=== PATIENT | male | born 1975 | race African-American/Black ===

== ENCOUNTER 2018-06-19 10:23 | Day surgery (SDC) | payer MEDICARE, MEDICAID ==
[~2018-06-19] VITALS: Ht 170.2 cm; Wt 67.2 kg
[~2018-06-19 10:23] MED LIST: ASPI-1159 PO; BUDE6.9H IH
[2018-06-19] MEDS ORDERED: LIDOCAINE HCL 1% 20ML VIAL (Pyxis) INJ ONE ×3 (10:44→13:45)
[2018-06-19] MEDS ORDERED: BACITRACIN 15GM TUBE TOP ONE ×2 (10:46→13:14)
[2018-06-19] MEDS ORDERED: HEPARIN SODIUM 1,000 UNIT/1ML VIAL IV ONE ×2 (10:46→13:46)
[2018-06-19] MEDS ORDERED: THROMBIN (BOVINE) 5000 UNITS/VIAL TOP ONE ×2 (10:46→13:46)
[2018-06-19] MEDS ORDERED: NORMAL SALINE 0.9% 10 ML SYR ONE (10:47)
[2018-06-19] MEDS ORDERED: BUPIVACAINE HCL/PF 0.5% (5MG/ML) 10ML ONE (10:47)
[2018-06-19] MEDS ORDERED: BACITRACIN 50,000 UNITS/VIAL ONE ×2 (10:47→13:46)
[2018-06-19 11:35] LABS: BASOPHILS % 0.9 % (0.0-2.0); EOSINOPHILS % 9.1 % (0.0-5.0); HEMATOCRIT. 42.2 % (42.0-52.0); HEMOGLOBIN. 13.2 g/dL (14.0-18.0); LYMPHOCYTES % 7.2 % (20.0-50.0); MEAN CORPUSCULAR HEMOGLOBIN 23.9 pg (28.0-32.0); MEAN CORPUSCULAR VOLUME 76.9 fL (80.0-94.0); MEAN PLATELET VOLUME 8.5 fl (7.4-10.4); MONOCYTES % 10.3 % (2.0-8.0); NEUTROPHILS % 72.5 % (40.0-76.0); PLATELET 217 x1000/uL (130-400); RED BLOOD CELL COUNT 5.49 mill/uL (4.7-6.1); RED CELL DISTRIBUTION WIDTH 18.9 % (11.6-14.6)
[2018-06-19 11:41] LABS: INR 1.1; PARTIAL THROMBOPLASTIN TIME 28.7 sec (23.4-31.0)
[2018-06-19] MEDS ORDERED: PROPOFOL 200MG/20ML VIAL IV ONE (11:49)
[2018-06-19] MEDS ORDERED: MIDAZOLAM HCL 2 MG/2 ML VIAL ONE (11:49)
[2018-06-19] MEDS ORDERED: ROCURONIUM BROMIDE 10MG/ML VIAL 5ML IV ONE (11:49)
[2018-06-19] MEDS ORDERED: EPHEDRINE SULFATE 50MG/ML VIAL ONE ×2 (11:49→11:50)
[2018-06-19] MEDS ORDERED: FENTANYL CITRATE/PF 50MCG/ML 2ML VIAL ONE (11:49)
[2018-06-19] MEDS ORDERED: PHENYLEPHRINE HCL 10 MG/ML 1ML (IV VIAL) IV ONE (11:50)
[2018-06-19] MEDS ORDERED: SODIUM CHLORIDE 0.9% 500 ML IV ONE (12:00)
[2018-06-19] MEDS ORDERED: REN800 PO (12:04)
[2018-06-19] MEDS ORDERED: FOLI1TAB63 PO (12:04)
[2018-06-19] MEDS ORDERED: ATOR10TA69 PO (12:04)
[2018-06-19] MEDS ORDERED: AMLO10TA80 PO (12:04)
[2018-06-19] MEDS ORDERED: CINA30 PO (12:04)
[2018-06-19] MEDS ORDERED: CEFAZOLIN SODIUM 1000MG/VIAL ONE (12:09)
[2018-06-19] MEDS ORDERED: SODIUM CHLORIDE 0.9% 10ML VIAL ONE (12:09)
[2018-06-19] MEDS ORDERED: HEPARIN 1000 UNITS/ML 10ML ONE (12:23)
[2018-06-19] MEDS ORDERED: BUPIVACAINE HCL/PF 0.25% (2.5MG/ML) 10ML ONE (13:45)
[2018-06-19] MEDS ORDERED: BACITRACIN/POLYMYXIN B SULFATE OINT 28.35GM TOP ONE (13:45)
[2018-06-19] MEDS ORDERED: HEPARIN 5000 UNITS/ML VIAL ONE (13:45)
[2018-06-19] MEDS ORDERED: HYDROMORPHONE HCL/PF 2MG/ML CPJ IV PRN (14:00)
[2018-06-19] MEDS ORDERED: ONDANSETRON HCL 4MG/2ML INJ IV PRN (14:15)
[2018-06-19] MEDS ORDERED: HEPARIN SODIUM 1,000 UNIT/1ML VIAL IV NR (14:30)
[2018-06-19] MEDS ORDERED: PROTAMINE SULFATE 10MG/ML VIAL 25ML IV NR (14:30)
[2018-06-19 14:54] VITALS: BP 124/92
== END 2018-06-19 16:25 | disposition home or self-care (01) ==
LOC: OR 10:23
PROVIDERS: ATTEND Surgery Vascular Surgery
DX: I12.0 Hypertensive chronic kidney disease with stage 5 chronic kidney disease or end stage renal disease (principal); N18.6 End stage renal disease; E78.00 Pure hypercholesterolemia, unspecified; J45.909 Unspecified asthma, uncomplicated; Z87.891 Personal history of nicotine dependence; Z79.899 Other long term (current) drug therapy; Z79.82 Long term (current) use of aspirin; Z86.73 Personal history of transient ischemic attack (TIA), and cerebral infarction without residual deficits; Z99.2 Dependence on renal dialysis
CPT/HCPCS: 36415; 36821; 80048; 85025; 85610; 85730; 93005; J0690; J1170; J1644; J2250; J2370; J2704; J2720; J3010; J3490

== ENCOUNTER 2018-06-20 15:27 | Emergency (ER) | payer MEDICARE, MEDICAID ==
[~2018-06-20] VITALS: Ht 182.9 cm; Wt 65.0 kg
[~2018-06-20 15:27] MED LIST changes: +AMLO10TA80 PO; +ATOR10TA69 PO; +CINA30 PO; +FOLI1TAB63 PO; +REN800 PO
[2018-06-20 18:08] VITALS: BP 123/83
== END 2018-06-20 18:11 | disposition home or self-care (01) ==
LOC: ER 15:27
DX: I77.0 Arteriovenous fistula, acquired (principal); I10 Essential (primary) hypertension; Z86.73 Personal history of transient ischemic attack (TIA), and cerebral infarction without residual deficits; Z98.890 Other specified postprocedural states; Z79.82 Long term (current) use of aspirin; Z79.899 Other long term (current) drug therapy
CPT/HCPCS: 99283

== ENCOUNTER 2018-07-31 09:12 | Day surgery (SDC) | payer MEDICARE, MEDICAID ==
[~2018-07-31] VITALS: Ht 182.9 cm; Wt 65.5 kg
[~2018-07-31 09:12] MED LIST changes: -ASPI-1159 PO; +ASPI-1393 PO
[2018-07-31 10:39] LABS: HEMATOCRIT. 41.1 % (42.0-52.0); HEMOGLOBIN. 12.8 g/dL (14.0-18.0); MEAN CORPUSCULAR HEMOGLOBIN 24.4 pg (28.0-32.0); MEAN PLATELET VOLUME 7.9 fl (7.4-10.4); PLATELET 192 x1000/uL (130-400); RED BLOOD CELL COUNT 5.26 mill/uL (4.7-6.1); RED CELL DISTRIBUTION WIDTH 20.1 % (11.6-14.6)
[2018-07-31 10:50] LABS: PROTHROMBIN TIME 10.5 sec (9.6-11.0)
[2018-07-31] MEDS ORDERED: SODIUM CHLORIDE 0.9% 500 ML IV ONE (11:00)
[2018-07-31] MEDS ORDERED: BACITRACIN 15GM TUBE TOP ONE (11:00)
[2018-07-31] MEDS ORDERED: LIDOCAINE HCL 1% 20ML VIAL (Pyxis) INJ ONE (11:01)
[2018-07-31] MEDS ORDERED: BUPIVACAINE HCL/PF 0.5% (5MG/ML) 10ML ONE (11:01)
[2018-07-31] MEDS ORDERED: THROMBIN (BOVINE) 5000 UNITS/VIAL TOP ONE ×2 (11:01→11:42)
[2018-07-31] MEDS ORDERED: HEPARIN SODIUM 1,000 UNIT/1ML VIAL IV ONE ×2 (11:01→14:45)
[2018-07-31] MEDS ORDERED: NORMAL SALINE 0.9% 10 ML SYR ONE (11:02)
[2018-07-31] MEDS ORDERED: BACITRACIN 50,000 UNITS/VIAL ONE (11:02)
[2018-07-31 11:28] LABS: PLATELET ESTIMATE NORMAL
[2018-07-31] MEDS ORDERED: PROPOFOL 200MG/20ML VIAL IV ONE (11:34)
[2018-07-31] MEDS ORDERED: LIDOCAINE HCL/PF 1% 10 MG/ML 5ML VIAL ONE (11:34)
[2018-07-31] MEDS ORDERED: MIDAZOLAM HCL 2 MG/2 ML VIAL ONE (11:35)
[2018-07-31] MEDS ORDERED: FENTANYL CITRATE/PF 50MCG/ML 2ML VIAL ONE ×2 (11:36→12:09)
[2018-07-31] MEDS ORDERED: PHENYLEPHRINE HCL 10 MG/ML 1ML (IV VIAL) IV ONE ×2 (11:59→12:28)
[2018-07-31] MEDS ORDERED: EPHEDRINE SULFATE 50MG/ML VIAL ONE (11:59)
[2018-07-31] MEDS ORDERED: SODIUM CHLORIDE 0.9% 10ML VIAL ONE (12:00)
[2018-07-31] MEDS ORDERED: CEFAZOLIN SODIUM 1000MG/VIAL ONE (12:01)
[2018-07-31] MEDS ORDERED: HEPARIN 1000 UNITS/ML 10ML ONE (12:20)
[2018-07-31] MEDS ORDERED: ONDANSETRON HCL 4MG/2ML INJ ONE (12:41)
[2018-07-31] MEDS ORDERED: HYDROMORPHONE HCL/PF 2MG/ML CPJ IV PRN (13:00)
[2018-07-31] MEDS ORDERED: MORPHINE SULFATE 2 MG/ML CPJ (NOT FOR IM USE) IV PRN (13:00)
[2018-07-31] MEDS ORDERED: ONDANSETRON HCL 4MG/2ML INJ IV PRN (13:00)
[2018-07-31] MEDS ORDERED: FENTANYL CITRATE/PF 50MCG/ML 2ML VIAL IV PRN (13:00)
[2018-07-31] MEDS ORDERED: MEPERIDINE HCL/PF 25MG/ML CPJ IV PRN (13:00)
[2018-07-31] MEDS ORDERED: HEPARIN SODIUM 1,000 UNIT/1ML VIAL IV NR ×2 (13:30→14:45)
== END 2018-07-31 14:55 | disposition home or self-care (01) ==
LOC: OR 09:12
PROVIDERS: ATTEND Surgery Vascular Surgery
DX: I12.0 Hypertensive chronic kidney disease with stage 5 chronic kidney disease or end stage renal disease (principal); N18.6 End stage renal disease; S40.022A Contusion of left upper arm, initial encounter; J45.909 Unspecified asthma, uncomplicated; T82.858D Stenosis of other vascular prosthetic devices, implants and grafts, subsequent encounter; Z86.73 Personal history of transient ischemic attack (TIA), and cerebral infarction without residual deficits; Z79.899 Other long term (current) drug therapy; Z87.891 Personal history of nicotine dependence; Z79.82 Long term (current) use of aspirin; X58.XXXA Exposure to other specified factors, initial encounter; Y93.89 Activity, other specified; Y92.89 Other specified places as the place of occurrence of the external cause; Y99.8 Other external cause status
CPT/HCPCS: 10140; 36415; 36830; 80048; 85025; 85610; 85730; C1768; J0690; J1644; J2250; J2370; J2405; J2704; J3010; J3490

== ENCOUNTER 2018-12-09 10:19 | Day surgery (SDC) | payer MEDICARE, MEDICAID ==
[~2018-12-09] VITALS: Ht 182.9 cm; Wt 65.5 kg
[2018-12-09] MEDS ORDERED: BACITRACIN 15GM TUBE TOP ONE (11:00)
[2018-12-09] MEDS ORDERED: THROMBIN (BOVINE) 5000 UNITS/VIAL TOP ONE (11:00)
[2018-12-09] MEDS ORDERED: LIDOCAINE HCL 1% 20ML VIAL (Pyxis) INJ ONE (11:00)
[2018-12-09] MEDS ORDERED: HEPARIN SODIUM 1,000 UNIT/1ML VIAL IV ONE (11:00)
[2018-12-09] MEDS ORDERED: BUPIVACAINE HCL/PF 0.5% (5MG/ML) 10ML ONE (11:01)
[2018-12-09] MEDS ORDERED: BACITRACIN 50,000 UNITS/VIAL ONE (11:02)
[2018-12-09 11:55] LABS: HEMATOCRIT. 36.6 % (42.0-52.0); HEMOGLOBIN. 11.8 g/dL (14.0-18.0); MEAN CORPUSCULAR HEMOGLOBIN 27.4 pg (28.0-32.0); MEAN CORPUSCULAR VOLUME 84.7 fL (80.0-94.0); MEAN PLATELET VOLUME 7.7 fl (7.4-10.4); PLATELET 304 x1000/uL (130-400); RED BLOOD CELL COUNT 4.32 mill/uL (4.7-6.1); RED CELL DISTRIBUTION WIDTH 17.5 % (11.6-14.6)
[2018-12-09] MEDS ORDERED: SODIUM CHLORIDE 0.9% 500 ML IV ONE (12:00)
[2018-12-09 12:12] LABS: PARTIAL THROMBOPLASTIN TIME 26.6 sec (23.4-31.0); PROTHROMBIN TIME 10.7 sec (9.6-11.0)
[2018-12-09 12:40] LABS: PLATELET ESTIMATE NORMAL
[2018-12-09] MEDS ORDERED: FENTANYL CITRATE/PF 50MCG/ML 2ML VIAL ONE ×2 (15:46→15:58)
[2018-12-09] MEDS ORDERED: MIDAZOLAM HCL 2 MG/2 ML VIAL ONE ×2 (15:46→15:58)
[2018-12-09] MEDS ORDERED: PROPOFOL 200MG/20ML VIAL IV ONE (15:56)
[2018-12-09] MEDS ORDERED: MEPERIDINE HCL/PF 25MG/ML CPJ IV PRN (16:15)
[2018-12-09] MEDS ORDERED: ONDANSETRON HCL 4MG/2ML INJ IV PRN (16:15)
[2018-12-09] MEDS ORDERED: LABETALOL 5MG/ML SYR 20 MG/4 ML SYRINGE IV PRN (16:15)
[2018-12-09] MEDS ORDERED: HYDROMORPHONE HCL/PF 2MG/ML CPJ IV PRN (16:15)
== END 2018-12-09 17:55 | disposition home or self-care (01) ==
LOC: OR 10:19
PROVIDERS: ATTEND Surgery Vascular Surgery
DX: T82.868A Thrombosis due to vascular prosthetic devices, implants and grafts, initial encounter (principal); I12.0 Hypertensive chronic kidney disease with stage 5 chronic kidney disease or end stage renal disease; N18.6 End stage renal disease; E78.00 Pure hypercholesterolemia, unspecified; J45.909 Unspecified asthma, uncomplicated; Z79.899 Other long term (current) drug therapy; Z99.2 Dependence on renal dialysis; Z79.82 Long term (current) use of aspirin; Z72.89 Other problems related to lifestyle; Y83.2 Surgical operation with anastomosis, bypass or graft as the cause of abnormal reaction of the patient, or of later complication, without mention of misadventure at the time of the procedure; Y92.89 Other specified places as the place of occurrence of the external cause
CPT/HCPCS: 36415; 36831; 80048; 85025; 85610; 85730; 88304; 93005; C1884; J1644; J2250; J2704; J3010; J3490; J7040

== ENCOUNTER 2019-03-07 15:21 | Inpatient (IN) | payer MEDICARE, MEDICAID ==
[~2019-03-07] VITALS: Ht 182.9 cm; Wt 68.5 kg
[~2019-03-07 15:21] MED LIST changes: -AMLO10TA80 PO; -ASPI-1393 PO; +ASPI-1497 PO
[2019-03-07] MEDS ORDERED: ACETAMINOPHEN 325MG TABLET PO STA (16:16)
[2019-03-07] MEDS ORDERED: SODIUM CHLORIDE 0.9% 1000ML BAG (SEPSIS BOLUS) IV ONE (16:30)
[2019-03-07] MEDS ORDERED: VANCOMYCIN 1 G PREMIX 200 ML IV ONE (16:30)
[2019-03-07] MEDS ORDERED: PIPERACILLIN/TAZ 3.375G PREMIX 50 ML IV ONE (16:30)
[2019-03-07 16:51] LABS: CHLORIDE 93 mEq/L (98-107)
[2019-03-07 16:53] LABS: HEMATOCRIT. 34.5 % (42.0-52.0); MEAN CORPUSCULAR HEMOGLOBIN 25.7 pg (28.0-32.0); MEAN CORPUSCULAR VOLUME 80.4 fL (80.0-94.0); MEAN PLATELET VOLUME 9.4 fl (7.4-10.4); PLATELET 220 x1000/uL (130-400); RED BLOOD CELL COUNT 4.29 mill/uL (4.7-6.1); RED CELL DISTRIBUTION WIDTH 15.9 % (11.6-14.6)
[2019-03-07 16:54] LABS: INR 1.1; PROTHROMBIN TIME 10.9 sec (9.6-11.0)
[2019-03-07 17:36] LABS: PLATELET ESTIMATE NORMAL
[2019-03-07] MEDS ORDERED: ENOXAPARIN 40MG/0.4ML SYR SUBCUT SCH (19:15)
[2019-03-07] MEDS ORDERED: IPRATROPIUM/ALBUTEROL 0.5-3(2.5)MG/3ML NEB NEB PRN (19:15)
[2019-03-07] MEDS ORDERED: CLONIDINE 0.1MG TABLET PO PRN (19:15)
[2019-03-07] MEDS ORDERED: NITROGLYCERIN 0.4MG TABLET SL SL PRN (19:15)
[2019-03-07] MEDS ORDERED: DOCUSATE SODIUM 100MG CAPSULE PO PRN (19:15)
[2019-03-07] MEDS ORDERED: ONDANSETRON HCL 4MG/2ML INJ IV PRN (19:15)
[2019-03-07] MEDS ORDERED: MAGNESIUM/ALUMINUM HYDROXIDE/SIMETHICONE 30ML UDC PO PRN (19:15)
[2019-03-07] MEDS ORDERED: DEXT 5%/LACTATED RINGERS 1,000 ML IV SCH ×2 (19:28)
[2019-03-07] MEDS ORDERED: SODIUM CHLORIDE 0.9% 1,000 ML IV ONE (19:30)
[2019-03-07] MEDS ORDERED: NOREPINEPHRINE 4 MG in DEXT 5% WATER 246 ML IV ONE ×2 (20:15→20:45)
[2019-03-07] MEDS ORDERED: NOREPINEPHRINE 4MG/250ML PMX 250 ML IV ONE (20:30)
[2019-03-07] MEDS ORDERED: TRAMADOL 50MG TABLET PO PRN (22:00)
[2019-03-07] MEDS ORDERED: ZOLPIDEM TARTRATE 5MG TABLET PO PRN (22:00)
[2019-03-07] MEDS ORDERED: PIPERACILLIN/TAZ 3.375G PREMIX 50 ML IV NR (23:46)
[2019-03-08 01:04] LABS: CREATINE KINASE 74 IU/L (39-308)
[2019-03-08 01:05] LABS: CREATINE KINASE MB FRACTION < 1.0 ng/mL (0.5-3.6)
[2019-03-08] MEDS ORDERED: ALBUMIN HUMAN 25GM/100ML (25%) IV NR (02:00)
[2019-03-08] MEDS: GUAIFENESIN 200MG/10ML SUGAR FREE UDC PO PRN (02:25)
[2019-03-08] MEDS: ACETAMINOPHEN 325MG TABLET PO PRN (02:25)
[2019-03-08 05:40] LABS: CHLORIDE 98 mEq/L (98-107)
[2019-03-08 05:45] LABS: HEMOGLOBIN. 9.2 g/dL (14.0-18.0); MEAN CORPUSCULAR HEMOGLOBIN 25.5 pg (28.0-32.0); MEAN CORPUSCULAR VOLUME 80.1 fL (80.0-94.0); MEAN PLATELET VOLUME 9.6 fl (7.4-10.4); PLATELET 210 x1000/uL (130-400); RED BLOOD CELL COUNT 3.63 mill/uL (4.7-6.1); RED CELL DISTRIBUTION WIDTH 16.1 % (11.6-14.6)
[2019-03-08 05:48] LABS: CREATINE KINASE 69 IU/L (39-308)
[2019-03-08 05:50] LABS: CREATINE KINASE MB FRACTION < 1.0 ng/mL (0.5-3.6)
[2019-03-08] MEDS: PIPERACILLIN/TAZ 3.375G PREMIX 50 ML IV SCH ×2 (06:00→14:00)
[2019-03-08] MEDS ORDERED: NOREPINEPHRINE 4MG/250ML PMX 250 ML IV ONE (06:41)
[2019-03-08 07:17] LABS: PLATELET ESTIMATE NORMAL
[2019-03-08] MEDS ORDERED: ASPIRIN 325MG EC TABLET PO SCH (09:00)
[2019-03-08] MEDS: SEVELAMER CARBONATE 800 MG TABLET PO SCH ×3 (09:00→13:00)
[2019-03-08] MEDS: ZINC SULFATE 220 MG ( 50 ) CAPSULE PO SCH (09:00)
[2019-03-08] MEDS ORDERED: NOREPINEPHRINE 4MG/250ML PMX 250 ML IV NR (15:07)
[2019-03-08] MEDS ORDERED: PIPERACILLIN/TAZ 3.375G PREMIX 50 ML IV NR (16:45)
[2019-03-09] VITALS (73 sets, daily range): BP systolic 52–140; BP diastolic 22–104
[2019-03-09] MEDS: ACETAMINOPHEN 325MG TABLET PO PRN ×2 (02:50→15:40)
[2019-03-09] MEDS ORDERED: DIPY75TA37 MT (04:33)
[2019-03-09] MEDS ORDERED: [UNRECOGNIZED DRUG - OTHER] (04:33)
[2019-03-09] MEDS ORDERED: SEVE800T8 MT (04:33)
[2019-03-09] MEDS: PIPERACILLIN/TAZOBACTAM 2.25 G in DEXTROSE 5% WATER 50 ML IV SCH ×3 (05:08→21:05)
[2019-03-09] MEDS: NOREPINEPHRINE 16 MG in DEXT 5% WATER 234 ML IV PRN ×2 (05:31→21:22)
[2019-03-09 06:01] LABS: HEMATOCRIT. 31.7 % (42.0-52.0); HEMOGLOBIN. 9.9 g/dL (14.0-18.0); MEAN CORPUSCULAR HEMOGLOBIN 25.1 pg (28.0-32.0); MEAN CORPUSCULAR VOLUME 80.1 fL (80.0-94.0); MEAN PLATELET VOLUME 9.1 fl (7.4-10.4); PLATELET 263 x1000/uL (130-400); RED BLOOD CELL COUNT 3.96 mill/uL (4.7-6.1); RED CELL DISTRIBUTION WIDTH 16.2 % (11.6-14.6)
[2019-03-09 07:45] LABS: PLATELET ESTIMATE NORMAL
[2019-03-09] MEDS ORDERED: CEFAZOLIN SODIUM 1000MG/VIAL IM ONE (08:15)
[2019-03-09] MEDS ORDERED: SODIUM BICARBONATE 4% (2.4MEQ) 5ML VIAL IV ONE (08:24)
[2019-03-09] MEDS ORDERED: LIDOCAINE HCL 1% 20ML VIAL (Pyxis) INJ ONE (08:24)
[2019-03-09] MEDS: SEVELAMER CARBONATE 800 MG TABLET PO SCH ×3 (08:34→17:09)
[2019-03-09] MEDS: GUAIFENESIN/DM 600MG/30MG ER TAB 12HR PO SCH ×2 (08:34→23:33)
[2019-03-09] MEDS: FAMOTIDINE 20MG TABLET PO SCH (08:34)
[2019-03-09] MEDS: ZINC SULFATE 220 MG ( 50 ) CAPSULE PO SCH (08:34)
[2019-03-09] MEDS: ASCORBIC ACID 500 MG TABLET PO SCH ×2 (08:34→21:10)
[2019-03-09] MEDS ORDERED: DOPAMINE 400MG/250ML PREMIX 250 ML IV PRN (09:15)
[2019-03-09] MEDS ORDERED: VASOPRESSIN 10 UNIT in SODIUM CHLORIDE 0.9% 99.5 ML IV PRN (09:30)
[2019-03-09 09:50] LABS: INR 1.2
[2019-03-09] MEDS ORDERED: PHENYLEPHRINE HCL 10 MG/ML 1ML (IV VIAL) IV ONE (09:51)
[2019-03-09] MEDS: PHENYLEPHRINE 40 MG in DEXT 5% WATER 246 ML IV PRN ×4 (10:08→22:40)
[2019-03-09] MEDS ORDERED: CEFAZOLIN 1000MG PREMIX 50 ML IV SCH (12:00)
[2019-03-09] MEDS ORDERED: VANCOMYCIN 750 MG PREMIX 150 ML IV SCH (12:00)
[2019-03-09] MEDS: IPRATROPIUM/ALBUTEROL 0.5-3(2.5)MG/3ML NEB HHN SCH ×2 (16:30→20:48)
[2019-03-09] MEDS: ACETYLCYSTEINE 100MG/ML 10% VIAL 4ML INH SCH (16:31)
[2019-03-09] MEDS: ATORVASTATIN CALCIUM 10MG TABLET PO SCH (21:10)
[2019-03-10] VITALS (100 sets, daily range): BP systolic 55–167; BP diastolic 23–111
[2019-03-10] MEDS: IPRATROPIUM/ALBUTEROL 0.5-3(2.5)MG/3ML NEB HHN SCH ×7 (00:21→21:08)
[2019-03-10] MEDS: ACETYLCYSTEINE 100MG/ML 10% VIAL 4ML INH SCH ×3 (00:21→17:58)
[2019-03-10] MEDS: PHENYLEPHRINE 40 MG in DEXT 5% WATER 246 ML IV PRN (03:56)
[2019-03-10] MEDS: PIPERACILLIN/TAZOBACTAM 2.25 G in DEXTROSE 5% WATER 50 ML IV SCH ×2 (03:56→11:26)
[2019-03-10 06:20] LABS: HEMATOCRIT. 34.1 % (42.0-52.0); HEMOGLOBIN. 10.8 g/dL (14.0-18.0); MEAN CORPUSCULAR HEMOGLOBIN 25.4 pg (28.0-32.0); MEAN CORPUSCULAR VOLUME 80.4 fL (80.0-94.0); MEAN PLATELET VOLUME 9.3 fl (7.4-10.4); PLATELET 316 x1000/uL (130-400); RED BLOOD CELL COUNT 4.24 mill/uL (4.7-6.1); RED CELL DISTRIBUTION WIDTH 16.3 % (11.6-14.6)
[2019-03-10] MEDS: GUAIFENESIN/DM 600MG/30MG ER TAB 12HR PO SCH ×4 (07:08→20:51)
[2019-03-10] MEDS: ENOXAPARIN 30MG/0.3ML SYR SUBCUT SCH (08:29)
[2019-03-10] MEDS: FAMOTIDINE 20MG TABLET PO SCH (08:29)
[2019-03-10] MEDS: ASCORBIC ACID 500 MG TABLET PO SCH ×2 (08:29→20:51)
[2019-03-10] MEDS: ZINC SULFATE 220 MG ( 50 ) CAPSULE PO SCH (08:29)
[2019-03-10] MEDS: SEVELAMER CARBONATE 800 MG TABLET PO SCH ×3 (08:30→17:34)
[2019-03-10] MEDS: NOREPINEPHRINE 16 MG in DEXT 5% WATER 234 ML IV PRN (11:19)
[2019-03-10] MEDS: METOCLOPRAMIDE HCL 10MG/2ML VIAL IV SCH ×3 (12:49→23:25)
[2019-03-10] MEDS: CHLORPROMAZINE HCL 10 MG TABLET PO SCH ×3 (13:38→21:27)
[2019-03-10 17:06] LABS: PLATELET ESTIMATE NORMAL
[2019-03-10] MEDS: CEFAZOLIN 2,000 MG in DEXT 5% WATER 100 ML IV SCH (17:34)
[2019-03-10] MEDS: CEFTAZIDIME PENTAHYDRATE 1 G in DEXTROSE 5% WATER 50 ML IV SCH (17:34)
[2019-03-10] MEDS: ATORVASTATIN CALCIUM 10MG TABLET PO SCH (20:51)
[2019-03-10] MEDS: AMIODARONE HCL 200 MG TABLET PO PRN (23:25)
[2019-03-11] VITALS (98 sets, daily range): BP systolic 66–137; BP diastolic 36–99
[2019-03-11] MEDS: PHENYLEPHRINE 40 MG in DEXT 5% WATER 246 ML IV PRN ×3 (03:38→12:13)
[2019-03-11] MEDS: CHLORPROMAZINE HCL 10 MG TABLET PO SCH ×3 (05:34→21:51)
[2019-03-11] MEDS: METOCLOPRAMIDE HCL 10MG/2ML VIAL IV SCH ×3 (05:34→17:25)
[2019-03-11 06:19] LABS: HEMATOCRIT. 26.6 % (42.0-52.0); HEMOGLOBIN. 8.5 g/dL (14.0-18.0); MEAN CORPUSCULAR HEMOGLOBIN 25.5 pg (28.0-32.0); MEAN CORPUSCULAR VOLUME 79.4 fL (80.0-94.0); MEAN PLATELET VOLUME 9.4 fl (7.4-10.4); PLATELET 329 x1000/uL (130-400); RED BLOOD CELL COUNT 3.35 mill/uL (4.7-6.1); RED CELL DISTRIBUTION WIDTH 16.5 % (11.6-14.6)
[2019-03-11] MEDS ORDERED: CEFAZOLIN SODIUM 1000MG/VIAL IM ONE (06:45)
[2019-03-11] MEDS: GUAIFENESIN/DM 600MG/30MG ER TAB 12HR PO SCH ×2 (09:20→21:51)
[2019-03-11] MEDS: SEVELAMER CARBONATE 800 MG TABLET PO SCH ×3 (09:20→18:41)
[2019-03-11] MEDS: FAMOTIDINE 20MG TABLET PO SCH (09:20)
[2019-03-11] MEDS: ASCORBIC ACID 500 MG TABLET PO SCH ×2 (09:20→21:51)
[2019-03-11] MEDS: AMIODARONE HCL 200 MG TABLET PO PRN ×2 (09:20→17:35)
[2019-03-11] MEDS: ZINC SULFATE 220 MG ( 50 ) CAPSULE PO SCH (09:21)
[2019-03-11] MEDS: ENOXAPARIN 30MG/0.3ML SYR SUBCUT SCH (09:21)
[2019-03-11 09:41] LABS: PLATELET ESTIMATE NORMAL
[2019-03-11 10:11] LABS: HEPATITIS B SURFACE ANTIGEN NEGATIVE
[2019-03-11] MEDS: MIDODRINE HCL 2.5MG TABLET PO SCH ×2 (12:13→17:25)
[2019-03-11] MEDS ORDERED: PHENYLEPHRINE 80 MG in DEXT 5% WATER 500 ML IV PRN (12:15)
[2019-03-11] MEDS: CEFTAZIDIME PENTAHYDRATE 1 G in DEXTROSE 5% WATER 50 ML IV SCH (13:15)
[2019-03-11] MEDS: CEFAZOLIN 2,000 MG in DEXT 5% WATER 100 ML IV SCH (17:25)
[2019-03-11] MEDS: IPRATROPIUM/ALBUTEROL 0.5-3(2.5)MG/3ML NEB HHN SCH (20:00)
[2019-03-11] MEDS ORDERED: EPOETIN ALFA 10000UNITS/ML VIAL SUBCUT SCH (21:00)
[2019-03-11] MEDS ORDERED: EPOETIN ALFA 4000UNITS/ML VIAL SUBCUT SCH (21:00)
[2019-03-11] MEDS: ATORVASTATIN CALCIUM 10MG TABLET PO SCH (21:51)
[2019-03-12] VITALS (46 sets, daily range): BP systolic 96–131; BP diastolic 49–82
[2019-03-12] MEDS: METOCLOPRAMIDE HCL 10MG/2ML VIAL IV SCH ×4 (00:05→18:29)
[2019-03-12] MEDS: CHLORPROMAZINE HCL 10 MG TABLET PO SCH ×3 (05:00→21:17)
[2019-03-12 05:11] LABS: HIV SCREEN 4G Non Reactive (Non Reactive)
[2019-03-12 05:58] LABS: HEMATOCRIT. 25.5 % (42.0-52.0); HEMOGLOBIN. 8.2 g/dL (14.0-18.0); MEAN CORPUSCULAR HEMOGLOBIN 25.6 pg (28.0-32.0); MEAN CORPUSCULAR VOLUME 79.4 fL (80.0-94.0); MEAN PLATELET VOLUME 8.9 fl (7.4-10.4); PLATELET 378 x1000/uL (130-400); RED BLOOD CELL COUNT 3.22 mill/uL (4.7-6.1); RED CELL DISTRIBUTION WIDTH 16.6 % (11.6-14.6)
[2019-03-12] MEDS ORDERED: CEFAZOLIN SODIUM 1000MG/VIAL IM ONE (08:00)
[2019-03-12] MEDS: IPRATROPIUM/ALBUTEROL 0.5-3(2.5)MG/3ML NEB HHN SCH ×4 (08:05→21:45)
[2019-03-12] MEDS: ACETYLCYSTEINE 100MG/ML 10% VIAL 4ML INH SCH ×3 (08:05→21:17)
[2019-03-12 08:25] LABS: PLATELET ESTIMATE NORMAL
[2019-03-12] MEDS: ZINC SULFATE 220 MG ( 50 ) CAPSULE PO SCH (08:39)
[2019-03-12] MEDS: FAMOTIDINE 20MG TABLET PO SCH (08:39)
[2019-03-12] MEDS: ASCORBIC ACID 500 MG TABLET PO SCH ×2 (08:39→21:16)
[2019-03-12] MEDS: GUAIFENESIN/DM 600MG/30MG ER TAB 12HR PO SCH ×2 (08:39→21:00)
[2019-03-12] MEDS: ENOXAPARIN 30MG/0.3ML SYR SUBCUT SCH (08:39)
[2019-03-12] MEDS: MIDODRINE HCL 2.5MG TABLET PO SCH ×3 (08:39→18:33)
[2019-03-12] MEDS: SEVELAMER CARBONATE 800 MG TABLET PO SCH ×3 (08:51→18:29)
[2019-03-12] MEDS: CEFTAZIDIME PENTAHYDRATE 1 G in DEXTROSE 5% WATER 50 ML IV SCH (15:36)
[2019-03-12] MEDS: CEFAZOLIN 2,000 MG in DEXT 5% WATER 100 ML IV SCH (18:32)
[2019-03-12] MEDS: AMIODARONE HCL 200 MG TABLET PO SCH (21:16)
[2019-03-12] MEDS: ATORVASTATIN CALCIUM 10MG TABLET PO SCH (21:16)
[2019-03-13] VITALS: BP 118/58
[2019-03-13] MEDS: METOCLOPRAMIDE HCL 10MG/2ML VIAL IV SCH ×3 (01:23→13:21)
[2019-03-13 04:00] VITALS: BP 99/47
[2019-03-13] MEDS: AMIODARONE HCL 200 MG TABLET PO SCH ×2 (05:50→13:22)
[2019-03-13] MEDS: CHLORPROMAZINE HCL 10 MG TABLET PO SCH ×2 (05:50→13:22)
[2019-03-13] MEDS: ACETYLCYSTEINE 100MG/ML 10% VIAL 4ML INH SCH ×2 (06:00→14:00)
[2019-03-13 08:00] VITALS: BP 106/52
[2019-03-13] MEDS: IPRATROPIUM/ALBUTEROL 0.5-3(2.5)MG/3ML NEB HHN SCH ×3 (08:00→16:00)
[2019-03-13] MEDS: FAMOTIDINE 20MG TABLET PO SCH ×2 (09:00→10:21)
[2019-03-13] MEDS: GUAIFENESIN/DM 600MG/30MG ER TAB 12HR PO SCH ×2 (09:00→10:28)
[2019-03-13] MEDS: MIDODRINE HCL 2.5MG TABLET PO SCH ×3 (09:00→17:43)
[2019-03-13] MEDS: SEVELAMER CARBONATE 800 MG TABLET PO SCH ×2 (10:20→13:21)
[2019-03-13] MEDS: GUAIFENESIN 200MG/10ML SUGAR FREE UDC PO PRN (10:21)
[2019-03-13] MEDS: ASCORBIC ACID 500 MG TABLET PO SCH (10:21)
[2019-03-13] MEDS: ZINC SULFATE 220 MG ( 50 ) CAPSULE PO SCH (10:21)
[2019-03-13] MEDS: ENOXAPARIN 30MG/0.3ML SYR SUBCUT SCH (10:22)
[2019-03-13 12:00] VITALS: BP 124/61
[2019-03-13] MEDS ORDERED: INSULIN LISPRO 100 UNITS/ML SUBCUT NR (13:15)
[2019-03-13] MEDS: CEFTAZIDIME PENTAHYDRATE 1 G in DEXTROSE 5% WATER 50 ML IV SCH (14:44)
[2019-03-13] MEDS: ACETAMINOPHEN 325MG TABLET PO PRN (15:33)
[2019-03-13 16:00] VITALS: BP 103/47
[2019-03-13 16:50] VITALS: BP 103/47
[2019-03-13] MEDS ORDERED: EPOETIN ALFA 10000UNITS/ML VIAL SUBCUT SCH (21:00)
== END 2019-03-13 17:50 | DRG 314 ==
LOC: ER 15:21 → EDBEDREQ 19:12 → SUPCPDRO 19:13 → EDBEDREQTM 19:48 → CVICU 20:16 → EDBEDREQSVC 20:18 → EDBEDREQTM 20:21 → ENRESERV 03-09 01:22 → 6WST 03-12 10:50
PROVIDERS: ADMIT Internal Medicine; ATTEND Internal Medicine
PROC: 05HY33Z Insertion of Infusion Device into Upper Vein, Percutaneous Approach (ICD-10-PCS; 2019-03-07)
PROC: B54NZZZ Ultrasonography of Left Upper Extremity Veins (ICD-10-PCS; 2019-03-07)
PROC: 5A1D70Z Performance of Urinary Filtration, Intermittent, Less than 6 Hours Per Day (ICD-10-PCS; principal; 2019-03-08)
PROC: 0JPV3XZ Removal of Tunneled Vascular Access Device from Upper Extremity Subcutaneous Tissue and Fascia, Percutaneous Approach (ICD-10-PCS; 2019-03-09)
PROC: 05PYX3Z Removal of Infusion Device from Upper Vein, External Approach (ICD-10-PCS; 2019-03-09)
DX: T80.211A Bloodstream infection due to central venous catheter, initial encounter (principal); A41.01 Sepsis due to Methicillin susceptible Staphylococcus aureus; R65.21 Severe sepsis with septic shock; J69.0 Pneumonitis due to inhalation of food and vomit; J96.00 Acute respiratory failure, unspecified whether with hypoxia or hypercapnia; N18.6 End stage renal disease; G92 Toxic encephalopathy; E87.1 Hypo-osmolality and hyponatremia; E44.0 Moderate protein-calorie malnutrition; D62 Acute posthemorrhagic anemia; E87.2 Acidosis; I13.11 Hypertensive heart and chronic kidney disease without heart failure, with stage 5 chronic kidney disease, or end stage renal disease; I69.351 Hemiplegia and hemiparesis following cerebral infarction affecting right dominant side; D63.8 Anemia in other chronic diseases classified elsewhere; E78.00 Pure hypercholesterolemia, unspecified; E78.5 Hyperlipidemia, unspecified; F17.210 Nicotine dependence, cigarettes, uncomplicated; I95.1 Orthostatic hypotension; J44.9 Chronic obstructive pulmonary disease, unspecified; R13.10 Dysphagia, unspecified; Y83.2 Surgical operation with anastomosis, bypass or graft as the cause of abnormal reaction of the patient, or of later complication, without mention of misadventure at the time of the procedure; R74.0 Nonspecific elevation of levels of transaminase and lactic acid dehydrogenase [LDH]; I44.0 Atrioventricular block, first degree; M25.512 Pain in left shoulder; Z79.51 Long term (current) use of inhaled steroids; Z82.49 Family history of ischemic heart disease and other diseases of the circulatory system; Z83.2 Family history of diseases of the blood and blood-forming organs and certain disorders involving the immune mechanism; Z99.2 Dependence on renal dialysis; Z68.20 Body mass index [BMI] 20.0-20.9, adult; I69.320 Aphasia following cerebral infarction; Z79.82 Long term (current) use of aspirin; Y92.89 Other specified places as the place of occurrence of the external cause
CPT/HCPCS: 36415; 36589; 71045; 71250; 73030; 80048; 80053; 80061; 80202; 82270; 83036; 83605; 83735; 84443; 84484; 85025; 85651; 86803; 87077; 87340; 87389; 92610; 93005; 93306; 93970; 94640; 97162; 99285; A6261; J0690; J0713; J0885; J1650; J2370; J2543; J2765; J3370; J3490; J7030; J7040; J7060; J7608; J7620; P9047; Q0161

== ENCOUNTER 2019-03-13 18:59 | Inpatient (IN) | payer MEDICARE, MEDICAID ==
[~2019-03-13] VITALS: Ht 182.9 cm; Wt 68.5 kg
[2019-03-13] MEDS: ACETYLCYSTEINE 100MG/ML 10% VIAL 4ML INH SCH (00:21)
[~2019-03-13 18:59] MED LIST changes: +DIPY75TA37 MT; +SEVE800T8 MT; +[UNRECOGNIZED DRUG - OTHER]
[2019-03-13] MEDS ORDERED: AMIODARONE HCL 200 MG TABLET PO SCH (19:30)
[2019-03-13] MEDS ORDERED: DOCUSATE SODIUM 100MG CAPSULE PO PRN (19:30)
[2019-03-13] MEDS ORDERED: CLONIDINE 0.1MG TABLET PO PRN (19:30)
[2019-03-13] MEDS ORDERED: ONDANSETRON HCL 4MG/2ML INJ IV PRN (19:30)
[2019-03-13] MEDS ORDERED: IPRATROPIUM/ALBUTEROL 0.5-3(2.5)MG/3ML NEB HHN PRN (19:30)
[2019-03-13] MEDS ORDERED: MAGNESIUM/ALUMINUM HYDROXIDE/SIMETHICONE 30ML UDC PO PRN (19:30)
[2019-03-13] MEDS ORDERED: GUAIFENESIN 200MG/10ML SUGAR FREE UDC PO PRN (19:30)
[2019-03-13] MEDS ORDERED: NITROGLYCERIN 0.4MG TABLET SL SL PRN (19:30)
[2019-03-13 20:00] VITALS: BP 119/65
[2019-03-13] MEDS: IPRATROPIUM/ALBUTEROL 0.5-3(2.5)MG/3ML NEB HHN SCH (21:00)
[2019-03-13] MEDS: ASCORBIC ACID 500 MG TABLET PO SCH (22:13)
[2019-03-13] MEDS: GUAIFENESIN/DM 600MG/30MG ER TAB 12HR PO SCH (22:13)
[2019-03-13] MEDS: ATORVASTATIN CALCIUM 10MG TABLET PO SCH (22:14)
[2019-03-13] MEDS: CHLORPROMAZINE HCL 10 MG TABLET PO SCH (22:59)
[2019-03-13] MEDS: EPOETIN ALFA 10000UNITS/ML VIAL SUBCUT SCH (22:59)
[2019-03-13] MEDS: AMIODARONE HCL 200 MG TABLET PO SCH (22:59)
[2019-03-13] MEDS: CEFAZOLIN 2,000 MG in DEXT 5% WATER 100 ML IV SCH (22:59)
[2019-03-13] MEDS: METOCLOPRAMIDE HCL 10MG/2ML VIAL IV SCH (23:56)
[2019-03-14] MEDS: IPRATROPIUM/ALBUTEROL 0.5-3(2.5)MG/3ML NEB HHN SCH ×5 (02:16→20:40)
[2019-03-14] MEDS: METOCLOPRAMIDE HCL 10MG/2ML VIAL IV SCH ×4 (05:43→23:35)
[2019-03-14] MEDS: CHLORPROMAZINE HCL 10 MG TABLET PO SCH ×4 (05:44→21:09)
[2019-03-14] MEDS: AMIODARONE HCL 200 MG TABLET PO SCH ×3 (05:45→21:08)
[2019-03-14 07:29] LABS: HEMATOCRIT. 27.6 % (42.0-52.0); HEMOGLOBIN. 8.6 g/dL (14.0-18.0); MEAN CORPUSCULAR HEMOGLOBIN 24.9 pg (28.0-32.0); MEAN CORPUSCULAR VOLUME 79.4 fL (80.0-94.0); MEAN PLATELET VOLUME 8.7 fl (7.4-10.4); PLATELET 577 x1000/uL (130-400); RED BLOOD CELL COUNT 3.48 mill/uL (4.7-6.1); RED CELL DISTRIBUTION WIDTH 16.5 % (11.6-14.6)
[2019-03-14 07:51] VITALS: BP 118/60
[2019-03-14 08:11] LABS: CHLORIDE 101 mEq/L (98-107)
[2019-03-14] MEDS: FAMOTIDINE 20MG TABLET PO SCH ×2 (09:00→09:04)
[2019-03-14] MEDS: ACETYLCYSTEINE 100MG/ML 10% VIAL 4ML INH SCH ×3 (09:00→22:00)
[2019-03-14] MEDS: ACETAMINOPHEN 325MG TABLET PO PRN (09:02)
[2019-03-14] MEDS: MIDODRINE HCL 2.5MG TABLET PO SCH ×3 (09:04→17:03)
[2019-03-14] MEDS: ASCORBIC ACID 500 MG TABLET PO SCH ×2 (09:04→21:08)
[2019-03-14] MEDS: ASPIRIN 325MG EC TABLET PO SCH (09:04)
[2019-03-14] MEDS: GUAIFENESIN/DM 600MG/30MG ER TAB 12HR PO SCH ×2 (09:04→21:00)
[2019-03-14] MEDS: ENOXAPARIN 30MG/0.3ML SYR SUBCUT SCH (09:04)
[2019-03-14] MEDS: ZINC SULFATE 220 MG ( 50 ) CAPSULE PO SCH (09:05)
[2019-03-14] MEDS: SEVELAMER CARBONATE 800 MG TABLET PO SCH ×3 (09:05→17:02)
[2019-03-14 12:32] VITALS: BP 123/62
[2019-03-14] MEDS ORDERED: CEFTAZIDIME PENTAHYDRATE 1 G in DEXTROSE 5% WATER 50 ML IV SCH (14:00)
[2019-03-14 16:58] VITALS: BP 119/58
[2019-03-14 20:00] VITALS: BP 99/54
[2019-03-14] MEDS: CEFAZOLIN 2,000 MG in DEXT 5% WATER 100 ML IV SCH (20:39)
[2019-03-14 20:40] LABS: PLATELET ESTIMATE INCREASED
[2019-03-14] MEDS: ATORVASTATIN CALCIUM 10MG TABLET PO SCH (21:08)
[2019-03-15] MEDS: IPRATROPIUM/ALBUTEROL 0.5-3(2.5)MG/3ML NEB HHN SCH ×6 (00:20→20:00)
[2019-03-15] MEDS: AMIODARONE HCL 200 MG TABLET PO SCH ×3 (05:54→21:11)
[2019-03-15] MEDS: METOCLOPRAMIDE HCL 10MG/2ML VIAL IV SCH ×4 (05:54→23:13)
[2019-03-15] MEDS: CHLORPROMAZINE HCL 10 MG TABLET PO SCH ×3 (05:54→21:13)
[2019-03-15] MEDS: ACETYLCYSTEINE 100MG/ML 10% VIAL 4ML INH SCH ×2 (05:59→14:00)
[2019-03-15 08:01] VITALS: BP 122/60
[2019-03-15] MEDS: ENOXAPARIN 30MG/0.3ML SYR SUBCUT SCH (08:51)
[2019-03-15] MEDS: ASCORBIC ACID 500 MG TABLET PO SCH ×2 (08:51→21:11)
[2019-03-15] MEDS: MIDODRINE HCL 2.5MG TABLET PO SCH ×3 (08:52→16:46)
[2019-03-15] MEDS: ASPIRIN 325MG EC TABLET PO SCH (08:52)
[2019-03-15] MEDS: ACETAMINOPHEN 325MG TABLET PO PRN (08:52)
[2019-03-15] MEDS: GUAIFENESIN/DM 600MG/30MG ER TAB 12HR PO SCH ×2 (08:53→21:00)
[2019-03-15] MEDS: SEVELAMER CARBONATE 800 MG TABLET PO SCH ×3 (08:53→16:46)
[2019-03-15] MEDS: FAMOTIDINE 20MG TABLET PO SCH (08:53)
[2019-03-15] MEDS: LIDOCAINE 5% PATCH TOP SCH (08:54)
[2019-03-15] MEDS: ZINC SULFATE 220 MG ( 50 ) CAPSULE PO SCH (09:46)
[2019-03-15 13:21] VITALS: BP 112/53
[2019-03-15 16:45] VITALS: BP 123/58
[2019-03-15 20:00] VITALS: BP 125/62
[2019-03-15] MEDS: CEFAZOLIN 2,000 MG in DEXT 5% WATER 100 ML IV SCH (21:08)
[2019-03-15] MEDS: ATORVASTATIN CALCIUM 10MG TABLET PO SCH (21:11)
[2019-03-16] MEDS: ACETYLCYSTEINE 100MG/ML 10% VIAL 4ML INH SCH ×3 (01:16→15:15)
[2019-03-16] MEDS: CHLORPROMAZINE HCL 10 MG TABLET PO SCH ×3 (05:33→21:02)
[2019-03-16] MEDS: METOCLOPRAMIDE HCL 10MG/2ML VIAL IV SCH ×4 (05:33→23:12)
[2019-03-16] MEDS: AMIODARONE HCL 200 MG TABLET PO SCH ×3 (06:12→21:02)
[2019-03-16 07:57] LABS: CHLORIDE 98 mEq/L (98-107)
[2019-03-16 08:01] VITALS: BP 140/66
[2019-03-16 08:05] LABS: LDL CHOLESTEROL 42 mg/dL (5-100)
[2019-03-16 08:06] LABS: HDL CHOLESTEROL 28 mg/dL (40-59)
[2019-03-16 08:07] LABS: PHOSPHORUS 4.5 mg/dL (2.5-4.9); TOTAL IRON BINDING CAPACITY 463 ug/dL (250-450)
[2019-03-16] MEDS: ENOXAPARIN 30MG/0.3ML SYR SUBCUT SCH (08:09)
[2019-03-16] MEDS: LIDOCAINE 5% PATCH TOP SCH (08:09)
[2019-03-16] MEDS: ACETAMINOPHEN 325MG TABLET PO PRN (08:09)
[2019-03-16] MEDS: SEVELAMER CARBONATE 800 MG TABLET PO SCH ×3 (08:09→18:39)
[2019-03-16] MEDS: ASCORBIC ACID 500 MG TABLET PO SCH (08:10)
[2019-03-16] MEDS: MIDODRINE HCL 2.5MG TABLET PO SCH ×3 (08:10→18:38)
[2019-03-16] MEDS: ASPIRIN 325MG EC TABLET PO SCH (08:10)
[2019-03-16] MEDS: FAMOTIDINE 20MG TABLET PO SCH (08:10)
[2019-03-16] MEDS: GUAIFENESIN/DM 600MG/30MG ER TAB 12HR PO SCH ×2 (08:10→20:52)
[2019-03-16 08:16] LABS: HEMATOCRIT. 31.9 % (42.0-52.0); MEAN CORPUSCULAR HEMOGLOBIN 25.2 pg (28.0-32.0); MEAN CORPUSCULAR VOLUME 80.8 fL (80.0-94.0); MEAN PLATELET VOLUME 8.6 fl (7.4-10.4); PLATELET 660 x1000/uL (130-400); RED BLOOD CELL COUNT 3.95 mill/uL (4.7-6.1); RED CELL DISTRIBUTION WIDTH 16.5 % (11.6-14.6)
[2019-03-16 08:25] LABS: VITAMIN B12 SERUM >2000 pg/mL pg/mL (211-911)
[2019-03-16] MEDS: ZINC SULFATE 220 MG ( 50 ) CAPSULE PO SCH (09:11)
[2019-03-16] MEDS: IPRATROPIUM/ALBUTEROL 0.5-3(2.5)MG/3ML NEB HHN SCH ×4 (09:20→21:33)
[2019-03-16 13:07] LABS: FERRITIN 937 ng/mL (22-322)
[2019-03-16 13:08] LABS: PROSTRATE SPECIFIC AG TOTAL 1.32 ng/mL (0.0-4.0)
[2019-03-16 13:23] LABS: PLATELET ESTIMATE MARKEDLY INCREASED
[2019-03-16 20:00] VITALS: BP 125/52
[2019-03-16] MEDS: ATORVASTATIN CALCIUM 10MG TABLET PO SCH (20:52)
[2019-03-16] MEDS: EPOETIN ALFA 10000UNITS/ML VIAL SUBCUT SCH (20:52)
[2019-03-16] MEDS ORDERED: CEFAZOLIN 500MG in DEXTROSE 5% WATER 50ML IV SCH (21:00)
[2019-03-17] MEDS: IPRATROPIUM/ALBUTEROL 0.5-3(2.5)MG/3ML NEB HHN SCH ×6 (01:16→20:00)
[2019-03-17] MEDS: AMIODARONE HCL 200 MG TABLET PO SCH ×3 (05:33→21:49)
[2019-03-17] MEDS: METOCLOPRAMIDE HCL 10MG/2ML VIAL IV SCH ×3 (05:33→17:28)
[2019-03-17] MEDS: CHLORPROMAZINE HCL 10 MG TABLET PO SCH ×3 (05:34→21:49)
[2019-03-17 07:14] LABS: HEMATOCRIT. 28.4 % (42.0-52.0); HEMOGLOBIN. 8.7 g/dL (14.0-18.0); MEAN CORPUSCULAR HEMOGLOBIN 24.6 pg (28.0-32.0); MEAN CORPUSCULAR VOLUME 80.1 fL (80.0-94.0); PLATELET 751 x1000/uL (130-400); RED BLOOD CELL COUNT 3.55 mill/uL (4.7-6.1); RED CELL DISTRIBUTION WIDTH 16.3 % (11.6-14.6)
[2019-03-17 08:00] VITALS: BP 112/60
[2019-03-17] MEDS: ACETYLCYSTEINE 100MG/ML 10% VIAL 4ML INH SCH ×3 (08:04→17:17)
[2019-03-17 08:18] LABS: CREATINE KINASE 23 IU/L (39-308)
[2019-03-17] MEDS: FAMOTIDINE 20MG TABLET PO SCH (08:54)
[2019-03-17] MEDS: GUAIFENESIN/DM 600MG/30MG ER TAB 12HR PO SCH ×2 (08:54→21:49)
[2019-03-17] MEDS ORDERED: ASPIRIN/DIPYRIDAMOLE 25MG/200MG CAPSULE SA PO SCH (09:00)
[2019-03-17] MEDS: LIDOCAINE 5% PATCH TOP SCH (09:00)
[2019-03-17] MEDS: ENOXAPARIN 30MG/0.3ML SYR SUBCUT SCH (09:41)
[2019-03-17] MEDS: SEVELAMER CARBONATE 800 MG TABLET PO SCH ×3 (09:41→17:31)
[2019-03-17] MEDS: MIDODRINE HCL 2.5MG TABLET PO SCH ×3 (09:42→16:29)
[2019-03-17] MEDS: ASPIRIN/DIPYRIDAMOLE 25MG/200MG CAPSULE SA PO SCH ×2 (09:42→21:49)
[2019-03-17 20:00] VITALS: BP 107/56
[2019-03-17 20:12] LABS: PLATELET ESTIMATE INCREASED
[2019-03-17] MEDS ORDERED: CEFAZOLIN 500 MG in DEXTROSE 5% WATER 50 ML IV SCH (21:00)
[2019-03-17] MEDS: ATORVASTATIN CALCIUM 10MG TABLET PO SCH (21:49)
[2019-03-17] MEDS: CEFAZOLIN 2000MG in DEXTROSE 5% WATER 100ML IV SCH (21:55)
[2019-03-18] MEDS: METOCLOPRAMIDE HCL 10MG/2ML VIAL IV SCH ×4 (01:08→17:24)
[2019-03-18] MEDS: IPRATROPIUM/ALBUTEROL 0.5-3(2.5)MG/3ML NEB HHN SCH ×2 (04:00)
[2019-03-18] MEDS: CHLORPROMAZINE HCL 10 MG TABLET PO SCH ×3 (06:00→21:54)
[2019-03-18] MEDS: AMIODARONE HCL 200 MG TABLET PO SCH ×3 (06:34→21:44)
[2019-03-18 07:54] VITALS: BP 103/52
[2019-03-18] MEDS: ENOXAPARIN 30MG/0.3ML SYR SUBCUT SCH (08:20)
[2019-03-18] MEDS: SEVELAMER CARBONATE 800 MG TABLET PO SCH ×3 (08:21→16:31)
[2019-03-18] MEDS: ASPIRIN/DIPYRIDAMOLE 25MG/200MG CAPSULE SA PO SCH ×2 (08:21→21:43)
[2019-03-18] MEDS: MIDODRINE HCL 2.5MG TABLET PO SCH ×3 (08:22→16:31)
[2019-03-18] MEDS: FAMOTIDINE 20MG TABLET PO SCH (08:26)
[2019-03-18] MEDS: GUAIFENESIN/DM 600MG/30MG ER TAB 12HR PO SCH ×2 (08:26→21:00)
[2019-03-18] MEDS: LIDOCAINE 5% PATCH TOP SCH (08:26)
[2019-03-18 12:08] VITALS: BP 127/62
[2019-03-18 14:19] VITALS: BP 130/78
[2019-03-18 16:11] VITALS: BP 117/52
[2019-03-18 20:00] VITALS: BP 121/47
[2019-03-18] MEDS: EPOETIN ALFA 10000UNITS/ML VIAL SUBCUT SCH (21:43)
[2019-03-18] MEDS: ATORVASTATIN CALCIUM 10MG TABLET PO SCH (21:43)
[2019-03-18] MEDS: CEFAZOLIN 2000MG in DEXTROSE 5% WATER 100ML IV SCH (21:46)
[2019-03-19] MEDS: ACETYLCYSTEINE 100MG/ML 10% VIAL 4ML INH SCH (00:44)
[2019-03-19] MEDS: IPRATROPIUM/ALBUTEROL 0.5-3(2.5)MG/3ML NEB HHN SCH ×4 (03:56→21:08)
[2019-03-19] MEDS: AMIODARONE HCL 200 MG TABLET PO SCH ×3 (05:53→21:10)
[2019-03-19] MEDS: METOCLOPRAMIDE HCL 10MG/2ML VIAL IV SCH ×5 (05:53→23:44)
[2019-03-19] MEDS: CHLORPROMAZINE HCL 10 MG TABLET PO SCH ×3 (05:53→21:10)
[2019-03-19 08:08] VITALS: BP 137/64
[2019-03-19] MEDS: LIDOCAINE 5% PATCH TOP SCH ×2 (09:00→09:16)
[2019-03-19] MEDS: GUAIFENESIN/DM 600MG/30MG ER TAB 12HR PO SCH ×3 (09:00→21:10)
[2019-03-19] MEDS: FAMOTIDINE 20MG TABLET PO SCH ×2 (09:00→09:13)
[2019-03-19] MEDS: SEVELAMER CARBONATE 800 MG TABLET PO SCH ×3 (09:12→16:49)
[2019-03-19] MEDS: ENOXAPARIN 30MG/0.3ML SYR SUBCUT SCH (09:12)
[2019-03-19] MEDS: ASPIRIN/DIPYRIDAMOLE 25MG/200MG CAPSULE SA PO SCH ×2 (09:13→21:10)
[2019-03-19] MEDS: MIDODRINE HCL 2.5MG TABLET PO SCH ×3 (09:13→16:50)
[2019-03-19] MEDS: FOLIC ACID/VITAMIN B COMP W-C TABLET PO SCH (09:15)
[2019-03-19] MEDS: FOLIC ACID 1MG TABLET PO SCH (09:15)
[2019-03-19 12:23] VITALS: BP 152/81
[2019-03-19 16:48] VITALS: BP 141/62
[2019-03-19 20:00] VITALS: BP 134/60
[2019-03-19] MEDS: CEFAZOLIN 2000MG in DEXTROSE 5% WATER 100ML IV SCH (21:10)
[2019-03-19] MEDS: ATORVASTATIN CALCIUM 10MG TABLET PO SCH (21:11)
[2019-03-19] MEDS: CINACALCET HCL 30MG TABLET PO SCH (23:43)
[2019-03-20] MEDS: IPRATROPIUM/ALBUTEROL 0.5-3(2.5)MG/3ML NEB HHN SCH ×5 (01:25→16:00)
[2019-03-20 04:07] LABS: 25-HYDROXY VITAMIN D3 10 ng/mL (.)
[2019-03-20] MEDS: METOCLOPRAMIDE HCL 10MG/2ML VIAL IV SCH ×4 (06:20→23:54)
[2019-03-20] MEDS: AMIODARONE HCL 200 MG TABLET PO SCH ×3 (06:20→22:11)
[2019-03-20] MEDS: CHLORPROMAZINE HCL 10 MG TABLET PO SCH ×3 (06:20→22:10)
[2019-03-20 08:00] VITALS: BP 137/64
[2019-03-20] MEDS: FAMOTIDINE 20MG TABLET PO SCH (09:00)
[2019-03-20] MEDS: GUAIFENESIN/DM 600MG/30MG ER TAB 12HR PO SCH ×3 (09:00→22:10)
[2019-03-20] MEDS: LIDOCAINE 5% PATCH TOP SCH (09:00)
[2019-03-20] MEDS: ENOXAPARIN 30MG/0.3ML SYR SUBCUT SCH (10:14)
[2019-03-20] MEDS: ASPIRIN/DIPYRIDAMOLE 25MG/200MG CAPSULE SA PO SCH ×2 (10:14→22:10)
[2019-03-20] MEDS: FOLIC ACID/VITAMIN B COMP W-C TABLET PO SCH (10:14)
[2019-03-20] MEDS: FOLIC ACID 1MG TABLET PO SCH (10:14)
[2019-03-20] MEDS: MIDODRINE HCL 2.5MG TABLET PO SCH ×3 (10:15→18:39)
[2019-03-20] MEDS: SEVELAMER CARBONATE 800 MG TABLET PO SCH ×3 (10:15→18:40)
[2019-03-20] MEDS ORDERED: ERGOCALCIFEROL 50000UNITS CAPSULE PO SCH (15:00)
[2019-03-20] MEDS: CINACALCET HCL 30MG TABLET PO SCH (18:43)
[2019-03-20] MEDS ORDERED: NON FORMULARY PATIENT HOME MED XX SCH (19:15)
[2019-03-20 20:00] VITALS: BP 109/49
[2019-03-20] MEDS ORDERED: PARICALCITOL 2 MCG/ML VIAL IV NR (20:30)
[2019-03-20] MEDS ORDERED: PARICALCITOL 5 MCG/ML 1ML IV NR (20:30)
[2019-03-20] MEDS ORDERED: EPOETIN ALFA 4000UNITS/ML VIAL SUBCUT NR (21:00)
[2019-03-20] MEDS: ATORVASTATIN CALCIUM 10MG TABLET PO SCH ×2 (21:00→22:10)
[2019-03-20] MEDS: CEFAZOLIN 2000MG in DEXTROSE 5% WATER 100ML IV SCH (22:10)
[2019-03-21] MEDS: IPRATROPIUM/ALBUTEROL 0.5-3(2.5)MG/3ML NEB HHN SCH ×6 (00:35→19:46)
[2019-03-21] MEDS: CHLORPROMAZINE HCL 10 MG TABLET PO SCH ×4 (06:00→21:39)
[2019-03-21] MEDS: METOCLOPRAMIDE HCL 10MG/2ML VIAL IV SCH ×4 (06:43→23:15)
[2019-03-21] MEDS: AMIODARONE HCL 200 MG TABLET PO SCH ×3 (06:43→21:29)
[2019-03-21 08:00] VITALS: BP 111/54
[2019-03-21] MEDS: SEVELAMER CARBONATE 800 MG TABLET PO SCH ×3 (08:46→17:38)
[2019-03-21] MEDS: FOLIC ACID 1MG TABLET PO SCH (08:48)
[2019-03-21] MEDS: GUAIFENESIN/DM 600MG/30MG ER TAB 12HR PO SCH ×3 (08:48→21:00)
[2019-03-21] MEDS: ASPIRIN/DIPYRIDAMOLE 25MG/200MG CAPSULE SA PO SCH ×2 (08:48→21:29)
[2019-03-21] MEDS: MIDODRINE HCL 2.5MG TABLET PO SCH ×3 (08:49→17:38)
[2019-03-21] MEDS: FOLIC ACID/VITAMIN B COMP W-C TABLET PO SCH (08:49)
[2019-03-21] MEDS: ENOXAPARIN 30MG/0.3ML SYR SUBCUT SCH (08:50)
[2019-03-21] MEDS: FAMOTIDINE 20MG TABLET PO SCH (08:52)
[2019-03-21] MEDS: LIDOCAINE 5% PATCH TOP SCH (08:53)
[2019-03-21] MEDS: CINACALCET HCL 30MG TABLET PO SCH (19:00)
[2019-03-21 20:00] VITALS: BP 114/61
[2019-03-21] MEDS: ATORVASTATIN CALCIUM 10MG TABLET PO SCH (21:00)
[2019-03-21] MEDS: CEFAZOLIN 2000MG in DEXTROSE 5% WATER 100ML IV SCH (21:29)
[2019-03-22] MEDS: IPRATROPIUM/ALBUTEROL 0.5-3(2.5)MG/3ML NEB HHN SCH ×6 (04:00→20:00)
[2019-03-22] MEDS: METOCLOPRAMIDE HCL 10MG/2ML VIAL IV SCH ×4 (05:55→23:21)
[2019-03-22] MEDS: CHLORPROMAZINE HCL 10 MG TABLET PO SCH ×3 (05:56→21:07)
[2019-03-22] MEDS: AMIODARONE HCL 200 MG TABLET PO SCH ×3 (05:56→21:07)
[2019-03-22 06:27] LABS: MEAN CORPUSCULAR HEMOGLOBIN 24.5 pg (28.0-32.0); MEAN CORPUSCULAR VOLUME 80.3 fL (80.0-94.0); MEAN PLATELET VOLUME 7.8 fl (7.4-10.4); PLATELET 655 x1000/uL (130-400); RED BLOOD CELL COUNT 2.75 mill/uL (4.7-6.1); RED CELL DISTRIBUTION WIDTH 16.6 % (11.6-14.6)
[2019-03-22 07:59] LABS: HEMATOCRIT. 22.1 % (42.0-52.0); HEMOGLOBIN. 6.7 g/dL (14.0-18.0)
[2019-03-22 08:13] VITALS: BP 114/63
[2019-03-22] MEDS: ASPIRIN/DIPYRIDAMOLE 25MG/200MG CAPSULE SA PO SCH ×2 (08:56→20:31)
[2019-03-22] MEDS: FOLIC ACID/VITAMIN B COMP W-C TABLET PO SCH (08:56)
[2019-03-22] MEDS: MIDODRINE HCL 2.5MG TABLET PO SCH ×3 (08:56→16:21)
[2019-03-22] MEDS: FOLIC ACID 1MG TABLET PO SCH (08:57)
[2019-03-22] MEDS: ENOXAPARIN 30MG/0.3ML SYR SUBCUT SCH (08:57)
[2019-03-22] MEDS: GUAIFENESIN/DM 600MG/30MG ER TAB 12HR PO SCH ×2 (08:58→20:31)
[2019-03-22] MEDS: FAMOTIDINE 20MG TABLET PO SCH (08:58)
[2019-03-22] MEDS: LIDOCAINE 5% PATCH TOP SCH (09:00)
[2019-03-22] MEDS: SEVELAMER CARBONATE 800 MG TABLET PO SCH ×3 (10:04→16:20)
[2019-03-22 12:32] VITALS: BP 129/61
[2019-03-22 15:17] LABS: PLATELET ESTIMATE INCREASED
[2019-03-22] MEDS: CINACALCET HCL 30MG TABLET PO SCH (18:54)
[2019-03-22 20:00] VITALS: BP 104/50
[2019-03-22] MEDS: ATORVASTATIN CALCIUM 10MG TABLET PO SCH (20:31)
[2019-03-22] MEDS: CEFAZOLIN 2000MG in DEXTROSE 5% WATER 100ML IV SCH (20:31)
[2019-03-23] MEDS: AMIODARONE HCL 200 MG TABLET PO SCH ×3 (05:48→21:37)
[2019-03-23] MEDS: METOCLOPRAMIDE HCL 10MG/2ML VIAL IV SCH ×3 (05:48→16:42)
[2019-03-23] MEDS: CHLORPROMAZINE HCL 10 MG TABLET PO SCH ×3 (05:49→21:37)
[2019-03-23 07:11] LABS: HEMATOCRIT. 22.9 % (42.0-52.0); HEMOGLOBIN. 7.2 g/dL (14.0-18.0); MEAN CORPUSCULAR HEMOGLOBIN 24.9 pg (28.0-32.0); MEAN CORPUSCULAR VOLUME 79.6 fL (80.0-94.0); MEAN PLATELET VOLUME 7.7 fl (7.4-10.4); PLATELET 656 x1000/uL (130-400); RED BLOOD CELL COUNT 2.88 mill/uL (4.7-6.1)
[2019-03-23] MEDS: IPRATROPIUM/ALBUTEROL 0.5-3(2.5)MG/3ML NEB HHN SCH ×5 (07:41→21:21)
[2019-03-23 07:52] VITALS: BP 127/67
[2019-03-23] MEDS: FAMOTIDINE 20MG TABLET PO SCH (07:53)
[2019-03-23] MEDS: GUAIFENESIN/DM 600MG/30MG ER TAB 12HR PO SCH ×2 (07:53→21:00)
[2019-03-23] MEDS: LIDOCAINE 5% PATCH TOP SCH (07:53)
[2019-03-23] MEDS: ASPIRIN/DIPYRIDAMOLE 25MG/200MG CAPSULE SA PO SCH ×2 (08:30→21:37)
[2019-03-23] MEDS: FOLIC ACID/VITAMIN B COMP W-C TABLET PO SCH (08:30)
[2019-03-23] MEDS: MIDODRINE HCL 2.5MG TABLET PO SCH ×3 (08:30→16:45)
[2019-03-23] MEDS: FOLIC ACID 1MG TABLET PO SCH (08:30)
[2019-03-23] MEDS: SEVELAMER CARBONATE 800 MG TABLET PO SCH ×3 (11:07→21:36)
[2019-03-23] MEDS: TRAMADOL 50MG TABLET PO PRN (14:40)
[2019-03-23 16:35] VITALS: BP 115/56
[2019-03-23 16:39] VITALS: BP 125/40
[2019-03-23 16:50] VITALS: BP 112/55
[2019-03-23 17:05] VITALS: BP 86/66
[2019-03-23 17:53] LABS: PLATELET ESTIMATE INCREASED
[2019-03-23 20:00] VITALS: BP 126/55
[2019-03-23] MEDS ORDERED: EPOETIN ALFA 4000UNITS/ML VIAL SUBCUT SCH (21:00)
[2019-03-23] MEDS: SUCRALFATE 1 G/10 ML UDC PO SCH (21:00)
[2019-03-23] MEDS: CINACALCET HCL 30MG TABLET PO SCH (21:36)
[2019-03-23] MEDS: ATORVASTATIN CALCIUM 10MG TABLET PO SCH (21:37)
[2019-03-23] MEDS: CEFAZOLIN 2000MG in DEXTROSE 5% WATER 100ML IV SCH (21:59)
[2019-03-23] MEDS: EPOETIN ALFA 10000UNITS/ML VIAL SUBCUT SCH (22:00)
[2019-03-24] MEDS: IPRATROPIUM/ALBUTEROL 0.5-3(2.5)MG/3ML NEB HHN SCH ×5 (01:36→20:00)
[2019-03-24] MEDS: METOCLOPRAMIDE HCL 10MG/2ML VIAL IV SCH ×4 (06:00→17:03)
[2019-03-24] MEDS: AMIODARONE HCL 200 MG TABLET PO SCH ×3 (06:10→21:58)
[2019-03-24] MEDS: CHLORPROMAZINE HCL 10 MG TABLET PO SCH ×3 (06:10→22:00)
[2019-03-24] MEDS: SUCRALFATE 1 G/10 ML UDC PO SCH ×4 (06:10→21:15)
[2019-03-24 06:43] LABS: HEMATOCRIT 24.4 % (42.0-52.0); HEMOGLOBIN 7.7 g/dL (14.0-18.0)
[2019-03-24 08:00] VITALS: BP 92/56
[2019-03-24] MEDS: TRAMADOL 50MG TABLET PO PRN (08:21)
[2019-03-24] MEDS: SEVELAMER CARBONATE 800 MG TABLET PO SCH ×3 (08:46→17:49)
[2019-03-24] MEDS: FOLIC ACID 1MG TABLET PO SCH (08:47)
[2019-03-24] MEDS: FOLIC ACID/VITAMIN B COMP W-C TABLET PO SCH (08:47)
[2019-03-24] MEDS: MIDODRINE HCL 2.5MG TABLET PO SCH ×3 (08:47→17:50)
[2019-03-24] MEDS: LIDOCAINE 5% PATCH TOP SCH (08:48)
[2019-03-24] MEDS: GUAIFENESIN/DM 600MG/30MG ER TAB 12HR PO SCH ×2 (09:00→21:15)
[2019-03-24] MEDS: ASPIRIN/DIPYRIDAMOLE 25MG/200MG CAPSULE SA PO SCH ×2 (09:00→21:15)
[2019-03-24] MEDS: FAMOTIDINE 20MG TABLET PO SCH (09:00)
[2019-03-24] MEDS ORDERED: LIDOCAINE HCL 1% 20ML VIAL (Pyxis) INJ INFIL STA (09:44)
[2019-03-24] MEDS ORDERED: LIDOCAINE HCL 1% 20ML VIAL (Pyxis) INJ INFIL NR (10:15)
[2019-03-24 20:00] VITALS: BP 112/46
[2019-03-24 21:02] VITALS: BP 112/46
[2019-03-24] MEDS: CEFAZOLIN 2000MG in DEXTROSE 5% WATER 100ML IV SCH (21:12)
[2019-03-24] MEDS: CINACALCET HCL 30MG TABLET PO SCH (21:15)
[2019-03-24] MEDS: ATORVASTATIN CALCIUM 10MG TABLET PO SCH (21:26)
[2019-03-25] MEDS: METOCLOPRAMIDE HCL 10MG/2ML VIAL IV SCH ×5 (00:32→23:09)
[2019-03-25] MEDS: IPRATROPIUM/ALBUTEROL 0.5-3(2.5)MG/3ML NEB HHN SCH ×3 (00:40→20:00)
[2019-03-25] MEDS: SUCRALFATE 1 G/10 ML UDC PO SCH (05:49)
[2019-03-25] MEDS: CHLORPROMAZINE HCL 10 MG TABLET PO SCH ×3 (05:50→21:50)
[2019-03-25] MEDS: AMIODARONE HCL 200 MG TABLET PO SCH ×3 (05:50→21:51)
[2019-03-25 07:38] VITALS: BP 112/64
[2019-03-25] MEDS: MIDODRINE HCL 2.5MG TABLET PO SCH ×3 (08:36→16:15)
[2019-03-25] MEDS: ASPIRIN/DIPYRIDAMOLE 25MG/200MG CAPSULE SA PO SCH ×2 (08:36→21:57)
[2019-03-25] MEDS: SEVELAMER CARBONATE 800 MG TABLET PO SCH ×3 (08:36→16:14)
[2019-03-25] MEDS: FOLIC ACID/VITAMIN B COMP W-C TABLET PO SCH (08:37)
[2019-03-25] MEDS: FOLIC ACID 1MG TABLET PO SCH (08:38)
[2019-03-25] MEDS: GUAIFENESIN/DM 600MG/30MG ER TAB 12HR PO SCH ×3 (08:47→21:50)
[2019-03-25] MEDS: FAMOTIDINE 20MG TABLET PO SCH (08:47)
[2019-03-25] MEDS: LIDOCAINE 5% PATCH TOP SCH (08:47)
[2019-03-25 11:43] VITALS: BP 136/63
[2019-03-25 16:02] VITALS: BP 130/52
[2019-03-25] MEDS: TRAMADOL 50MG TABLET PO PRN (16:15)
[2019-03-25 17:54] LABS: HEMATOCRIT 23.3 % (42.0-52.0); HEMOGLOBIN 7.2 g/dL (14.0-18.0); MEAN CORPUSCULAR HEMOGLOBIN 24.6 pg (28.0-32.0); MEAN CORPUSCULAR VOLUME 79.9 fL (80.0-94.0); PLATELET 524 x1000/uL (130-400); RED BLOOD CELL COUNT 2.92 mill/uL (4.7-6.1)
[2019-03-25] MEDS: CINACALCET HCL 30MG TABLET PO SCH (18:32)
[2019-03-25 20:00] VITALS: BP 117/60
[2019-03-25] MEDS: OMEPRAZOLE 20MG CAPSULE EXTENDED RELEASE PO SCH ×2 (21:00→21:51)
[2019-03-25] MEDS ORDERED: PARICALCITOL 5 MCG/ML 1ML IV SCH (21:00)
[2019-03-25] MEDS: CEFAZOLIN 2000MG in DEXTROSE 5% WATER 100ML IV SCH (21:28)
[2019-03-25] MEDS: EPOETIN ALFA 10000UNITS/ML VIAL SUBCUT SCH (21:50)
[2019-03-25] MEDS: ATORVASTATIN CALCIUM 10MG TABLET PO SCH (21:51)
[2019-03-26] MEDS: CHLORPROMAZINE HCL 10 MG TABLET PO SCH ×2 (05:24→13:15)
[2019-03-26] MEDS: AMIODARONE HCL 200 MG TABLET PO SCH ×2 (05:24→13:13)
[2019-03-26] MEDS: METOCLOPRAMIDE HCL 10MG/2ML VIAL IV SCH ×2 (05:24→12:00)
[2019-03-26] MEDS: IPRATROPIUM/ALBUTEROL 0.5-3(2.5)MG/3ML NEB HHN SCH ×2 (07:42→12:13)
[2019-03-26 07:56] VITALS: BP 114/59
[2019-03-26] MEDS: OMEPRAZOLE 20MG CAPSULE EXTENDED RELEASE PO SCH (08:00)
[2019-03-26] MEDS: SEVELAMER CARBONATE 800 MG TABLET PO SCH ×2 (08:58→13:13)
[2019-03-26] MEDS: FOLIC ACID 1MG TABLET PO SCH (08:58)
[2019-03-26] MEDS: FOLIC ACID/VITAMIN B COMP W-C TABLET PO SCH (08:59)
[2019-03-26] MEDS: MIDODRINE HCL 2.5MG TABLET PO SCH ×2 (08:59→12:41)
[2019-03-26] MEDS: ASPIRIN/DIPYRIDAMOLE 25MG/200MG CAPSULE SA PO SCH (08:59)
[2019-03-26] MEDS: GUAIFENESIN/DM 600MG/30MG ER TAB 12HR PO SCH (09:00)
[2019-03-26] MEDS: LIDOCAINE 5% PATCH TOP SCH (09:00)
[2019-03-26 09:56] VITALS: BP 114/59
[2019-03-26 15:28] LABS: HEMATOCRIT. 27.9 % (42.0-52.0); HEMOGLOBIN. 8.4 g/dL (14.0-18.0); MEAN CORPUSCULAR VOLUME 82.6 fL (80.0-94.0); MEAN PLATELET VOLUME 7.7 fl (7.4-10.4); PLATELET 514 x1000/uL (130-400); RED BLOOD CELL COUNT 3.38 mill/uL (4.7-6.1)
[2019-03-26 16:39] LABS: PLATELET ESTIMATE INCREASED
== END 2019-03-26 16:00 | disposition home health service (06) | DRG 91 ==
PROVIDERS: ADMIT Physical Medicine & Rehabilitation Spinal Cord Injury Medicine; ATTEND Internal Medicine
DX: G92 Toxic encephalopathy (principal); J18.9 Pneumonia, unspecified organism; A41.01 Sepsis due to Methicillin susceptible Staphylococcus aureus; R65.21 Severe sepsis with septic shock; N18.6 End stage renal disease; R47.01 Aphasia; E44.0 Moderate protein-calorie malnutrition; E87.1 Hypo-osmolality and hyponatremia; I12.0 Hypertensive chronic kidney disease with stage 5 chronic kidney disease or end stage renal disease; J44.0 Chronic obstructive pulmonary disease with (acute) lower respiratory infection; I69.351 Hemiplegia and hemiparesis following cerebral infarction affecting right dominant side; R13.10 Dysphagia, unspecified; R53.81 Other malaise; M75.42 Impingement syndrome of left shoulder; D63.8 Anemia in other chronic diseases classified elsewhere; I95.1 Orthostatic hypotension; E78.00 Pure hypercholesterolemia, unspecified; M19.90 Unspecified osteoarthritis, unspecified site; I51.7 Cardiomegaly; Z99.2 Dependence on renal dialysis; Z83.2 Family history of diseases of the blood and blood-forming organs and certain disorders involving the immune mechanism
CPT/HCPCS: 36415; 72050; 73030; 76700; 80048; 80053; 80061; 82247; 82248; 82270; 82306; 82550; 82607; 82728; 82746; 82962; 83540; 83550; 83735; 84100; 84134; 84153; 84443; 85014; 85018; 85025; 85027; 86850; 86900; 86920; 92523; 93970; 93971; 97110; 97112; 97116; 97162; 97166; 97530; 97535; J0690; J0885; J1650; J2501; J2765; J3490; J7040; J7060; J7608; J7620; P9016; Q0161; G0103

== ENCOUNTER 2019-04-01 11:24 | Inpatient (IN) | payer MEDICARE, MEDICAID ==
[~2019-04-01] VITALS: Ht 182.9 cm; Wt 67.1 kg
[2019-04-01] MEDS ORDERED: BUPIVACAINE HCL 0.5% (5MG/ML) 50ML ONE (12:12)
[2019-04-01] MEDS ORDERED: LIDOCAINE HCL 1% 20ML VIAL (Pyxis) INJ ONE (12:12)
[2019-04-01] MEDS ORDERED: BACITRACIN 15GM TUBE TOP ONE (12:12)
[2019-04-01] MEDS ORDERED: THROMBIN (BOVINE) 5000 UNITS/VIAL TOP ONE ×2 (12:13→14:00)
[2019-04-01] MEDS ORDERED: BACITRACIN 50,000 UNITS/VIAL ONE (12:13)
[2019-04-01] MEDS ORDERED: BUPIVACAINE HCL/PF 0.5% (5MG/ML) 10ML ONE (12:13)
[2019-04-01] MEDS ORDERED: NORMAL SALINE 0.9% 10 ML SYR ONE (12:14)
[2019-04-01] MEDS ORDERED: HEPARIN SODIUM 1,000 UNIT/1ML VIAL IV ONE (12:14)
[2019-04-01 12:49] LABS: HEMATOCRIT. 24.3 % (42.0-52.0); HEMOGLOBIN. 7.5 g/dL (14.0-18.0); MEAN CORPUSCULAR HEMOGLOBIN 24.9 pg (28.0-32.0); MEAN PLATELET VOLUME 7.5 fl (7.4-10.4); PLATELET 424 x1000/uL (130-400); RED CELL DISTRIBUTION WIDTH 17.3 % (11.6-14.6)
[2019-04-01 12:51] LABS: CHLORIDE 97 mEq/L (98-107)
[2019-04-01 12:52] LABS: INR 1.2; PROTHROMBIN TIME 12.7 sec (9.6-11.0)
[2019-04-01] MEDS ORDERED: ROPIVACAINE HCL 10MG/ML 20 ML VIAL EPI ONE (13:25)
[2019-04-01] MEDS ORDERED: FENTANYL CITRATE/PF 50MCG/ML 2ML VIAL ONE (13:25)
[2019-04-01] MEDS ORDERED: MIDAZOLAM HCL 2 MG/2 ML VIAL ONE ×2 (13:26→13:49)
[2019-04-01] MEDS ORDERED: ROCURONIUM BROMIDE 10MG/ML VIAL 5ML IV ONE (13:26)
[2019-04-01] MEDS ORDERED: PROPOFOL 200MG/20ML VIAL IV ONE (13:26)
[2019-04-01] MEDS ORDERED: NEOSTIGMINE METHYLSULFATE 1MG/ML 10 ML VIAL ONE (13:26)
[2019-04-01] MEDS ORDERED: GLYCOPYRROLATE 0.2 MG/ML 2ML VIAL ONE (13:26)
[2019-04-01] MEDS ORDERED: CEFAZOLIN SODIUM 1000MG/VIAL ONE (13:28)
[2019-04-01] MEDS ORDERED: SODIUM CHLORIDE 0.9% 10ML VIAL ONE (13:28)
[2019-04-01] MEDS ORDERED: PHENYLEPHRINE HCL 10 MG/ML 1ML (IV VIAL) IV ONE (13:28)
[2019-04-01] MEDS ORDERED: EPHEDRINE SULFATE 50MG/ML VIAL ONE (13:28)
[2019-04-01] MEDS ORDERED: SUCCINYLCHOLINE CHLORIDE 200MG/10ML IV ONE (13:28)
[2019-04-01] MEDS ORDERED: ONDANSETRON HCL 4MG/2ML INJ ONE (13:28)
[2019-04-01] MEDS ORDERED: LIDOCAINE HCL/PF 1% 10 MG/ML 5ML VIAL ONE (13:28)
[2019-04-01] MEDS ORDERED: METOCLOPRAMIDE HCL 10MG/2ML VIAL ONE (13:28)
[2019-04-01] MEDS ORDERED: MORPHINE SULFATE 2 MG/ML CPJ (NOT FOR IM USE) IV PRN (13:30)
[2019-04-01 14:36] LABS: PLATELET ESTIMATE INCREASED
[2019-04-01 17:00] VITALS: BP_SYST 108; BP_SYST 99; BP_DIAS 40; BP_DIAS 53
[2019-04-01] MEDS ORDERED: ONDANSETRON HCL 4MG/2ML INJ IV PRN (17:15)
[2019-04-01] MEDS ORDERED: CLONIDINE 0.1MG TABLET PO PRN (17:15)
[2019-04-01] MEDS ORDERED: HYDROCODONE/ACETAMINOPHEN 5/325MG TABLET PO PRN (17:15)
[2019-04-01] MEDS ORDERED: AMIO150P5 IV (17:42)
[2019-04-01] MEDS ORDERED: MIDO10TA PO (17:42)
[2019-04-01] MEDS ORDERED: ATOR10TA MT (17:42)
[2019-04-01] MEDS: SEVELAMER CARBONATE 800 MG TABLET PO SCH (18:23)
[2019-04-01] MEDS ORDERED: CINACALCET HCL 30MG TABLET PO SCH ×2 (19:00→20:00)
[2019-04-01 20:00] VITALS: BP 93/50
[2019-04-01] MEDS ORDERED: ATORVASTATIN CALCIUM 10MG TABLET PO SCH (21:00)
[2019-04-01] MEDS: MIDODRINE HCL 5MG TABLET PO SCH (21:36)
[2019-04-01] MEDS: ASPIRIN 81MG EC TABLET PO SCH (21:36)
[2019-04-02] VITALS: BP 90/55
[2019-04-02 04:00] VITALS: BP 92/46
[2019-04-02 07:28] LABS: CHLORIDE 97 mEq/L (98-107)
[2019-04-02 07:31] LABS: HEMATOCRIT. 23.5 % (42.0-52.0); HEMOGLOBIN. 7.4 g/dL (14.0-18.0); MEAN CORPUSCULAR HEMOGLOBIN 25.3 pg (28.0-32.0); MEAN CORPUSCULAR VOLUME 80.7 fL (80.0-94.0); MEAN PLATELET VOLUME 7.9 fl (7.4-10.4); PLATELET 380 x1000/uL (130-400); RED BLOOD CELL COUNT 2.91 mill/uL (4.7-6.1); RED CELL DISTRIBUTION WIDTH 16.9 % (11.6-14.6)
[2019-04-02 08:00] VITALS: BP 114/46
[2019-04-02] MEDS ORDERED: SEVELAMER CARBONATE 800 MG TABLET PO SCH (09:00)
[2019-04-02] MEDS: ASPIRIN 81MG EC TABLET PO SCH (09:58)
[2019-04-02] MEDS: MIDODRINE HCL 5MG TABLET PO SCH ×2 (09:59→14:13)
[2019-04-02] MEDS: SEVELAMER CARBONATE 800 MG TABLET PO SCH ×2 (10:00→14:13)
[2019-04-02 12:00] VITALS: BP 99/50
[2019-04-02 15:28] VITALS: BP 99/50
[2019-04-02 16:00] VITALS: BP 104/39
[2019-04-02 17:46] LABS: PLATELET ESTIMATE NORMAL
[2019-04-02] MEDS ORDERED: CEFAZOLIN 2,000 MG in DEXT 5% WATER 100 ML IV SCH (21:00)
== END 2019-04-02 15:58 | disposition home or self-care (01) | DRG 252 ==
LOC: ER 11:24 → EDBEDREQTM 12:22 → OR 13:26 → 6EST 13:27
PROVIDERS: ADMIT Hospitalist; ATTEND Hospitalist
PROC: 03PY0DZ Removal of Intraluminal Device from Upper Artery, Open Approach (ICD-10-PCS; 2019-04-01)
PROC: 5A1D70Z Performance of Urinary Filtration, Intermittent, Less than 6 Hours Per Day (ICD-10-PCS; principal; 2019-04-02)
DX: T82.318A Breakdown (mechanical) of other vascular grafts, initial encounter (principal); I50.33 Acute on chronic diastolic (congestive) heart failure; N18.6 End stage renal disease; I69.351 Hemiplegia and hemiparesis following cerebral infarction affecting right dominant side; I13.2 Hypertensive heart and chronic kidney disease with heart failure and with stage 5 chronic kidney disease, or end stage renal disease; D62 Acute posthemorrhagic anemia; N25.81 Secondary hyperparathyroidism of renal origin; E44.0 Moderate protein-calorie malnutrition; D63.1 Anemia in chronic kidney disease; Y84.1 Kidney dialysis as the cause of abnormal reaction of the patient, or of later complication, without mention of misadventure at the time of the procedure; I69.320 Aphasia following cerebral infarction; Y92.89 Other specified places as the place of occurrence of the external cause; Z82.49 Family history of ischemic heart disease and other diseases of the circulatory system; Z86.19 Personal history of other infectious and parasitic diseases; Z99.2 Dependence on renal dialysis; Z99.3 Dependence on wheelchair; Z87.01 Personal history of pneumonia (recurrent); Z68.20 Body mass index [BMI] 20.0-20.9, adult
CPT/HCPCS: 36415; 71045; 80053; 85025; 86850; 86900; 86920; 88300; 88304; 93005; 99285; C1768; C1884; J0330; J0690; J1644; J2250; J2370; J2405; J2704; J2710; J2765; J2795; J3010; J3490

== ENCOUNTER 2019-04-06 09:54 | Emergency (ER) | payer MEDICARE, MEDICAID ==
[~2019-04-06] VITALS: Ht 177.8 cm; Wt 90.0 kg
[~2019-04-06 09:54] MED LIST changes: +AMIO150P5 IV; +ATOR10TA MT; +MIDO10TA PO
[2019-04-06 11:53] LABS: HEMATOCRIT. 26.5 % (42.0-52.0); MEAN CORPUSCULAR HEMOGLOBIN 24.9 pg (28.0-32.0); MEAN CORPUSCULAR VOLUME 82.2 fL (80.0-94.0); MEAN PLATELET VOLUME 8.2 fl (7.4-10.4); PLATELET 427 x1000/uL (130-400); RED BLOOD CELL COUNT 3.23 mill/uL (4.7-6.1); RED CELL DISTRIBUTION WIDTH 16.5 % (11.6-14.6)
[2019-04-06 11:56] LABS: INR 1.1; PROTHROMBIN TIME 12.4 sec (9.6-11.0)
[2019-04-06 11:57] LABS: CHLORIDE 99 mEq/L (98-107)
[2019-04-06 12:07] VITALS: BP 125/36
[2019-04-06] MEDS ORDERED: LIDOCAINE HCL 1% 20ML VIAL (Pyxis) INJ ONE (12:40)
[2019-04-06] MEDS ORDERED: PAPAVERINE HCL 30 MG/ML 2ML IV ONE (12:40)
[2019-04-06] MEDS ORDERED: BACITRACIN 15GM TUBE TOP ONE (12:40)
[2019-04-06] MEDS ORDERED: BUPIVACAINE HCL/PF 0.5% (5MG/ML) 10ML ONE (12:41)
[2019-04-06] MEDS ORDERED: HEPARIN SODIUM 1,000 UNIT/1ML VIAL IV ONE (12:41)
[2019-04-06] MEDS ORDERED: THROMBIN (BOVINE) 5000 UNITS/VIAL TOP ONE (12:41)
[2019-04-06] MEDS ORDERED: BACITRACIN 50,000 UNITS/VIAL ONE (12:41)
[2019-04-06 12:49] LABS: PLATELET ESTIMATE INCREASED
[2019-04-06] MEDS ORDERED: HYDROCODONE/ACETAMINOPHEN 5/325MG TABLET PO PRN (13:00)
[2019-04-06] MEDS ORDERED: ROCURONIUM BROMIDE 10MG/ML VIAL 5ML IV ONE ×2 (13:22→13:26)
[2019-04-06] MEDS ORDERED: MIDAZOLAM HCL 2 MG/2 ML VIAL ONE (13:22)
[2019-04-06] MEDS ORDERED: FENTANYL CITRATE/PF 50MCG/ML 2ML VIAL ONE (13:22)
[2019-04-06] MEDS ORDERED: PHENYLEPHRINE HCL 10 MG/ML 1ML (IV VIAL) IV ONE (13:29)
[2019-04-06] MEDS ORDERED: CEFAZOLIN SODIUM 1000MG/VIAL ONE ×2 (13:46→14:00)
[2019-04-06] MEDS ORDERED: SODIUM CHLORIDE 0.9% 10ML VIAL ONE ×4 (13:46→14:01)
[2019-04-06] MEDS ORDERED: EPHEDRINE SULFATE 50MG/ML VIAL ONE (13:52)
[2019-04-06] MEDS ORDERED: PROTAMINE SULFATE 10MG/ML VIAL 5ML IV ONE (14:45)
[2019-04-06] MEDS ORDERED: ONDANSETRON HCL 4MG/2ML INJ ONE (15:01)
[2019-04-06] MEDS ORDERED: DEXAMETHASONE 4MG/ML 1ML VIAL ONE (15:03)
[2019-04-06] MEDS ORDERED: HYDROMORPHONE HCL/PF 2MG/ML CPJ IV PRN (15:30)
== END 2019-04-06 17:32 | disposition home or self-care (01) ==
LOC: ER 09:54 → CANRESERV 14:57 → ENRESERV 14:57 → ER 17:32 → CANBEDREQ 04-07 06:45
DX: T82.838A Hemorrhage due to vascular prosthetic devices, implants and grafts, initial encounter (principal); I12.0 Hypertensive chronic kidney disease with stage 5 chronic kidney disease or end stage renal disease; N18.6 End stage renal disease; Z99.2 Dependence on renal dialysis; Z86.73 Personal history of transient ischemic attack (TIA), and cerebral infarction without residual deficits; Z79.899 Other long term (current) drug therapy; Z98.890 Other specified postprocedural states; Z79.82 Long term (current) use of aspirin; Y92.89 Other specified places as the place of occurrence of the external cause
CPT/HCPCS: 36415; 36832; 80053; 85025; 85610; 88304; 93005; 99284; C1768; C1884; J0690; J1100; J1644; J2250; J2370; J2405; J2720; J3010; J3490; J2440

== ENCOUNTER 2019-04-20 12:36 | Inpatient (IN) | payer MEDICAID, MEDICARE ==
[~2019-04-20] VITALS: Ht 172.7 cm; Wt 75.8 kg
[2019-04-20] VITALS (29 sets, daily range): BP systolic 37–130; BP diastolic 15–91
[2019-04-20] MEDS ORDERED: DEXTROSE 50% WATER 50ML SYRINGE IV ONE ×3 (13:03→18:18)
[2019-04-20] MEDS ORDERED: ALBUTEROL (0.083%) 2.5MG/3ML NEB HHN STA (13:16)
[2019-04-20] MEDS ORDERED: VANCOMYCIN 1 G PREMIX 200 ML IV ONE (13:30)
[2019-04-20] MEDS ORDERED: SODIUM CHLORIDE 0.9% 1000ML BAG (SEPSIS BOLUS) IV ONE (13:30)
[2019-04-20] MEDS ORDERED: PIPERACILLIN/TAZ 3.375G PREMIX 50 ML IV ONE (13:30)
[2019-04-20] MEDS ORDERED: ALBUTEROL (0.083%) 2.5MG/3ML NEB ONE ×3 (13:32→14:52)
[2019-04-20 14:09] LABS: HEMATOCRIT. 28.4 % (42.0-52.0); HEMOGLOBIN. 8.1 g/dL (14.0-18.0); MEAN CORPUSCULAR HEMOGLOBIN 25.2 pg (28.0-32.0); MEAN CORPUSCULAR VOLUME 88.3 fL (80.0-94.0); MEAN PLATELET VOLUME 7.8 fl (7.4-10.4); PLATELET 331 x1000/uL (130-400); RED BLOOD CELL COUNT 3.22 mill/uL (4.7-6.1); RED CELL DISTRIBUTION WIDTH 18.1 % (11.6-14.6)
[2019-04-20 14:17] LABS: CHLORIDE 92 mEq/L (98-107)
[2019-04-20] MEDS ORDERED: ALBUTEROL (0.083%) 2.5MG/3ML NEB HHN ONE (14:45)
[2019-04-20] MEDS ORDERED: SODIUM POLYSTYRENE SULFONATE 15 G/60 ML BOT PO ONE (14:45)
[2019-04-20] MEDS ORDERED: CALCIUM GLUCONATE 1,000 MG in DEXTROSE 5% WATER 50 ML IV ONE (14:45)
[2019-04-20] MEDS ORDERED: SODIUM BICARBONATE 8.4% 1 MEQ/ML 50ML SYR IV ONE ×2 (14:45→18:00)
[2019-04-20 14:48] LABS: PLATELET ESTIMATE NORMAL
[2019-04-20] MEDS ORDERED: NOREPINEPHRINE 4 MG in DEXT 5% WATER 246 ML IV ONE (15:45)
[2019-04-20] MEDS ORDERED: NOREPINEPHRINE 4MG/250ML PMX 250 ML IV NR (15:55)
[2019-04-20] MEDS ORDERED: NOREPINEPHRINE 4MG/250ML PMX 250 ML IV ONE ×2 (16:00→17:00)
[2019-04-20 16:01] LABS: BG BASE EXCESS -19.4 mmol/L (-2.0-2.0); BG BILEVEL POS AIRWAY PRESSURE 18/5; BG CARBOXYHEMOGLOBIN 0.8 % (0.5-1.5); BG FRACTION INSPIRED OXYGEN 40; BG HCO3 ACT 8.2 mmol/L (22.0-26.0); BG METHEMOGLOBIN 0.5 % (0.0-1.5); BG OXYHEMOGLOBIN 97.7 % (94.0-97.0); BG PCO2 25.5 mmHg (35.0-45.0); BG PH 7.125 (7.350-7.450); BG PO2 178.7 mmHg (75.0-100.0); BG SAMPLE SITE RIGHT RADIAL; BG TOTAL HEMOGLOBIN 7.9 g/dL (12.0-18.0); BG VENT MODE MASK - BIPAP; BG VENT RATE 30 set
[2019-04-20] MEDS ORDERED: MIDAZOLAM HCL 50 MG in DEXTROSE 5% WATER 40 ML IV ONE (16:45)
[2019-04-20] MEDS ORDERED: MIDAZOLAM HCL 50 MG in DEXTROSE 5% WATER 40 ML IV NR (16:56)
[2019-04-20] MEDS ORDERED: NITROGLYCERIN 0.4MG TABLET SL SL PRN (17:00)
[2019-04-20] MEDS ORDERED: ONDANSETRON HCL 4MG/2ML INJ IV PRN (17:15)
[2019-04-20] MEDS ORDERED: CLONIDINE 0.1MG TABLET PO PRN (17:15)
[2019-04-20] MEDS ORDERED: GUAIFENESIN 200MG/10ML SUGAR FREE UDC PO PRN (17:15)
[2019-04-20] MEDS ORDERED: IPRATROPIUM/ALBUTEROL 0.5-3(2.5)MG/3ML NEB NEB PRN (17:15)
[2019-04-20] MEDS ORDERED: LORAZEPAM 2MG/ML CPJ IV PRN (17:15)
[2019-04-20] MEDS ORDERED: MAGNESIUM/ALUMINUM HYDROXIDE/SIMETHICONE 30ML UDC PO PRN (17:15)
[2019-04-20] MEDS: DEXT 5%/LACTATED RINGERS 1,000 ML IV SCH ×2 (17:41→20:03)
[2019-04-20 17:54] LABS: BG BASE EXCESS -20.3 mmol/L (-2.0-2.0); BG CARBOXYHEMOGLOBIN 0.4 % (0.5-1.5); BG DEOXYHEMOGLOBIN 0.3 % (0.0-5.0); BG FRACTION INSPIRED OXYGEN 100; BG HCO3 ACT 9.8 mmol/L (22.0-26.0); BG METHEMOGLOBIN 0.6 % (0.0-1.5); BG OXYGEN SATURATION 99.7 % (92.0-98.5); BG OXYHEMOGLOBIN 98.7 % (94.0-97.0); BG PCO2 39.8 mmHg (35.0-45.0); BG PH 7.007 (7.350-7.450); BG PO2 464.7 mmHg (75.0-100.0); BG SAMPLE SITE RIGHT BRACHIAL; BG TIDAL VOLUME(mL) 500 mL; BG TOTAL HEMOGLOBIN 9.3 g/dL (12.0-18.0); BG VENT MODE VENT - A/C; BG VENT RATE 14 set
[2019-04-20] MEDS: SODIUM CHLORIDE 0.9% 1,000 ML IV ONE (18:00)
[2019-04-20] MEDS ORDERED: MEROPENEM 1,000 MG in SODIUM CHLORIDE 0.9% 100 ML IV NR (18:00)
[2019-04-20] MEDS ORDERED: ENOXAPARIN 30MG/0.3ML SYR SUBCUT SCH (18:00)
[2019-04-20] MEDS ORDERED: FENTANYL CITRATE/PF 500 MCG in SODIUM CHLORIDE 0.9% 40 ML IV PRN (18:15)
[2019-04-20 18:58] LABS: BG BASE EXCESS -19.8 mmol/L (-2.0-2.0); BG CARBOXYHEMOGLOBIN 0.5 % (0.5-1.5); BG DEOXYHEMOGLOBIN 0.3 % (0.0-5.0); BG FRACTION INSPIRED OXYGEN 100; BG HCO3 ACT 8.9 mmol/L (22.0-26.0); BG METHEMOGLOBIN 0.4 % (0.0-1.5); BG OXYGEN SATURATION 99.7 % (92.0-98.5); BG OXYHEMOGLOBIN 98.8 % (94.0-97.0); BG PCO2 31.4 mmHg (35.0-45.0); BG PH 7.071 (7.350-7.450); BG PO2 423.2 mmHg (75.0-100.0); BG SAMPLE SITE RIGHT BRACHIAL; BG TIDAL VOLUME(mL) 500 mL; BG TOTAL HEMOGLOBIN 8.5 g/dL (12.0-18.0); BG VENT MODE VENT - A/C; BG VENT RATE 20 set
[2019-04-20] MEDS ORDERED: SODIUM BICARBONATE 8.4% 1 MEQ/ML 50ML SYR IV NR ×3 (19:30)
[2019-04-20] MEDS: SEVELAMER CARBONATE 800 MG TABLET PO SCH (20:00)
[2019-04-20] MEDS: IPRATROPIUM/ALBUTEROL 0.5-3(2.5)MG/3ML NEB HHN SCH (20:25)
[2019-04-20] MEDS ORDERED: VANCOMYCIN 750 MG PREMIX 150 ML IV NR (22:00)
[2019-04-20] MEDS: NOREPINEPHRINE 32 MG in DEXT 5% WATER 468 ML IV PRN (22:03)
[2019-04-20 22:37] LABS: HEMATOCRIT. 26.1 % (42.0-52.0); HEMOGLOBIN. 7.8 g/dL (14.0-18.0); MEAN CORPUSCULAR HEMOGLOBIN 25.4 pg (28.0-32.0); MEAN CORPUSCULAR VOLUME 85.3 fL (80.0-94.0); MEAN PLATELET VOLUME 8.1 fl (7.4-10.4); PLATELET 300 x1000/uL (130-400); RED BLOOD CELL COUNT 3.06 mill/uL (4.7-6.1); RED CELL DISTRIBUTION WIDTH 17.7 % (11.6-14.6)
[2019-04-20 22:51] LABS: CREATINE KINASE MB FRACTION 1.6 ng/mL (0.5-3.6)
[2019-04-20 22:57] LABS: PLATELET ESTIMATE NORMAL
[2019-04-20] MEDS ORDERED: PHENYLEPHRINE 40 MG in DEXT 5% WATER 246 ML IV PRN (23:00)
[2019-04-20] MEDS ORDERED: PHENYLEPHRINE 40 MG in DEXT 5% WATER 496 ML IV PRN (23:00)
[2019-04-20] MEDS ORDERED: HEPARIN SODIUM 1,000 UNIT/1ML VIAL IV ONE (23:15)
[2019-04-20] MEDS: FENTANYL CITRATE/PF 500 MCG in SODIUM CHLORIDE 0.9% 40 ML IV PRN (23:38)
[2019-04-20] MEDS: VASOPRESSIN 10 UNIT in SODIUM CHLORIDE 0.9% 99.5 ML IV PRN (23:40)
[2019-04-21] VITALS (93 sets, daily range): BP systolic 68–139; BP diastolic 25–96
[2019-04-21] MEDS ORDERED: PARICALCITOL 2 MCG/ML VIAL IV SCH
[2019-04-21] MEDS: MIDAZOLAM HCL 50 MG in DEXTROSE 5% WATER 40 ML IV PRN ×2 (00:55→07:55)
[2019-04-21] MEDS: SODIUM CHLORIDE 0.9% 1,000 ML IV ONE (02:21)
[2019-04-21] MEDS: VASOPRESSIN 10 UNIT in SODIUM CHLORIDE 0.9% 99.5 ML IV PRN (02:21)
[2019-04-21] MEDS: SODIUM CHLORIDE 0.9% 1,000 ML IV SCH ×2 (02:42→03:16)
[2019-04-21] MEDS: IPRATROPIUM/ALBUTEROL 0.5-3(2.5)MG/3ML NEB HHN SCH ×3 (04:02→20:44)
[2019-04-21 05:19] LABS: BG BASE EXCESS -4.1 mmol/L (-2.0-2.0); BG CARBOXYHEMOGLOBIN 0.1 % (0.5-1.5); BG DEOXYHEMOGLOBIN 0.7 % (0.0-5.0); BG FRACTION INSPIRED OXYGEN 60; BG HCO3 ACT 19.9 mmol/L (22.0-26.0); BG METHEMOGLOBIN 0.2 % (0.0-1.5); BG OXYGEN SATURATION 99.3 % (92.0-98.5); BG PH 7.412 (7.350-7.450); BG PIP 35 cmH2O; BG PO2 183.5 mmHg (75.0-100.0); BG SAMPLE SITE RIGHT RADIAL; BG TIDAL VOLUME(mL) 500 mL; BG TOTAL HEMOGLOBIN 8.9 g/dL (12.0-18.0); BG VENT MODE VENT - A/C; BG VENT RATE 20 set
[2019-04-21 06:05] LABS: HEMOGLOBIN. 7.6 g/dL (14.0-18.0); MEAN CORPUSCULAR VOLUME 82.6 fL (80.0-94.0); PLATELET 312 x1000/uL (130-400); RED BLOOD CELL COUNT 3.02 mill/uL (4.7-6.1); RED CELL DISTRIBUTION WIDTH 18.1 % (11.6-14.6)
[2019-04-21] MEDS ORDERED: PHENYLEPHRINE 80 MG in DEXT 5% WATER 492 ML IV PRN (07:00)
[2019-04-21 07:22] LABS: CREATINE KINASE MB FRACTION 1.9 ng/mL (0.5-3.6)
[2019-04-21] MEDS ORDERED: ALBUMIN HUMAN 25GM/100ML (25%) IV ONE (08:15)
[2019-04-21] MEDS: SEVELAMER CARBONATE 800 MG TABLET PO SCH ×3 (08:49→16:55)
[2019-04-21] MEDS: PANTOPRAZOLE SODIUM 40 MG/VIAL IV SCH (08:49)
[2019-04-21] MEDS ORDERED: ASPIRIN 81MG EC TABLET PO SCH (09:00)
[2019-04-21] MEDS ORDERED: ENOXAPARIN 30MG/0.3ML SYR SUBCUT SCH (09:00)
[2019-04-21] MEDS ORDERED: MEROPENEM 1,000 MG in SODIUM CHLORIDE 0.9% 100 ML IV SCH (09:00)
[2019-04-21 09:01] LABS: PLATELET ESTIMATE NORMAL
[2019-04-21] MEDS: LEVOTHYROXINE SODIUM 100 MCG/ VIAL IV SCH (09:31)
[2019-04-21] MEDS ORDERED: EPOETIN ALFA 10000UNITS/ML VIAL SUBCUT ONE (10:00)
[2019-04-21] MEDS: HEPARIN 5000 UNITS/ML VIAL SUBCUT SCH ×2 (14:46→21:05)
[2019-04-21] MEDS: PHENYLEPHRINE 80 MG in DEXT 5% WATER 492 ML IV PRN (16:23)
[2019-04-21] MEDS: NOREPINEPHRINE 32 MG in DEXT 5% WATER 468 ML IV PRN (16:24)
[2019-04-21] MEDS: FENTANYL CITRATE/PF 500 MCG in SODIUM CHLORIDE 0.9% 40 ML IV PRN (17:43)
[2019-04-21] MEDS: METOCLOPRAMIDE HCL 10MG/2ML VIAL IV SCH (18:31)
[2019-04-21] MEDS: ACETAMINOPHEN 325MG TABLET PO PRN (19:56)
[2019-04-21] MEDS: MEROPENEM 1,000 MG in SODIUM CHLORIDE 0.9% 100 ML IV SCH (21:05)
[2019-04-22] VITALS (98 sets, daily range): BP systolic 49–111; BP diastolic 26–66
[2019-04-22] MEDS: METOCLOPRAMIDE HCL 10MG/2ML VIAL IV SCH ×5 (00:13→23:56)
[2019-04-22] MEDS: IPRATROPIUM/ALBUTEROL 0.5-3(2.5)MG/3ML NEB HHN SCH ×6 (00:53→20:37)
[2019-04-22] MEDS: PHENYLEPHRINE 80 MG in DEXT 5% WATER 492 ML IV PRN ×3 (01:11→21:56)
[2019-04-22] MEDS: MIDAZOLAM HCL 50 MG in DEXTROSE 5% WATER 40 ML IV PRN ×2 (03:06→21:38)
[2019-04-22] MEDS: HEPARIN 5000 UNITS/ML VIAL SUBCUT SCH ×2 (05:47→18:47)
[2019-04-22] MEDS: FENTANYL CITRATE/PF 500 MCG in SODIUM CHLORIDE 0.9% 40 ML IV PRN (06:06)
[2019-04-22] MEDS: SEVELAMER CARBONATE 800 MG TABLET PO SCH ×3 (08:23→17:23)
[2019-04-22] MEDS: PANTOPRAZOLE SODIUM 40 MG/VIAL IV SCH (08:23)
[2019-04-22] MEDS: LEVOTHYROXINE SODIUM 100 MCG/ VIAL IV SCH (08:25)
[2019-04-22 08:36] LABS: BG BASE EXCESS 0.9 mmol/L (-2.0-2.0); BG CARBOXYHEMOGLOBIN 1.3 % (0.5-1.5); BG DEOXYHEMOGLOBIN 9.8 % (0.0-5.0); BG FRACTION INSPIRED OXYGEN 45; BG HCO3 ACT 25.9 mmol/L (22.0-26.0); BG METHEMOGLOBIN 0.3 % (0.0-1.5); BG OXYHEMOGLOBIN 88.6 % (94.0-97.0); BG PCO2 43.3 mmHg (35.0-45.0); BG PH 7.395 (7.350-7.450); BG PO2 63.1 mmHg (75.0-100.0); BG SAMPLE SITE RIGHT RADIAL; BG TIDAL VOLUME(mL) 500 mL; BG TOTAL HEMOGLOBIN 6.9 g/dL (12.0-18.0); BG VENT MODE VENT - A/C; BG VENT RATE 16 set
[2019-04-22] MEDS: NOREPINEPHRINE 32 MG in DEXT 5% WATER 468 ML IV PRN (15:40)
[2019-04-22] MEDS ORDERED: VANCOMYCIN 1 G PREMIX 200 ML IV NR (16:00)
[2019-04-22] MEDS: MEROPENEM 1,000 MG in SODIUM CHLORIDE 0.9% 100 ML IV SCH (20:45)
[2019-04-22] MEDS: ACETAMINOPHEN 325MG TABLET PO PRN (22:59)
[2019-04-23] VITALS (97 sets, daily range): BP systolic 91–117; BP diastolic 43–62
[2019-04-23] MEDS: IPRATROPIUM/ALBUTEROL 0.5-3(2.5)MG/3ML NEB HHN SCH ×7 (00:28→19:49)
[2019-04-23] MEDS: FENTANYL CITRATE/PF 500 MCG in SODIUM CHLORIDE 0.9% 40 ML IV PRN ×2 (01:14→13:53)
[2019-04-23] MEDS: HEPARIN 5000 UNITS/ML VIAL SUBCUT SCH ×3 (03:10→18:12)
[2019-04-23] MEDS: METOCLOPRAMIDE HCL 10MG/2ML VIAL IV SCH ×7 (06:22→23:32)
[2019-04-23] MEDS: PHENYLEPHRINE 80 MG in DEXT 5% WATER 492 ML IV PRN ×2 (07:25→13:52)
[2019-04-23 07:46] LABS: BG BASE EXCESS -2.3 mmol/L (-2.0-2.0); BG CARBOXYHEMOGLOBIN 0.7 % (0.5-1.5); BG DEOXYHEMOGLOBIN 0.2 % (0.0-5.0); BG HCO3 ACT 22.2 mmol/L (22.0-26.0); BG METHEMOGLOBIN 0.4 % (0.0-1.5); BG OXYGEN SATURATION 99.8 % (92.0-98.5); BG OXYHEMOGLOBIN 98.7 % (94.0-97.0); BG PCO2 36.7 mmHg (35.0-45.0); BG PH 7.399 (7.350-7.450); BG PO2 200.5 mmHg (75.0-100.0); BG SAMPLE SITE RIGHT BRACHIAL; BG TIDAL VOLUME(mL) 500 mL; BG TOTAL HEMOGLOBIN 8.5 g/dL (12.0-18.0); BG VENT MODE VENT - A/C; BG VENT RATE 16 set
[2019-04-23] MEDS: SEVELAMER CARBONATE 800 MG TABLET PO SCH ×3 (08:23→18:06)
[2019-04-23] MEDS: LEVOTHYROXINE SODIUM 100 MCG/ VIAL IV SCH (08:23)
[2019-04-23] MEDS: PANTOPRAZOLE SODIUM 40 MG/VIAL IV SCH (08:23)
[2019-04-23] MEDS: DOCUSATE SODIUM SUGAR FREE 100MG/10ML UDC NG SCH (08:23)
[2019-04-23 10:33] LABS: HEMATOCRIT. 23.5 % (42.0-52.0); HEMOGLOBIN. 7.5 g/dL (14.0-18.0); MEAN CORPUSCULAR HEMOGLOBIN 25.5 pg (28.0-32.0); MEAN CORPUSCULAR VOLUME 80.3 fL (80.0-94.0); MEAN PLATELET VOLUME 7.9 fl (7.4-10.4); PLATELET 342 x1000/uL (130-400); RED BLOOD CELL COUNT 2.93 mill/uL (4.7-6.1); RED CELL DISTRIBUTION WIDTH 17.2 % (11.6-14.6)
[2019-04-23 10:40] LABS: INR 1.3; PARTIAL THROMBOPLASTIN TIME 34.7 sec (23.4-31.0); PROTHROMBIN TIME 13.9 sec (9.6-11.0)
[2019-04-23 10:56] LABS: PLATELET ESTIMATE NORMAL
[2019-04-23] MEDS: NOREPINEPHRINE 32 MG in DEXT 5% WATER 468 ML IV PRN (11:56)
[2019-04-23] MEDS: MIDAZOLAM HCL 50 MG in DEXTROSE 5% WATER 40 ML IV PRN (13:53)
[2019-04-23] MEDS: ACETAMINOPHEN 325MG TABLET PO PRN (14:17)
[2019-04-23] MEDS: MEROPENEM 1,000 MG in SODIUM CHLORIDE 0.9% 100 ML IV SCH (21:24)
[2019-04-24] VITALS (98 sets, daily range): BP systolic 68–124; BP diastolic 25–78
[2019-04-24] MEDS: IPRATROPIUM/ALBUTEROL 0.5-3(2.5)MG/3ML NEB HHN SCH ×5 (00:03→20:59)
[2019-04-24] MEDS: PHENYLEPHRINE 80 MG in DEXT 5% WATER 492 ML IV PRN ×2 (00:31→14:38)
[2019-04-24] MEDS: HEPARIN 5000 UNITS/ML VIAL SUBCUT SCH ×3 (02:18→18:21)
[2019-04-24] MEDS: FENTANYL CITRATE/PF 500 MCG in SODIUM CHLORIDE 0.9% 40 ML IV PRN ×2 (03:35→18:21)
[2019-04-24 05:43] LABS: BASOPHILS % 1.2 % (0.0-2.0); EOSINOPHILS % 17.3 % (0.0-5.0); HEMATOCRIT. 26.8 % (42.0-52.0); HEMOGLOBIN. 8.4 g/dL (14.0-18.0); LYMPHOCYTES % 5.3 % (20.0-50.0); MEAN CORPUSCULAR HEMOGLOBIN 25.8 pg (28.0-32.0); MEAN CORPUSCULAR VOLUME 81.9 fL (80.0-94.0); MEAN PLATELET VOLUME 7.8 fl (7.4-10.4); NEUTROPHILS % 66.2 % (40.0-76.0); PLATELET 321 x1000/uL (130-400); RED BLOOD CELL COUNT 3.27 mill/uL (4.7-6.1); RED CELL DISTRIBUTION WIDTH 17.7 % (11.6-14.6)
[2019-04-24] MEDS: METOCLOPRAMIDE HCL 10MG/2ML VIAL IV SCH ×6 (06:00→17:30)
[2019-04-24] MEDS: MIDAZOLAM HCL 50 MG in DEXTROSE 5% WATER 40 ML IV PRN ×2 (07:39→22:45)
[2019-04-24] MEDS: SEVELAMER CARBONATE 800 MG TABLET PO SCH ×3 (08:20→17:30)
[2019-04-24] MEDS: DOCUSATE SODIUM SUGAR FREE 100MG/10ML UDC NG SCH (09:28)
[2019-04-24] MEDS: LEVOTHYROXINE SODIUM 100 MCG/ VIAL IV SCH (09:28)
[2019-04-24] MEDS: PANTOPRAZOLE SODIUM 40 MG/VIAL IV SCH (09:28)
[2019-04-24 11:46] LABS: BG BASE EXCESS 2.4 mmol/L (-2.0-2.0); BG CARBOXYHEMOGLOBIN 0.6 % (0.5-1.5); BG DEOXYHEMOGLOBIN 0.7 % (0.0-5.0); BG FRACTION INSPIRED OXYGEN 45; BG METHEMOGLOBIN 0.2 % (0.0-1.5); BG OXYGEN SATURATION 99.3 % (92.0-98.5); BG OXYHEMOGLOBIN 98.5 % (94.0-97.0); BG PCO2 36.3 mmHg (35.0-45.0); BG PH 7.473 (7.350-7.450); BG PO2 184.4 mmHg (75.0-100.0); BG SAMPLE SITE RIGHT BRACHIAL; BG TIDAL VOLUME(mL) 500 mL; BG TOTAL HEMOGLOBIN 9.1 g/dL (12.0-18.0); BG VENT MODE VENT - A/C; BG VENT RATE 18 set
[2019-04-24] MEDS: MIDODRINE HCL 5MG TABLET PO SCH ×2 (14:15→21:20)
[2019-04-24] MEDS: NOREPINEPHRINE 32 MG in DEXT 5% WATER 468 ML IV PRN (15:42)
[2019-04-24] MEDS: MEROPENEM 1,000 MG in SODIUM CHLORIDE 0.9% 100 ML IV SCH (20:38)
[2019-04-25] VITALS (86 sets, daily range): BP systolic 87–115; BP diastolic 29–63
[2019-04-25] MEDS: IPRATROPIUM/ALBUTEROL 0.5-3(2.5)MG/3ML NEB HHN SCH ×6 (00:46→21:06)
[2019-04-25] MEDS: METOCLOPRAMIDE HCL 10MG/2ML VIAL IV SCH ×5 (01:29→23:59)
[2019-04-25] MEDS: HEPARIN 5000 UNITS/ML VIAL SUBCUT SCH ×3 (04:11→19:03)
[2019-04-25] MEDS: MIDODRINE HCL 5MG TABLET PO SCH ×3 (05:47→22:19)
[2019-04-25 06:04] LABS: HEMOGLOBIN. 7.9 g/dL (14.0-18.0); MEAN CORPUSCULAR HEMOGLOBIN 25.7 pg (28.0-32.0); MEAN CORPUSCULAR VOLUME 81.1 fL (80.0-94.0); MEAN PLATELET VOLUME 7.6 fl (7.4-10.4); PLATELET 249 x1000/uL (130-400); RED BLOOD CELL COUNT 3.08 mill/uL (4.7-6.1); RED CELL DISTRIBUTION WIDTH 17.9 % (11.6-14.6)
[2019-04-25] MEDS: DOCUSATE SODIUM SUGAR FREE 100MG/10ML UDC NG SCH (09:00)
[2019-04-25] MEDS: SEVELAMER CARBONATE 800 MG TABLET PO SCH ×3 (09:01→19:02)
[2019-04-25] MEDS: CLOPIDOGREL 75MG TABLET PO SCH (09:02)
[2019-04-25] MEDS: PANTOPRAZOLE SODIUM 40 MG/VIAL IV SCH (09:02)
[2019-04-25 09:04] LABS: PLATELET ESTIMATE NORMAL
[2019-04-25 10:07] LABS: BG BASE EXCESS 1.2 mmol/L (-2.0-2.0); BG CARBOXYHEMOGLOBIN 0.6 % (0.5-1.5); BG DEOXYHEMOGLOBIN 0.5 % (0.0-5.0); BG HCO3 ACT 24.7 mmol/L (22.0-26.0); BG METHEMOGLOBIN 0.4 % (0.0-1.5); BG OXYGEN SATURATION 99.5 % (92.0-98.5); BG OXYHEMOGLOBIN 98.5 % (94.0-97.0); BG PCO2 34.6 mmHg (35.0-45.0); BG PH 7.472 (7.350-7.450); BG SAMPLE SITE RIGHT RADIAL; BG TIDAL VOLUME(mL) 500 mL; BG TOTAL HEMOGLOBIN 9.2 g/dL (12.0-18.0); BG VENT MODE VENT - A/C; BG VENT RATE 18 set
[2019-04-25] MEDS: LEVOTHYROXINE SODIUM 100 MCG/ VIAL IV SCH (13:17)
[2019-04-25] MEDS: MEROPENEM 1,000 MG in SODIUM CHLORIDE 0.9% 100 ML IV SCH (20:04)
[2019-04-26] VITALS (79 sets, daily range): BP systolic 84–128; BP diastolic 43–77
[2019-04-26] MEDS: IPRATROPIUM/ALBUTEROL 0.5-3(2.5)MG/3ML NEB HHN SCH ×6 (00:42→20:14)
[2019-04-26] MEDS: HEPARIN 5000 UNITS/ML VIAL SUBCUT SCH ×3 (03:46→17:41)
[2019-04-26] MEDS: METOCLOPRAMIDE HCL 10MG/2ML VIAL IV SCH ×4 (05:05→23:50)
[2019-04-26] MEDS: MIDODRINE HCL 5MG TABLET PO SCH (05:05)
[2019-04-26] MEDS: NOREPINEPHRINE 32 MG in DEXT 5% WATER 468 ML IV PRN (05:47)
[2019-04-26 06:28] LABS: HEMATOCRIT. 24.6 % (42.0-52.0); HEMOGLOBIN. 7.7 g/dL (14.0-18.0); MEAN CORPUSCULAR HEMOGLOBIN 25.6 pg (28.0-32.0); MEAN CORPUSCULAR VOLUME 81.3 fL (80.0-94.0); MEAN PLATELET VOLUME 7.8 fl (7.4-10.4); PLATELET 250 x1000/uL (130-400); RED BLOOD CELL COUNT 3.03 mill/uL (4.7-6.1); RED CELL DISTRIBUTION WIDTH 18.1 % (11.6-14.6)
[2019-04-26] MEDS: SEVELAMER CARBONATE 800 MG TABLET PO SCH ×3 (07:52→17:41)
[2019-04-26] MEDS: CLOPIDOGREL 75MG TABLET PO SCH (07:53)
[2019-04-26] MEDS: PANTOPRAZOLE SODIUM 40 MG/VIAL IV SCH (07:53)
[2019-04-26] MEDS: LEVOTHYROXINE SODIUM 100 MCG/ VIAL IV SCH (07:54)
[2019-04-26] MEDS: DOCUSATE SODIUM SUGAR FREE 100MG/10ML UDC NG SCH (07:54)
[2019-04-26 08:28] LABS: BG BASE EXCESS 0.1 mmol/L (-2.0-2.0); BG CARBOXYHEMOGLOBIN 0.9 % (0.5-1.5); BG DEOXYHEMOGLOBIN 0.6 % (0.0-5.0); BG HCO3 ACT 24.3 mmol/L (22.0-26.0); BG METHEMOGLOBIN 0.4 % (0.0-1.5); BG OXYGEN SATURATION 99.4 % (92.0-98.5); BG OXYHEMOGLOBIN 98.1 % (94.0-97.0); BG PCO2 37.7 mmHg (35.0-45.0); BG PH 7.428 (7.350-7.450); BG SAMPLE SITE RIGHT BRACHIAL; BG TIDAL VOLUME(mL) 500 mL; BG TOTAL HEMOGLOBIN 8.7 g/dL (12.0-18.0); BG VENT MODE VENT - A/C; BG VENT RATE 18 set
[2019-04-26 10:04] LABS: PLATELET ESTIMATE NORMAL
[2019-04-26] MEDS: MIDODRINE HCL 2.5MG TABLET PO SCH ×2 (12:52→21:52)
[2019-04-26] MEDS: FENTANYL CITRATE/PF 500 MCG in SODIUM CHLORIDE 0.9% 40 ML IV PRN (19:00)
[2019-04-26] MEDS: MIDAZOLAM HCL 50 MG in DEXTROSE 5% WATER 40 ML IV PRN (19:00)
[2019-04-26] MEDS: MEROPENEM 1,000 MG in SODIUM CHLORIDE 0.9% 100 ML IV SCH (20:25)
[2019-04-27] VITALS (75 sets, daily range): BP systolic 89–135; BP diastolic 46–97
[2019-04-27] MEDS: IPRATROPIUM/ALBUTEROL 0.5-3(2.5)MG/3ML NEB HHN SCH ×6 (00:36→20:55)
[2019-04-27] MEDS: HEPARIN 5000 UNITS/ML VIAL SUBCUT SCH ×3 (02:49→19:42)
[2019-04-27] MEDS: METOCLOPRAMIDE HCL 10MG/2ML VIAL IV SCH ×3 (05:29→17:31)
[2019-04-27] MEDS: MIDODRINE HCL 2.5MG TABLET PO SCH ×3 (05:30→21:19)
[2019-04-27] MEDS: DOCUSATE SODIUM SUGAR FREE 100MG/10ML UDC NG SCH (08:17)
[2019-04-27] MEDS: SEVELAMER CARBONATE 800 MG TABLET PO SCH ×3 (08:17→17:32)
[2019-04-27] MEDS: PANTOPRAZOLE SODIUM 40 MG/VIAL IV SCH (08:17)
[2019-04-27] MEDS: CLOPIDOGREL 75MG TABLET PO SCH (08:17)
[2019-04-27] MEDS: LEVOTHYROXINE SODIUM 100 MCG/ VIAL IV SCH (08:19)
[2019-04-27 09:47] LABS: BG BASE EXCESS -3.6 mmol/L (-2.0-2.0); BG CARBOXYHEMOGLOBIN 0.3 % (0.5-1.5); BG DEOXYHEMOGLOBIN 0.8 % (0.0-5.0); BG FRACTION INSPIRED OXYGEN 45; BG HCO3 ACT 21.1 mmol/L (22.0-26.0); BG METHEMOGLOBIN 0.4 % (0.0-1.5); BG OXYGEN SATURATION 99.2 % (92.0-98.5); BG OXYHEMOGLOBIN 98.5 % (94.0-97.0); BG PCO2 36.9 mmHg (35.0-45.0); BG PH 7.376 (7.350-7.450); BG PO2 175.2 mmHg (75.0-100.0); BG PRESSURE SUPPORT 12; BG SAMPLE SITE RIGHT RADIAL; BG TIDAL VOLUME(mL) 500 mL; BG TOTAL HEMOGLOBIN 10.7 g/dL (12.0-18.0); BG VENT MODE VENT - SIMV; BG VENT RATE 10 set
[2019-04-27] MEDS: MIDAZOLAM HCL 50 MG in DEXTROSE 5% WATER 40 ML IV PRN (15:09)
[2019-04-27] MEDS: FENTANYL CITRATE/PF 500 MCG in SODIUM CHLORIDE 0.9% 40 ML IV PRN ×2 (15:09→21:37)
[2019-04-27] MEDS: MEROPENEM 1,000 MG in SODIUM CHLORIDE 0.9% 100 ML IV SCH (21:19)
[2019-04-27] MEDS: EPOETIN ALFA 10000UNITS/ML VIAL SUBCUT SCH (21:19)
[2019-04-28] VITALS (62 sets, daily range): BP systolic 66–126; BP diastolic 43–68
[2019-04-28 00:17] LABS: ETHANOL BLOOD < 10 mg/dL
[2019-04-28] MEDS: METOCLOPRAMIDE HCL 10MG/2ML VIAL IV SCH ×4 (00:19→17:17)
[2019-04-28 00:20] LABS: LDL CHOLESTEROL 48 mg/dL (5-100)
[2019-04-28 00:22] LABS: HDL CHOLESTEROL 27 mg/dL (40-59); T4 FREE 1.29 ng/dL (0.76-1.46)
[2019-04-28] MEDS: IPRATROPIUM/ALBUTEROL 0.5-3(2.5)MG/3ML NEB HHN SCH ×6 (01:00→20:35)
[2019-04-28 01:47] LABS: VITAMIN B12 SERUM > 2000.0 pg/mL (211-911)
[2019-04-28] MEDS: HEPARIN 5000 UNITS/ML VIAL SUBCUT SCH ×3 (03:18→18:08)
[2019-04-28] MEDS: MIDODRINE HCL 2.5MG TABLET PO SCH ×3 (05:53→21:37)
[2019-04-28] MEDS: CLOPIDOGREL 75MG TABLET PO SCH (08:22)
[2019-04-28] MEDS: DOCUSATE SODIUM SUGAR FREE 100MG/10ML UDC NG SCH (08:22)
[2019-04-28] MEDS: SEVELAMER CARBONATE 800 MG TABLET PO SCH ×3 (08:22→17:17)
[2019-04-28] MEDS: PANTOPRAZOLE SODIUM 40 MG/VIAL IV SCH (08:22)
[2019-04-28] MEDS: LEVOTHYROXINE SODIUM 100 MCG/ VIAL IV SCH (08:34)
[2019-04-28 09:11] LABS: HEMATOCRIT. 25.9 % (42.0-52.0); HEMOGLOBIN. 8.3 g/dL (14.0-18.0); MEAN CORPUSCULAR HEMOGLOBIN 25.8 pg (28.0-32.0); MEAN CORPUSCULAR VOLUME 80.8 fL (80.0-94.0); PLATELET 276 x1000/uL (130-400); RED CELL DISTRIBUTION WIDTH 19.4 % (11.6-14.6)
[2019-04-28 09:45] LABS: PLATELET ESTIMATE NORMAL
[2019-04-28] MEDS ORDERED: LEVOTHYROXINE SODIUM 100 MCG/ VIAL IV NR (10:00)
[2019-04-28 12:06] LABS: BG BASE EXCESS -6.6 mmol/L (-2.0-2.0); BG CARBOXYHEMOGLOBIN 0.2 % (0.5-1.5); BG DEOXYHEMOGLOBIN 2.3 % (0.0-5.0); BG FRACTION INSPIRED OXYGEN 30; BG HCO3 ACT 17.3 mmol/L (22.0-26.0); BG METHEMOGLOBIN 0.3 % (0.0-1.5); BG OXYGEN SATURATION 97.7 % (92.0-98.5); BG OXYHEMOGLOBIN 97.2 % (94.0-97.0); BG PCO2 28.7 mmHg (35.0-45.0); BG PH 7.398 (7.350-7.450); BG PO2 108.7 mmHg (75.0-100.0); BG PRESSURE SUPPORT 8; BG SAMPLE SITE RIGHT BRACHIAL; BG VENT MODE VENT - CPAP
[2019-04-28 23:42] LABS: BG BASE EXCESS -3.2 mmol/L (-2.0-2.0); BG DEOXYHEMOGLOBIN 11.8 % (0.0-5.0); BG FRACTION INSPIRED OXYGEN 40; BG HCO3 ACT 22.3 mmol/L (22.0-26.0); BG METHEMOGLOBIN 0.7 % (0.0-1.5); BG OXYGEN SATURATION 88.1 % (92.0-98.5); BG OXYHEMOGLOBIN 87.5 % (94.0-97.0); BG PH 7.343 (7.350-7.450); BG PO2 61.2 mmHg (75.0-100.0); BG SAMPLE SITE RIGHT RADIAL; BG TOTAL HEMOGLOBIN 10.7 g/dL (12.0-18.0); BG VENT MODE MASK - AEROSOL
[2019-04-29] VITALS (38 sets, daily range): BP systolic 93–125; BP diastolic 45–77
[2019-04-29] MEDS: IPRATROPIUM/ALBUTEROL 0.5-3(2.5)MG/3ML NEB HHN SCH ×6 (00:03→20:37)
[2019-04-29] MEDS ORDERED: LORAZEPAM 0.5MG TABLET PO NR (00:15)
[2019-04-29] MEDS ORDERED: LORAZEPAM 2MG/ML CPJ IV NR (00:15)
[2019-04-29] MEDS: METOCLOPRAMIDE HCL 10MG/2ML VIAL IV SCH ×5 (00:26→23:45)
[2019-04-29] MEDS: HEPARIN 5000 UNITS/ML VIAL SUBCUT SCH ×3 (02:32→19:20)
[2019-04-29] MEDS: MIDODRINE HCL 2.5MG TABLET PO SCH ×3 (05:11→21:16)
[2019-04-29 06:19] LABS: HEMATOCRIT. 28.7 % (42.0-52.0); MEAN CORPUSCULAR HEMOGLOBIN 25.4 pg (28.0-32.0); MEAN CORPUSCULAR VOLUME 81.4 fL (80.0-94.0); MEAN PLATELET VOLUME 8.6 fl (7.4-10.4); PLATELET 319 x1000/uL (130-400); RED BLOOD CELL COUNT 3.52 mill/uL (4.7-6.1); RED CELL DISTRIBUTION WIDTH 19.2 % (11.6-14.6)
[2019-04-29 08:46] LABS: PLATELET ESTIMATE NORMAL
[2019-04-29] MEDS: DOCUSATE SODIUM SUGAR FREE 100MG/10ML UDC NG SCH (09:00)
[2019-04-29] MEDS: PANTOPRAZOLE SODIUM 40 MG/VIAL IV SCH (10:56)
[2019-04-29] MEDS: SEVELAMER CARBONATE 800 MG TABLET PO SCH ×3 (10:56→17:07)
[2019-04-29] MEDS: CLOPIDOGREL 75MG TABLET PO SCH (10:56)
[2019-04-29] MEDS: LEVOTHYROXINE SODIUM 100 MCG/ VIAL IV SCH (10:57)
[2019-04-29] MEDS: EPOETIN ALFA 10000UNITS/ML VIAL SUBCUT SCH (21:17)
[2019-04-30] VITALS (45 sets, daily range): BP systolic 96–120; BP diastolic 50–67
[2019-04-30] MEDS: IPRATROPIUM/ALBUTEROL 0.5-3(2.5)MG/3ML NEB HHN SCH ×6 (00:26→21:06)
[2019-04-30] MEDS: HEPARIN 5000 UNITS/ML VIAL SUBCUT SCH ×3 (02:05→18:02)
[2019-04-30] MEDS: METOCLOPRAMIDE HCL 10MG/2ML VIAL IV SCH ×3 (05:12→17:10)
[2019-04-30] MEDS: MIDODRINE HCL 2.5MG TABLET PO SCH ×3 (05:12→22:30)
[2019-04-30 05:41] LABS: CHLORIDE 109 mEq/L (98-107)
[2019-04-30 05:48] LABS: HEMOGLOBIN. 8.7 g/dL (14.0-18.0); MEAN CORPUSCULAR HEMOGLOBIN 25.1 pg (28.0-32.0); MEAN CORPUSCULAR VOLUME 80.8 fL (80.0-94.0); MEAN PLATELET VOLUME 8.2 fl (7.4-10.4); PLATELET 398 x1000/uL (130-400); RED BLOOD CELL COUNT 3.46 mill/uL (4.7-6.1); RED CELL DISTRIBUTION WIDTH 19.2 % (11.6-14.6)
[2019-04-30 07:48] LABS: PLATELET ESTIMATE NORMAL
[2019-04-30] MEDS: SEVELAMER CARBONATE 800 MG TABLET PO SCH ×3 (08:59→17:22)
[2019-04-30] MEDS: PANTOPRAZOLE SODIUM 40 MG/VIAL IV SCH (08:59)
[2019-04-30] MEDS: LEVOTHYROXINE SODIUM 100 MCG/ VIAL IV SCH (08:59)
[2019-04-30] MEDS: CLOPIDOGREL 75MG TABLET PO SCH (08:59)
[2019-04-30] MEDS: DOCUSATE SODIUM SUGAR FREE 100MG/10ML UDC NG SCH (08:59)
[2019-04-30 13:06] LABS: ANTI-THROMBIN ACTIVITY 68 % (75-135); DRVVT LA 28.3 sec (0.0-47.0); LUPUS ANTICOAG INTERPRETATION Comment: (.); PROTEIN C FUNCTIONAL 57 % (73-180); PTT-LA 39.9 sec (0.0-51.9)
[2019-05-01] VITALS (33 sets, daily range): BP systolic 88–124; BP diastolic 48–70
[2019-05-01] MEDS: IPRATROPIUM/ALBUTEROL 0.5-3(2.5)MG/3ML NEB HHN SCH ×6 (00:22→20:26)
[2019-05-01] MEDS: METOCLOPRAMIDE HCL 10MG/2ML VIAL IV SCH ×2 (01:40→06:00)
[2019-05-01] MEDS: HEPARIN 5000 UNITS/ML VIAL SUBCUT SCH ×3 (03:19→17:53)
[2019-05-01 04:25] LABS: HEMATOCRIT. 25.3 % (42.0-52.0); HEMOGLOBIN. 7.9 g/dL (14.0-18.0); MEAN CORPUSCULAR HEMOGLOBIN 24.9 pg (28.0-32.0); MEAN CORPUSCULAR VOLUME 80.1 fL (80.0-94.0); MEAN PLATELET VOLUME 8.2 fl (7.4-10.4); PLATELET 433 x1000/uL (130-400); RED BLOOD CELL COUNT 3.16 mill/uL (4.7-6.1); RED CELL DISTRIBUTION WIDTH 19.2 % (11.6-14.6)
[2019-05-01 06:44] LABS: PLATELET ESTIMATE NORMAL
[2019-05-01] MEDS: MIDODRINE HCL 2.5MG TABLET PO SCH ×3 (07:12→21:46)
[2019-05-01] MEDS: DOCUSATE SODIUM SUGAR FREE 100MG/10ML UDC NG SCH (08:14)
[2019-05-01] MEDS: PANTOPRAZOLE SODIUM 40 MG/VIAL IV SCH (08:14)
[2019-05-01] MEDS: LEVOTHYROXINE SODIUM 100 MCG/ VIAL IV SCH (08:14)
[2019-05-01] MEDS: SEVELAMER CARBONATE 800 MG TABLET PO SCH ×3 (08:14→17:53)
[2019-05-01 09:11] LABS: ANTI-CARDIOLIPIN AB IGA < 9 APL U/mL (0-11); ANTI-CARDIOLIPIN AB IGG < 9 GPL U/mL (0-14); ANTI-CARDIOLIPIN AB IGM < 9 MPL U/mL (0-12)
[2019-05-01] MEDS ORDERED: PIPERACILLIN/TAZOBACTAM 3.375 G in DEXT 5% WATER 100 ML IV SCH (10:45)
[2019-05-01] MEDS ORDERED: DOCUSATE SODIUM SUGAR FREE 100MG/10ML UDC NG PRN (11:15)
[2019-05-01] MEDS ORDERED: VANCOMYCIN 1500MG in DEXTROSE 5% WATER 250ML IV NR (15:00)
[2019-05-01] MEDS: CEFTRIAXONE 2 G in DEXTROSE 5% WATER 50 ML IV SCH (15:35)
[2019-05-01] MEDS ORDERED: EPOETIN ALFA 10000UNITS/ML VIAL SUBCUT SCH (21:00)
[2019-05-02] VITALS (38 sets, daily range): BP systolic 86–120; BP diastolic 47–68
[2019-05-02] MEDS: IPRATROPIUM/ALBUTEROL 0.5-3(2.5)MG/3ML NEB HHN SCH ×6 (00:09→20:38)
[2019-05-02] MEDS: HEPARIN 5000 UNITS/ML VIAL SUBCUT SCH ×3 (02:49→21:06)
[2019-05-02] MEDS: MIDODRINE HCL 2.5MG TABLET PO SCH ×3 (06:37→21:11)
[2019-05-02] MEDS: SEVELAMER CARBONATE 800 MG TABLET PO SCH ×3 (08:56→18:01)
[2019-05-02] MEDS: LEVOTHYROXINE SODIUM 100 MCG/ VIAL IV SCH (08:58)
[2019-05-02] MEDS: PANTOPRAZOLE SODIUM 40 MG/VIAL IV SCH (08:58)
[2019-05-02 10:47] LABS: HEMATOCRIT. 25.3 % (42.0-52.0); HEMOGLOBIN. 7.8 g/dL (14.0-18.0); MEAN CORPUSCULAR HEMOGLOBIN 24.8 pg (28.0-32.0); MEAN CORPUSCULAR VOLUME 80.3 fL (80.0-94.0); MEAN PLATELET VOLUME 8.3 fl (7.4-10.4); PLATELET 464 x1000/uL (130-400); RED BLOOD CELL COUNT 3.14 mill/uL (4.7-6.1); RED CELL DISTRIBUTION WIDTH 18.8 % (11.6-14.6)
[2019-05-02 11:06] LABS: PLATELET ESTIMATE INCREASED
[2019-05-02] MEDS: CEFTRIAXONE 2 G in DEXTROSE 5% WATER 50 ML IV SCH (14:04)
[2019-05-03] VITALS (11 sets, daily range): BP systolic 92–117; BP diastolic 50–66
[2019-05-03] MEDS: HEPARIN 5000 UNITS/ML VIAL SUBCUT SCH ×3 (03:33→18:49)
[2019-05-03] MEDS: IPRATROPIUM/ALBUTEROL 0.5-3(2.5)MG/3ML NEB HHN SCH ×6 (04:00→20:00)
[2019-05-03] MEDS: MIDODRINE HCL 2.5MG TABLET PO SCH ×3 (05:49→21:29)
[2019-05-03] MEDS: PANTOPRAZOLE SODIUM 40 MG/VIAL IV SCH (08:39)
[2019-05-03] MEDS: SEVELAMER CARBONATE 800 MG TABLET PO SCH ×3 (08:39→18:48)
[2019-05-03] MEDS: LEVOTHYROXINE SODIUM 100 MCG/ VIAL IV SCH (10:38)
[2019-05-03] MEDS: CEFTRIAXONE 2 G in DEXTROSE 5% WATER 50 ML IV SCH (14:35)
[2019-05-04] VITALS (12 sets, daily range): BP systolic 88–133; BP diastolic 47–72
[2019-05-04] MEDS: IPRATROPIUM/ALBUTEROL 0.5-3(2.5)MG/3ML NEB HHN SCH ×6 (04:00→20:58)
[2019-05-04] MEDS: HEPARIN 5000 UNITS/ML VIAL SUBCUT SCH ×3 (05:07→19:23)
[2019-05-04] MEDS: MIDODRINE HCL 2.5MG TABLET PO SCH (05:07)
[2019-05-04 06:06] LABS: HEMATOCRIT. 27.4 % (42.0-52.0); HEMOGLOBIN. 8.6 g/dL (14.0-18.0); MEAN CORPUSCULAR HEMOGLOBIN 25.2 pg (28.0-32.0); MEAN CORPUSCULAR VOLUME 80.1 fL (80.0-94.0); MEAN PLATELET VOLUME 8.2 fl (7.4-10.4); PLATELET 589 x1000/uL (130-400); RED BLOOD CELL COUNT 3.42 mill/uL (4.7-6.1); RED CELL DISTRIBUTION WIDTH 18.9 % (11.6-14.6)
[2019-05-04] MEDS: SEVELAMER CARBONATE 800 MG TABLET PO SCH ×3 (08:00→18:16)
[2019-05-04 08:56] LABS: PLATELET ESTIMATE INCREASED
[2019-05-04] MEDS: PANTOPRAZOLE SODIUM 40 MG/VIAL IV SCH (09:24)
[2019-05-04] MEDS ORDERED: VANCOMYCIN 750 MG in DEXT 5% WATER 250 ML IV SCH (14:00)
[2019-05-04] MEDS: MIDODRINE HCL 5MG TABLET PO SCH ×2 (14:23→21:24)
[2019-05-04] MEDS: CEFTRIAXONE 2 G in DEXTROSE 5% WATER 50 ML IV SCH ×2 (14:30→18:27)
[2019-05-04] MEDS: VANCOMYCIN HCL 1000 MG/20 ML ORAL PO SCH ×2 (18:00→23:47)
[2019-05-04] MEDS ORDERED: EPOETIN ALFA 10000UNITS/ML VIAL SUBCUT SCH (21:00)
[2019-05-05] VITALS (9 sets, daily range): BP systolic 98–122; BP diastolic 52–61
[2019-05-05] MEDS: HEPARIN 5000 UNITS/ML VIAL SUBCUT SCH ×2 (03:04→10:44)
[2019-05-05] MEDS: VANCOMYCIN HCL 1000 MG/20 ML ORAL PO SCH ×2 (05:56→14:17)
[2019-05-05] MEDS: MIDODRINE HCL 5MG TABLET PO SCH ×2 (05:56→14:23)
[2019-05-05] MEDS ORDERED: LEVOTHYROXINE SODIUM 100MCG TABLET PO SCH (08:00)
[2019-05-05] MEDS: IPRATROPIUM/ALBUTEROL 0.5-3(2.5)MG/3ML NEB HHN SCH ×3 (08:51→12:16)
[2019-05-05] MEDS: SEVELAMER CARBONATE 800 MG TABLET PO SCH ×2 (09:10→12:43)
[2019-05-05] MEDS: PANTOPRAZOLE SODIUM 40 MG/VIAL IV SCH (09:10)
[2019-05-06 13:06] LABS: 7-AMINOCLONAZEPAM CONFIRM Negative (.); ALPRAZOLAM CONFIRM Negative (.); BARBITURATE SCREEN Negative ug/mL (Cutoff:0.1); BENZODIAZEPINE SCREEN ++POSITIVE++ ng/mL (Cutoff:20); CHLORDIAZEPOXIDE CONFIRM Negative (.); CLONAZEPAM CONFIRM Negative (.); DESMETHYLCHLORDIAZEPOXIDE Negative (.); DIAZEPAM CONFIRM Negative (.); FLURAZEPAM CONFIRM Negative (.); LORAZEPAM CONFIRM Negative (.); MIDAZOLAM CONFIRM 40 ng/mL (.); OPIATES SCREEN Negative ng/mL (Cutoff:5); OXAZEPAM CONFIRM Negative (.); PHENCYCLIDINE SCREEN Negative ng/mL (Cutoff:8); TEMAZEPAM CONFIRM Negative (.); TRIAZOLAM CONFIRM Negative (.)
== END 2019-05-05 15:35 | DRG 870 ==
LOC: ER 12:39 → CVICU 17:01 → EDBEDREQTM 17:04 → EDBEDREQ 17:04 → ENRESERV 18:01 → CVICU 04-29 04:45 → 5EST 05-02 18:30
PROVIDERS: ADMIT Internal Medicine; ATTEND Internal Medicine
PROC: 5A1955Z Respiratory Ventilation, Greater than 96 Consecutive Hours (ICD-10-PCS; principal; 2019-04-20)
PROC: 0BH18EZ Insertion of Endotracheal Airway into Trachea, Via Natural or Artificial Opening Endoscopic (ICD-10-PCS; 2019-04-20)
PROC: 06HY33Z Insertion of Infusion Device into Lower Vein, Percutaneous Approach (ICD-10-PCS; 2019-04-20)
PROC: 5A1D70Z Performance of Urinary Filtration, Intermittent, Less than 6 Hours Per Day (ICD-10-PCS; 2019-04-20)
PROC: 5A1D70Z Performance of Urinary Filtration, Intermittent, Less than 6 Hours Per Day (ICD-10-PCS; 2019-04-22)
PROC: 30233N1 Transfusion of Nonautologous Red Blood Cells into Peripheral Vein, Percutaneous Approach (ICD-10-PCS; 2019-04-23)
PROC: 5A1D70Z Performance of Urinary Filtration, Intermittent, Less than 6 Hours Per Day (ICD-10-PCS; 2019-04-24)
PROC: 5A1D70Z Performance of Urinary Filtration, Intermittent, Less than 6 Hours Per Day (ICD-10-PCS; 2019-04-27)
PROC: 4A10X4Z Monitoring of Central Nervous Electrical Activity, External Approach (ICD-10-PCS; 2019-04-28)
PROC: 5A1935Z Respiratory Ventilation, Less than 24 Consecutive Hours (ICD-10-PCS; 2019-04-28)
PROC: 5A1935Z Respiratory Ventilation, Less than 24 Consecutive Hours (ICD-10-PCS; 2019-04-28)
PROC: 5A09357 Assistance with Respiratory Ventilation, Less than 24 Consecutive Hours, Continuous Positive Airway Pressure (ICD-10-PCS; 2019-04-29)
PROC: 5A1D70Z Performance of Urinary Filtration, Intermittent, Less than 6 Hours Per Day (ICD-10-PCS; 2019-04-29)
PROC: 5A09357 Assistance with Respiratory Ventilation, Less than 24 Consecutive Hours, Continuous Positive Airway Pressure (ICD-10-PCS; 2019-04-30)
PROC: 5A09357 Assistance with Respiratory Ventilation, Less than 24 Consecutive Hours, Continuous Positive Airway Pressure (ICD-10-PCS; 2019-05-01)
PROC: 5A1D70Z Performance of Urinary Filtration, Intermittent, Less than 6 Hours Per Day (ICD-10-PCS; 2019-05-01)
PROC: 5A1D70Z Performance of Urinary Filtration, Intermittent, Less than 6 Hours Per Day (ICD-10-PCS; 2019-05-04)
DX: A41.9 Sepsis, unspecified organism (principal); I63.9 Cerebral infarction, unspecified; R65.21 Severe sepsis with septic shock; N18.6 End stage renal disease; J96.00 Acute respiratory failure, unspecified whether with hypoxia or hypercapnia; J69.0 Pneumonitis due to inhalation of food and vomit; G92 Toxic encephalopathy; I69.351 Hemiplegia and hemiparesis following cerebral infarction affecting right dominant side; E44.1 Mild protein-calorie malnutrition; E87.1 Hypo-osmolality and hyponatremia; E87.2 Acidosis; K92.2 Gastrointestinal hemorrhage, unspecified; I13.2 Hypertensive heart and chronic kidney disease with heart failure and with stage 5 chronic kidney disease, or end stage renal disease; K86.1 Other chronic pancreatitis; Z99.11 Dependence on respirator [ventilator] status; D62 Acute posthemorrhagic anemia; E87.5 Hyperkalemia; E03.9 Hypothyroidism, unspecified; D63.8 Anemia in other chronic diseases classified elsewhere; E16.2 Hypoglycemia, unspecified; E78.00 Pure hypercholesterolemia, unspecified; E78.5 Hyperlipidemia, unspecified; I50.9 Heart failure, unspecified; L98.419 Non-pressure chronic ulcer of buttock with unspecified severity; R13.10 Dysphagia, unspecified; R47.02 Dysphasia; K21.9 Gastro-esophageal reflux disease without esophagitis; R26.89 Other abnormalities of gait and mobility; L89.526 Pressure-induced deep tissue damage of left ankle; L89.516 Pressure-induced deep tissue damage of right ankle; I69.320 Aphasia following cerebral infarction; Z99.2 Dependence on renal dialysis; Z87.11 Personal history of peptic ulcer disease; Z72.0 Tobacco use; Z72.89 Other problems related to lifestyle; Z78.1 Physical restraint status; Z68.25 Body mass index [BMI] 25.0-25.9, adult
CPT/HCPCS: 31500; 36415; 36600; 70551; 71045; 80048; 80051; 80053; 80061; 80076; 80202; 80307; 80320; 81400; 81403; 81407; 81479; 82375; 82550; 82553; 82607; 82746; 82805; 82962; 83036; 83605; 83735; 83880; 84145; 84439; 84443; 84481; 84484; 85025; 85300; 85303; 85306; 85613; 85651; 85732; 86140; 86147; 86850; 86900; 86920; 87070; 92610; 93005; 93306; 93880; 93970; 94002; 94003; 94640; 94660; 94667; 97162; 97166; 97530; 99291; C9113; J0610; J0696; J0885; J1644; J1650; J2060; J2185; J2250; J2370; J2543; J2765; J3010; J3370; J3490; J7030; J7050; J7060; P9016; P9047; G0480

== ENCOUNTER 2019-05-05 15:37 | Inpatient (IN) | payer MEDICARE ==
[~2019-05-05] VITALS: Ht 172.7 cm; Wt 75.7 kg
[2019-05-05] MEDS: IPRATROPIUM/ALBUTEROL 0.5-3(2.5)MG/3ML NEB HHN SCH (02:50)
[2019-05-05 16:00] VITALS: BP 110/59
[2019-05-05 16:53] VITALS: BP 110/59
[2019-05-05] MEDS ORDERED: GUAIFENESIN 200MG/10ML SUGAR FREE UDC PO PRN (17:00)
[2019-05-05] MEDS ORDERED: ACETAMINOPHEN 325MG TABLET PO PRN (17:00)
[2019-05-05] MEDS ORDERED: NITROGLYCERIN 0.4MG TABLET SL SL PRN (17:00)
[2019-05-05] MEDS ORDERED: MAGNESIUM/ALUMINUM HYDROXIDE/SIMETHICONE 30ML UDC PO PRN (17:00)
[2019-05-05] MEDS ORDERED: IPRATROPIUM/ALBUTEROL 0.5-3(2.5)MG/3ML NEB HHN PRN (17:00)
[2019-05-05] MEDS: MIDODRINE HCL 5MG TABLET PO SCH (17:00)
[2019-05-05] MEDS ORDERED: CLONIDINE 0.1MG TABLET PO PRN (17:00)
[2019-05-05] MEDS ORDERED: ONDANSETRON HCL 4MG/2ML INJ IV PRN (17:00)
[2019-05-05] MEDS: SEVELAMER CARBONATE 800 MG TABLET PO SCH (18:13)
[2019-05-05] MEDS: VANCOMYCIN HCL 1000 MG/20 ML ORAL PO SCH (18:13)
[2019-05-05 20:00] VITALS: BP 129/54
[2019-05-05] MEDS ORDERED: CEFTRIAXONE 2 G in DEXTROSE 5% WATER 50 ML IV SCH (21:00)
[2019-05-05] MEDS: HEPARIN 5000 UNITS/ML VIAL SUBCUT SCH (22:44)
[2019-05-06] MEDS: VANCOMYCIN HCL 1000 MG/20 ML ORAL PO SCH ×2 (02:07→07:30)
[2019-05-06 07:03] LABS: HEMATOCRIT. 28.4 % (42.0-52.0); HEMOGLOBIN. 8.7 g/dL (14.0-18.0); MEAN CORPUSCULAR HEMOGLOBIN 24.4 pg (28.0-32.0); MEAN CORPUSCULAR VOLUME 79.7 fL (80.0-94.0); MEAN PLATELET VOLUME 7.6 fl (7.4-10.4); PLATELET 671 x1000/uL (130-400); RED BLOOD CELL COUNT 3.57 mill/uL (4.7-6.1); RED CELL DISTRIBUTION WIDTH 19.3 % (11.6-14.6)
[2019-05-06 07:10] LABS: CHLORIDE 107 mEq/L (98-107)
[2019-05-06] MEDS: HEPARIN 5000 UNITS/ML VIAL SUBCUT SCH ×3 (07:19→23:10)
[2019-05-06] MEDS: LEVOTHYROXINE SODIUM 100MCG TABLET PO SCH (07:19)
[2019-05-06 08:00] VITALS: BP 95/52
[2019-05-06] MEDS: DOCUSATE SODIUM 100MG CAPSULE PO SCH (08:45)
[2019-05-06] MEDS: SEVELAMER CARBONATE 800 MG TABLET PO SCH ×3 (08:45→17:33)
[2019-05-06] MEDS: MIDODRINE HCL 5MG TABLET PO SCH ×3 (08:46→17:33)
[2019-05-06] MEDS ORDERED: PANTOPRAZOLE SODIUM 40 MG/VIAL IV SCH (09:00)
[2019-05-06] MEDS ORDERED: OXYCODONE HCL 5MG TABLET PO PRN (11:00)
[2019-05-06 11:42] LABS: PLATELET ESTIMATE INCREASED
[2019-05-06] MEDS ORDERED: LEVOFLOXACIN 500MG TABLET PO NR (15:00)
[2019-05-06] MEDS ORDERED: VANCOMYCIN 1 G PREMIX 200 ML IV NR (17:00)
[2019-05-06 20:00] VITALS: BP 119/59
[2019-05-06] MEDS ORDERED: VANCOMYCIN 1 G PREMIX 200 ML IV SCH (21:30)
[2019-05-06] MEDS: EPOETIN ALFA 10000UNITS/ML VIAL SUBCUT SCH (23:09)
[2019-05-07] VITALS (13 sets, daily range): BP systolic 95–109; BP diastolic 43–57
[2019-05-07] MEDS: CEFTRIAXONE 2 G in DEXTROSE 5% WATER 50 ML IV SCH ×2 (00:12→21:14)
[2019-05-07] MEDS: HEPARIN 5000 UNITS/ML VIAL SUBCUT SCH ×3 (06:00→21:14)
[2019-05-07] MEDS: LEVOTHYROXINE SODIUM 100MCG TABLET PO SCH (06:27)
[2019-05-07 06:47] LABS: HEMATOCRIT. 27.7 % (42.0-52.0); HEMOGLOBIN. 8.5 g/dL (14.0-18.0); MEAN CORPUSCULAR HEMOGLOBIN 24.6 pg (28.0-32.0); MEAN CORPUSCULAR VOLUME 80.1 fL (80.0-94.0); MEAN PLATELET VOLUME 7.9 fl (7.4-10.4); PLATELET 613 x1000/uL (130-400); RED BLOOD CELL COUNT 3.46 mill/uL (4.7-6.1); RED CELL DISTRIBUTION WIDTH 19.3 % (11.6-14.6)
[2019-05-07 07:13] LABS: CHLORIDE 109 mEq/L (98-107)
[2019-05-07 07:24] LABS: PHOSPHORUS 4.1 mg/dL (2.5-4.9)
[2019-05-07] MEDS: DOCUSATE SODIUM 100MG CAPSULE PO SCH (08:37)
[2019-05-07] MEDS: MIDODRINE HCL 5MG TABLET PO SCH ×3 (08:38→17:17)
[2019-05-07] MEDS: SEVELAMER CARBONATE 800 MG TABLET PO SCH ×3 (08:40→17:16)
[2019-05-07 09:06] LABS: PLATELET ESTIMATE INCREASED
[2019-05-07] MEDS ORDERED: SODIUM BICARBONATE 4% (2.4MEQ) 5ML VIAL IV ONE (09:08)
[2019-05-07] MEDS ORDERED: IOHEXOL-300 100 ML BOTTLE ONE (09:08)
[2019-05-07] MEDS ORDERED: LIDOCAINE HCL 1% 20ML VIAL (Pyxis) INJ ONE (09:09)
[2019-05-07] MEDS ORDERED: IOHEXOL-300 50 ML BOTTLE IV ONE (09:31)
[2019-05-08] MEDS: HEPARIN 5000 UNITS/ML VIAL SUBCUT SCH ×2 (05:59→13:09)
[2019-05-08] MEDS: LEVOTHYROXINE SODIUM 100MCG TABLET PO SCH (06:00)
[2019-05-08 07:00] VITALS: BP 107/57
[2019-05-08] MEDS: DOCUSATE SODIUM 100MG CAPSULE PO SCH (08:20)
[2019-05-08] MEDS: SEVELAMER CARBONATE 800 MG TABLET PO SCH ×3 (08:21→17:25)
[2019-05-08] MEDS: MIDODRINE HCL 5MG TABLET PO SCH ×3 (08:21→21:15)
[2019-05-08] MEDS ORDERED: LEVOFLOXACIN 250MG TABLET PO SCH (11:00)
[2019-05-08 13:00] VITALS: BP 106/73
[2019-05-08 16:20] VITALS: BP 86/40
[2019-05-08 20:00] VITALS: BP 97/52
[2019-05-09] MEDS: CEFTRIAXONE 2 G in DEXTROSE 5% WATER 50 ML IV SCH ×2 (04:17→21:29)
[2019-05-09] MEDS: HEPARIN 5000 UNITS/ML VIAL SUBCUT SCH ×4 (04:18→21:29)
[2019-05-09] MEDS: EPOETIN ALFA 10000UNITS/ML VIAL SUBCUT SCH (04:18)
[2019-05-09 04:30] VITALS: BP 90/35
[2019-05-09] MEDS: MIDODRINE HCL 5MG TABLET PO SCH ×3 (05:57→21:29)
[2019-05-09] MEDS: LEVOTHYROXINE SODIUM 100MCG TABLET PO SCH (06:00)
[2019-05-09 08:23] VITALS: BP 86/43
[2019-05-09] MEDS: DOCUSATE SODIUM 100MG CAPSULE PO SCH (09:00)
[2019-05-09] MEDS: SEVELAMER CARBONATE 800 MG TABLET PO SCH ×3 (09:15→17:30)
[2019-05-09 20:00] VITALS: BP 102/49
[2019-05-09] MEDS ORDERED: SEVELAMER CARBONATE 800 MG TABLET PO PRN (21:45)
[2019-05-09] MEDS ORDERED: SEVE800T8 PO ×2 (21:55)
[2019-05-10] MEDS: MIDODRINE HCL 5MG TABLET PO SCH ×3 (05:39→21:03)
[2019-05-10] MEDS: HEPARIN 5000 UNITS/ML VIAL SUBCUT SCH ×3 (05:39→21:03)
[2019-05-10] MEDS: LEVOTHYROXINE SODIUM 100MCG TABLET PO SCH (06:02)
[2019-05-10 06:54] LABS: HEMATOCRIT. 28.1 % (42.0-52.0); HEMOGLOBIN. 8.6 g/dL (14.0-18.0); MEAN CORPUSCULAR HEMOGLOBIN 24.5 pg (28.0-32.0); MEAN CORPUSCULAR VOLUME 79.8 fL (80.0-94.0); MEAN PLATELET VOLUME 7.8 fl (7.4-10.4); PLATELET 579 x1000/uL (130-400); RED BLOOD CELL COUNT 3.52 mill/uL (4.7-6.1); RED CELL DISTRIBUTION WIDTH 19.2 % (11.6-14.6)
[2019-05-10 07:00] VITALS: BP 107/55
[2019-05-10] MEDS: SEVELAMER CARBONATE 800 MG TABLET PO SCH ×3 (08:11→17:00)
[2019-05-10 08:53] LABS: NUCLEATED RED BLOOD CELLS 2 /100 WBC; PLATELET ESTIMATE INCREASED
[2019-05-10] MEDS: DOCUSATE SODIUM 100MG CAPSULE PO SCH (09:00)
[2019-05-10 13:15] VITALS: BP 113/56
[2019-05-10] MEDS: IPRATROPIUM/ALBUTEROL 0.5-3(2.5)MG/3ML NEB HHN SCH (17:04)
[2019-05-10 20:00] VITALS: BP 120/76
[2019-05-10] MEDS: CEFTRIAXONE 2 G in DEXTROSE 5% WATER 50 ML IV SCH (21:02)
[2019-05-11] MEDS: HEPARIN 5000 UNITS/ML VIAL SUBCUT SCH ×3 (06:03→21:17)
[2019-05-11] MEDS: LEVOTHYROXINE SODIUM 100MCG TABLET PO SCH (06:04)
[2019-05-11] MEDS: MIDODRINE HCL 5MG TABLET PO SCH ×3 (06:04→21:18)
[2019-05-11 07:06] LABS: 25-HYDROXY VITAMIN D3 12 ng/mL (.)
[2019-05-11 08:00] VITALS: BP 144/66
[2019-05-11] MEDS: SEVELAMER CARBONATE 800 MG TABLET PO SCH ×3 (09:00→17:00)
[2019-05-11] MEDS: DOCUSATE SODIUM 100MG CAPSULE PO SCH (09:00)
[2019-05-11] MEDS ORDERED: TUBERCULIN,PURIF.PROT.DERIV. 5 TU/0.1 ML SYR ID ONE (09:45)
[2019-05-11] MEDS: ERGOCALCIFEROL 50000UNITS CAPSULE PO SCH (16:11)
[2019-05-11] MEDS: PARICALCITOL 2 MCG/ML VIAL IV SCH (19:49)
[2019-05-11 20:00] VITALS: BP 118/56
[2019-05-11] MEDS ORDERED: VANCOMYCIN HCL 750 MG in DEXT 5% WATER 250 ML IV NR (20:00)
[2019-05-11] MEDS: EPOETIN ALFA 10000UNITS/ML VIAL SUBCUT SCH (21:18)
[2019-05-11] MEDS: CEFTRIAXONE 2 G in DEXTROSE 5% WATER 50 ML IV SCH (21:18)
[2019-05-11 23:09] VITALS: BP 118/56
[2019-05-12] MEDS: HEPARIN 5000 UNITS/ML VIAL SUBCUT SCH ×3 (06:17→21:30)
[2019-05-12] MEDS: MIDODRINE HCL 5MG TABLET PO SCH ×3 (06:17→21:31)
[2019-05-12] MEDS: LEVOTHYROXINE SODIUM 100MCG TABLET PO SCH (06:32)
[2019-05-12] MEDS ORDERED: LEVOTHYROXINE SODIUM 125MCG TABLET PO SCH (07:45)
[2019-05-12] MEDS ORDERED: LEVOTHYROXINE SODIUM 25MCG TABLET PO SCH (07:45)
[2019-05-12 08:00] VITALS: BP 82/53
[2019-05-12] MEDS: LACTOBACILLUS GG CAPSULE PO SCH (08:30)
[2019-05-12] MEDS: DOCUSATE SODIUM 100MG CAPSULE PO SCH (08:31)
[2019-05-12] MEDS: SEVELAMER CARBONATE 800 MG TABLET PO SCH ×3 (08:31→18:22)
[2019-05-12] MEDS: CEFTRIAXONE 2 G in DEXTROSE 5% WATER 50 ML IV SCH (21:30)
[2019-05-13] MEDS: HEPARIN 5000 UNITS/ML VIAL SUBCUT SCH ×3 (06:50→21:02)
[2019-05-13] MEDS: LEVOTHYROXINE SODIUM 125MCG TABLET PO SCH (06:51)
[2019-05-13] MEDS: MIDODRINE HCL 5MG TABLET PO SCH ×3 (06:58→21:02)
[2019-05-13 07:18] LABS: HEMATOCRIT. 27.8 % (42.0-52.0); HEMOGLOBIN. 8.7 g/dL (14.0-18.0); MEAN CORPUSCULAR HEMOGLOBIN 24.7 pg (28.0-32.0); MEAN CORPUSCULAR VOLUME 78.9 fL (80.0-94.0); MEAN PLATELET VOLUME 7.8 fl (7.4-10.4); PLATELET 511 x1000/uL (130-400); RED BLOOD CELL COUNT 3.53 mill/uL (4.7-6.1); RED CELL DISTRIBUTION WIDTH 19.9 % (11.6-14.6)
[2019-05-13 08:00] VITALS: BP 82/53
[2019-05-13] MEDS: DOCUSATE SODIUM 100MG CAPSULE PO SCH (09:08)
[2019-05-13] MEDS: LACTOBACILLUS GG CAPSULE PO SCH (09:08)
[2019-05-13] MEDS: SEVELAMER CARBONATE 800 MG TABLET PO SCH ×3 (09:08→17:00)
[2019-05-13 10:07] LABS: NUCLEATED RED BLOOD CELLS 1 /100 WBC; PLATELET ESTIMATE INCREASED
[2019-05-13] MEDS: PARICALCITOL 2 MCG/ML VIAL IV SCH (13:24)
[2019-05-13 13:37] VITALS: BP 109/52
[2019-05-13 20:00] VITALS: BP 102/51
[2019-05-13] MEDS ORDERED: EPOETIN ALFA 4000UNITS/ML VIAL SUBCUT SCH (21:00)
[2019-05-13] MEDS: CEFTRIAXONE 2 G in DEXTROSE 5% WATER 50 ML IV SCH (21:01)
[2019-05-14] MEDS: MIDODRINE HCL 5MG TABLET PO SCH ×3 (06:03→21:01)
[2019-05-14] MEDS: LEVOTHYROXINE SODIUM 125MCG TABLET PO SCH (06:03)
[2019-05-14] MEDS: HEPARIN 5000 UNITS/ML VIAL SUBCUT SCH ×3 (06:03→21:01)
[2019-05-14 07:00] VITALS: BP 95/60
[2019-05-14] MEDS: SEVELAMER CARBONATE 800 MG TABLET PO SCH ×3 (08:30→17:00)
[2019-05-14] MEDS: LACTOBACILLUS GG CAPSULE PO SCH (08:30)
[2019-05-14] MEDS: DOCUSATE SODIUM 100MG CAPSULE PO SCH (08:30)
[2019-05-14 12:55] VITALS: BP 126/69
[2019-05-14 20:00] VITALS: BP 118/51
[2019-05-14] MEDS: CEFTRIAXONE 2 G in DEXTROSE 5% WATER 50 ML IV SCH (21:01)
[2019-05-15] MEDS: HEPARIN 5000 UNITS/ML VIAL SUBCUT SCH ×3 (05:20→21:09)
[2019-05-15] MEDS: MIDODRINE HCL 5MG TABLET PO SCH ×3 (05:26→21:10)
[2019-05-15] MEDS: LEVOTHYROXINE SODIUM 125MCG TABLET PO SCH (06:03)
[2019-05-15 08:00] VITALS: BP 106/58
[2019-05-15] MEDS: SEVELAMER CARBONATE 800 MG TABLET PO SCH ×3 (08:17→17:57)
[2019-05-15] MEDS: DOCUSATE SODIUM 100MG CAPSULE PO SCH (08:17)
[2019-05-15] MEDS: LACTOBACILLUS GG CAPSULE PO SCH (08:17)
[2019-05-15] MEDS: PARICALCITOL 2 MCG/ML VIAL IV SCH (09:00)
[2019-05-15] MEDS ORDERED: VANCOMYCIN 750 MG in DEXT 5% WATER 250 ML IV SCH (14:00)
[2019-05-15 20:00] VITALS: BP 111/62
[2019-05-15] MEDS ORDERED: EPOETIN ALFA 4000UNITS/ML VIAL SUBCUT SCH ×2 (21:00)
[2019-05-16] MEDS: CEFTRIAXONE 2 G in DEXTROSE 5% WATER 50 ML IV SCH ×2 (01:14→21:13)
[2019-05-16] MEDS: HEPARIN 5000 UNITS/ML VIAL SUBCUT SCH ×3 (06:00→21:10)
[2019-05-16] MEDS: LEVOTHYROXINE SODIUM 125MCG TABLET PO SCH (06:28)
[2019-05-16] MEDS: MIDODRINE HCL 5MG TABLET PO SCH ×3 (06:29→21:14)
[2019-05-16 08:18] VITALS: BP 110/63
[2019-05-16] MEDS: SEVELAMER CARBONATE 800 MG TABLET PO SCH ×4 (08:37→16:56)
[2019-05-16] MEDS: LACTOBACILLUS GG CAPSULE PO SCH (08:37)
[2019-05-16] MEDS: DOCUSATE SODIUM 100MG CAPSULE PO SCH (08:41)
[2019-05-16] MEDS ORDERED: PARICALCITOL 5 MCG/ML 1ML IV NR (12:00)
[2019-05-16 20:00] VITALS: BP 124/57
[2019-05-17] MEDS: HEPARIN 5000 UNITS/ML VIAL SUBCUT SCH ×3 (06:00→21:18)
[2019-05-17] MEDS: LEVOTHYROXINE SODIUM 125MCG TABLET PO SCH (06:32)
[2019-05-17] MEDS: MIDODRINE HCL 5MG TABLET PO SCH ×3 (06:32→21:21)
[2019-05-17 06:38] LABS: HEMATOCRIT. 30.4 % (42.0-52.0); HEMOGLOBIN. 9.3 g/dL (14.0-18.0); MEAN CORPUSCULAR HEMOGLOBIN 24.4 pg (28.0-32.0); MEAN CORPUSCULAR VOLUME 79.4 fL (80.0-94.0); PLATELET 474 x1000/uL (130-400); RED BLOOD CELL COUNT 3.83 mill/uL (4.7-6.1); RED CELL DISTRIBUTION WIDTH 20.1 % (11.6-14.6)
[2019-05-17 06:55] LABS: CHLORIDE 105 mEq/L (98-107)
[2019-05-17] MEDS ORDERED: LIDOCAINE HCL 1% 20ML VIAL (Pyxis) INJ ONE (07:37)
[2019-05-17 08:00] VITALS: BP 108/43
[2019-05-17] MEDS: DOCUSATE SODIUM 100MG CAPSULE PO SCH (09:00)
[2019-05-17] MEDS: SEVELAMER CARBONATE 800 MG TABLET PO SCH ×3 (09:00→16:12)
[2019-05-17] MEDS: LACTOBACILLUS GG CAPSULE PO SCH (09:32)
[2019-05-17 12:30] LABS: PLATELET ESTIMATE SLIGHTLY INCREASED
[2019-05-17 20:00] VITALS: BP 116/35
[2019-05-17] MEDS: CEFTRIAXONE 2 G in DEXTROSE 5% WATER 50 ML IV SCH (21:22)
[2019-05-18] VITALS (15 sets, daily range): BP systolic 105–135; BP diastolic 52–78
[2019-05-18] MEDS: HEPARIN 5000 UNITS/ML VIAL SUBCUT SCH ×3 (06:00→21:47)
[2019-05-18] MEDS: LEVOTHYROXINE SODIUM 125MCG TABLET PO SCH (06:21)
[2019-05-18] MEDS: MIDODRINE HCL 5MG TABLET PO SCH ×3 (06:22→21:48)
[2019-05-18] MEDS ORDERED: LEVOTHYROXINE SODIUM 25MCG TABLET PO SCH (07:30)
[2019-05-18] MEDS: DOCUSATE SODIUM 100MG CAPSULE PO SCH (08:06)
[2019-05-18] MEDS: ERGOCALCIFEROL 50000UNITS CAPSULE PO SCH (08:06)
[2019-05-18] MEDS: LACTOBACILLUS GG CAPSULE PO SCH (08:06)
[2019-05-18] MEDS: SEVELAMER CARBONATE 800 MG TABLET PO SCH ×3 (08:07→17:16)
[2019-05-18] MEDS: PARICALCITOL 2 MCG/ML VIAL IV SCH (08:08)
[2019-05-18 08:45] LABS: INR 1.1; PROTHROMBIN TIME 12.3 sec (9.6-11.0)
[2019-05-18] MEDS ORDERED: IOHEXOL-300 100 ML BOTTLE ONE (08:56)
[2019-05-18] MEDS ORDERED: LIDOCAINE HCL 1% 20ML VIAL (Pyxis) INJ ONE (08:56)
[2019-05-18] MEDS ORDERED: SODIUM BICARBONATE 4% (2.4MEQ) 5ML VIAL IV ONE (08:56)
[2019-05-18] MEDS ORDERED: FENTANYL CITRATE/PF 50MCG/ML 2ML VIAL ONE (10:14)
[2019-05-18] MEDS ORDERED: HEPARIN 1000 UNITS/ML 10ML ONE (10:41)
[2019-05-18] MEDS ORDERED: FENTANYL CITRATE/PF 50MCG/ML 2ML VIAL IV SCH (11:15)
[2019-05-18] MEDS ORDERED: VANCOMYCIN HCL 750 MG in DEXT 5% WATER 250 ML IV NR (15:00)
[2019-05-18] MEDS ORDERED: EPOETIN ALFA 4000UNITS/ML VIAL SUBCUT SCH (21:00)
[2019-05-18] MEDS: CEFTRIAXONE 2 G in DEXTROSE 5% WATER 50 ML IV SCH (21:00)
[2019-05-19] MEDS: MIDODRINE HCL 5MG TABLET PO SCH (06:34)
[2019-05-19] MEDS: HEPARIN 5000 UNITS/ML VIAL SUBCUT SCH (06:36)
[2019-05-19] MEDS ORDERED: LEVOTHYROXINE SODIUM 150MCG TABLET PO SCH (07:00)
[2019-05-19 08:00] VITALS: BP 110/64
[2019-05-19] MEDS: LACTOBACILLUS GG CAPSULE PO SCH (08:29)
[2019-05-19] MEDS: SEVELAMER CARBONATE 800 MG TABLET PO SCH (08:29)
[2019-05-19] MEDS: DOCUSATE SODIUM 100MG CAPSULE PO SCH (08:30)
== END 2019-05-19 11:41 | disposition left against medical advice (07) | DRG 70 ==
PROVIDERS: ADMIT Physical Medicine & Rehabilitation Spinal Cord Injury Medicine; ATTEND Internal Medicine
DX: G93.40 Encephalopathy, unspecified (principal); I63.512 Cerebral infarction due to unspecified occlusion or stenosis of left middle cerebral artery; A41.9 Sepsis, unspecified organism; N18.6 End stage renal disease; R65.21 Severe sepsis with septic shock; J69.0 Pneumonitis due to inhalation of food and vomit; J96.00 Acute respiratory failure, unspecified whether with hypoxia or hypercapnia; D68.59 Other primary thrombophilia; E44.0 Moderate protein-calorie malnutrition; I12.0 Hypertensive chronic kidney disease with stage 5 chronic kidney disease or end stage renal disease; I69.351 Hemiplegia and hemiparesis following cerebral infarction affecting right dominant side; I82.411 Acute embolism and thrombosis of right femoral vein; K86.1 Other chronic pancreatitis; Z99.11 Dependence on respirator [ventilator] status; R47.01 Aphasia; D63.8 Anemia in other chronic diseases classified elsewhere; D72.828 Other elevated white blood cell count; E03.9 Hypothyroidism, unspecified; E78.5 Hyperlipidemia, unspecified; F19.90 Other psychoactive substance use, unspecified, uncomplicated; Z99.2 Dependence on renal dialysis; K27.9 Peptic ulcer, site unspecified, unspecified as acute or chronic, without hemorrhage or perforation; L89.90 Pressure ulcer of unspecified site, unspecified stage; L97.519 Non-pressure chronic ulcer of other part of right foot with unspecified severity; R13.10 Dysphagia, unspecified; Z74.01 Bed confinement status; Z87.01 Personal history of pneumonia (recurrent); Z95.828 Presence of other vascular implants and grafts
CPT/HCPCS: 36415; 36901; 36904; 37191; 76937; 77001; 80048; 80053; 80202; 82306; 82962; 83735; 84100; 84134; 84443; 85025; 86803; 90585; 92523; 92610; 93970; 94640; 97110; 97112; 97116; 97162; 97167; 97530; 97535; 99152; 99153; C1725; C1752; C1766; C1769; C1880; C2630; C9113; J0696; J0885; J1642; J1644; J2501; J3010; J3370; J3490; J7060; Q9967; G0500

== ENCOUNTER 2019-05-26 08:03 | Inpatient (IN) | payer MEDICARE, OTHER ==
[~2019-05-26] VITALS: Ht 162.6 cm; Wt 75.3 kg
[~2019-05-26 08:03] MED LIST changes: +SEVE800T8 PO
[2019-05-26] MEDS ORDERED: LIDOCAINE HCL 1% 20ML VIAL (Pyxis) INJ ONE (08:59)
[2019-05-26] MEDS ORDERED: THROMBIN (BOVINE) 5000 UNITS/VIAL TOP ONE (08:59)
[2019-05-26] MEDS ORDERED: BACITRACIN 15GM TUBE TOP ONE (08:59)
[2019-05-26] MEDS ORDERED: BACITRACIN 50,000 UNITS/VIAL ONE (09:00)
[2019-05-26] MEDS ORDERED: HEPARIN SODIUM 1,000 UNIT/1ML VIAL IV ONE (09:00)
[2019-05-26] MEDS ORDERED: BUPIVACAINE HCL/PF 0.5% (5MG/ML) 10ML ONE (09:00)
[2019-05-26] MEDS ORDERED: SODIUM CHLORIDE 0.9% 10ML VIAL ONE (09:01)
[2019-05-26 09:30] LABS: HEMATOCRIT. 34.8 % (42.0-52.0); HEMOGLOBIN. 10.8 g/dL (14.0-18.0); MEAN CORPUSCULAR HEMOGLOBIN 24.5 pg (28.0-32.0); MEAN CORPUSCULAR VOLUME 79.4 fL (80.0-94.0); MEAN PLATELET VOLUME 8.3 fl (7.4-10.4); PLATELET 212 x1000/uL (130-400); RED BLOOD CELL COUNT 4.39 mill/uL (4.7-6.1); RED CELL DISTRIBUTION WIDTH 19.7 % (11.6-14.6)
[2019-05-26 09:36] LABS: INR 1.1; PROTHROMBIN TIME 12.1 sec (9.6-11.0)
[2019-05-26] MEDS ORDERED: SODIUM CHLORIDE 0.9% 500 ML IV ONE (09:45)
[2019-05-26 09:52] LABS: PLATELET ESTIMATE NORMAL
[2019-05-26] MEDS ORDERED: FENTANYL CITRATE/PF 50MCG/ML 2ML VIAL ONE (10:00)
[2019-05-26] MEDS ORDERED: PROPOFOL 200MG/20ML VIAL IV ONE (10:00)
[2019-05-26] MEDS ORDERED: MIDAZOLAM HCL 2 MG/2 ML VIAL ONE (10:00)
[2019-05-26] MEDS ORDERED: LEVO25TA7 PO (10:03)
[2019-05-26] MEDS ORDERED: AMI2 PO (10:04)
[2019-05-26] MEDS ORDERED: ROCURONIUM BROMIDE 10MG/ML VIAL 5ML IV ONE (10:35)
[2019-05-26] MEDS ORDERED: SUCCINYLCHOLINE CHLORIDE 200MG/10ML IV ONE (10:36)
[2019-05-26] MEDS ORDERED: HEPARIN 1000 UNITS/ML 10ML ONE (10:39)
[2019-05-26] MEDS ORDERED: ALBUTEROL 90MCG/PUFF 17GM INHALER INH ONE (10:47)
[2019-05-26 11:11] LABS: BG BASE EXCESS -2.9 mmol/L (-2.0-2.0); BG CARBOXYHEMOGLOBIN 0.4 % (0.5-1.5); BG DEOXYHEMOGLOBIN 0.5 % (0.0-5.0); BG HCO3 ACT 27.8 mmol/L (22.0-26.0); BG METHEMOGLOBIN 0.4 % (0.0-1.5); BG OXYGEN SATURATION 99.5 % (92.0-98.5); BG OXYHEMOGLOBIN 98.7 % (94.0-97.0); BG PH 7.122 (7.350-7.450); BG PO2 263.8 mmHg (75.0-100.0); BG SAMPLE SITE A-LINE; BG TOTAL HEMOGLOBIN 10.8 g/dL (12.0-18.0); BG VENT MODE VENT - A/C
[2019-05-26] MEDS ORDERED: IPRATROPIUM/ALBUTEROL 0.5-3(2.5)MG/3ML NEB HHN NR (11:45)
[2019-05-26 12:02] LABS: BG BASE EXCESS -5.6 mmol/L (-2.0-2.0); BG CARBOXYHEMOGLOBIN 0.8 % (0.5-1.5); BG DEOXYHEMOGLOBIN 1.4 % (0.0-5.0); BG HCO3 ACT 21.2 mmol/L (22.0-26.0); BG METHEMOGLOBIN 0.3 % (0.0-1.5); BG OXYGEN SATURATION 98.6 % (92.0-98.5); BG OXYHEMOGLOBIN 97.5 % (94.0-97.0); BG PCO2 47.3 mmHg (35.0-45.0); BG PH 7.269 (7.350-7.450); BG PO2 140.3 mmHg (75.0-100.0); BG SAMPLE SITE RIGHT BRACHIAL; BG TOTAL HEMOGLOBIN 10.6 g/dL (12.0-18.0)
[2019-05-26] MEDS ORDERED: ONDANSETRON HCL 4MG/2ML INJ IV PRN (12:15)
[2019-05-26] MEDS ORDERED: ACETAMINOPHEN 325MG TABLET PO PRN (12:15)
[2019-05-26] MEDS ORDERED: DOCUSATE SODIUM 100MG CAPSULE PO PRN (12:15)
[2019-05-26] MEDS ORDERED: MAGNESIUM/ALUMINUM HYDROXIDE/SIMETHICONE 30ML UDC PO PRN (12:15)
[2019-05-26] MEDS ORDERED: CLONIDINE 0.1MG TABLET PO PRN (12:15)
[2019-05-26] MEDS ORDERED: ZOLPIDEM TARTRATE 5MG TABLET PO PRN ×2 (12:15→21:00)
[2019-05-26] MEDS ORDERED: MORPHINE SULFATE 4 MG/ML CPJ (NOT FOR IM USE) IV PRN (12:15)
[2019-05-26] MEDS ORDERED: GUAIFENESIN 200MG/10ML SUGAR FREE UDC PO PRN (12:15)
[2019-05-26] MEDS ORDERED: IPRATROPIUM/ALBUTEROL 0.5-3(2.5)MG/3ML NEB NEB PRN (12:15)
[2019-05-26] MEDS: IPRATROPIUM/ALBUTEROL 0.5-3(2.5)MG/3ML NEB HHN SCH ×3 (14:40→23:55)
[2019-05-26] MEDS ORDERED: RACEPINEPHRINE 2.25% 0.5ML NEB VIAL HHN PRN (15:15)
[2019-05-26] MEDS ORDERED: RACEPINEPHRINE 2.25% 0.5ML NEB VIAL HHN NR (15:30)
[2019-05-26] MEDS: PANTOPRAZOLE SODIUM 40 MG/VIAL IV SCH (15:31)
[2019-05-26] MEDS: MIDODRINE HCL 5MG TABLET PO SCH ×2 (15:34→21:00)
[2019-05-26] MEDS ORDERED: CEFEPIME 500 MG in DEXTROSE 5% WATER 50 ML IV SCH (19:00)
[2019-05-26] MEDS: METRONIDAZOLE 500 MG PREMIX 100 ML IV SCH (19:00)
[2019-05-26 19:17] VITALS: BP 110/48
[2019-05-26 19:20] VITALS: BP 110/48
[2019-05-26 20:00] VITALS: BP 84/39
[2019-05-26 20:19] LABS: CREATINE KINASE 58 IU/L (39-308)
[2019-05-26 20:21] LABS: CREATINE KINASE MB FRACTION 3.3 ng/mL (0.5-3.6)
[2019-05-26] MEDS: SEVELAMER CARBONATE 800 MG TABLET PO SCH (21:01)
[2019-05-26] MEDS: TRAMADOL 50MG TABLET PO PRN (21:02)
[2019-05-26 22:00] VITALS: BP 97/38
[2019-05-26] MEDS: ACETYLCYSTEINE 100MG/ML 10% VIAL 4ML INH SCH (23:55)
[2019-05-27] VITALS (12 sets, daily range): BP systolic 84–120; BP diastolic 37–84
[2019-05-27] MEDS: IPRATROPIUM/ALBUTEROL 0.5-3(2.5)MG/3ML NEB HHN SCH ×7 (00:22→20:20)
[2019-05-27] MEDS: METRONIDAZOLE 500 MG PREMIX 100 ML IV SCH ×3 (02:16→18:39)
[2019-05-27] MEDS: TRAMADOL 50MG TABLET PO PRN ×2 (06:04→18:47)
[2019-05-27] MEDS: SEVELAMER CARBONATE 800 MG TABLET PO SCH ×3 (06:48→18:39)
[2019-05-27 06:50] LABS: CREATINE KINASE 39 IU/L (39-308)
[2019-05-27] MEDS ORDERED: LEVOTHYROXINE SODIUM 50MCG TABLET PO SCH (06:50)
[2019-05-27 06:52] LABS: CREATINE KINASE MB FRACTION 2.2 ng/mL (0.5-3.6)
[2019-05-27] MEDS ORDERED: LEVOTHYROXINE SODIUM 150MCG TABLET PO SCH (07:15)
[2019-05-27] MEDS: ACETYLCYSTEINE 100MG/ML 10% VIAL 4ML INH SCH ×3 (08:17→20:20)
[2019-05-27] MEDS: PANTOPRAZOLE SODIUM 40 MG/VIAL IV SCH (08:43)
[2019-05-27] MEDS: ENOXAPARIN 30MG/0.3ML SYR SUBCUT SCH (08:44)
[2019-05-27] MEDS: FOLIC ACID/VITAMIN B COMP W-C TABLET PO SCH (08:45)
[2019-05-27] MEDS: MIDODRINE HCL 5MG TABLET PO SCH ×3 (08:46→18:40)
[2019-05-27] MEDS: CLOPIDOGREL 75MG TABLET PO SCH (08:46)
[2019-05-27] MEDS ORDERED: LEVOTHYROXINE SODIUM 100MCG TABLET PO SCH (09:15)
[2019-05-27] MEDS ORDERED: VANCOMYCIN 1,000 MG in DEXT 5% WATER 250 ML IV SCH (10:00)
[2019-05-27] MEDS ORDERED: CEFTRIAXONE 2 G in DEXTROSE 5% WATER 50 ML IV SCH (10:00)
[2019-05-27] MEDS ORDERED: POLYETHYLENE GLYCOL 3350 (17GM) 1 DOSE PACK PO NR (13:00)
[2019-05-27] MEDS: CEFEPIME 1,000 MG in DEXTROSE 5% WATER 50 ML IV SCH (21:38)
[2019-05-28] VITALS (12 sets, daily range): BP systolic 89–131; BP diastolic 42–68
[2019-05-28] MEDS: ACETYLCYSTEINE 100MG/ML 10% VIAL 4ML INH SCH ×3 (01:17→16:41)
[2019-05-28] MEDS: IPRATROPIUM/ALBUTEROL 0.5-3(2.5)MG/3ML NEB HHN SCH ×6 (01:17→20:39)
[2019-05-28] MEDS: METRONIDAZOLE 500 MG PREMIX 100 ML IV SCH ×3 (02:11→17:12)
[2019-05-28] MEDS: SEVELAMER CARBONATE 800 MG TABLET PO SCH ×3 (06:09→17:08)
[2019-05-28] MEDS: LEVOTHYROXINE SODIUM 150MCG TABLET PO SCH (06:09)
[2019-05-28] MEDS: TRAMADOL 50MG TABLET PO PRN ×2 (06:35→16:06)
[2019-05-28 06:42] LABS: HEMATOCRIT. 28.9 % (42.0-52.0); HEMOGLOBIN. 8.8 g/dL (14.0-18.0); MEAN CORPUSCULAR HEMOGLOBIN 24.3 pg (28.0-32.0); MEAN CORPUSCULAR VOLUME 79.5 fL (80.0-94.0); MEAN PLATELET VOLUME 8.3 fl (7.4-10.4); PLATELET 227 x1000/uL (130-400); RED BLOOD CELL COUNT 3.63 mill/uL (4.7-6.1); RED CELL DISTRIBUTION WIDTH 19.2 % (11.6-14.6)
[2019-05-28 08:45] LABS: PLATELET ESTIMATE NORMAL
[2019-05-28] MEDS ORDERED: FAMOTIDINE 20MG TABLET PO SCH (09:00)
[2019-05-28] MEDS: ENOXAPARIN 30MG/0.3ML SYR SUBCUT SCH (09:36)
[2019-05-28] MEDS: CLOPIDOGREL 75MG TABLET PO SCH (09:36)
[2019-05-28] MEDS: FOLIC ACID/VITAMIN B COMP W-C TABLET PO SCH (09:36)
[2019-05-28] MEDS: MIDODRINE HCL 5MG TABLET PO SCH ×3 (09:36→17:08)
[2019-05-28] MEDS: CEFEPIME 1,000 MG in DEXTROSE 5% WATER 50 ML IV SCH (21:52)
[2019-05-29] VITALS: BP 105/63
[2019-05-29 02:00] VITALS: BP 104/59
[2019-05-29] MEDS: METRONIDAZOLE 500 MG PREMIX 100 ML IV SCH (03:08)
[2019-05-29 04:00] VITALS: BP 109/60
[2019-05-29] MEDS: IPRATROPIUM/ALBUTEROL 0.5-3(2.5)MG/3ML NEB HHN SCH (04:54)
[2019-05-29 06:00] VITALS: BP 105/60
[2019-05-29] MEDS: LEVOTHYROXINE SODIUM 150MCG TABLET PO SCH (06:37)
[2019-05-29] MEDS: SEVELAMER CARBONATE 800 MG TABLET PO SCH (06:37)
[2019-05-29 07:35] LABS: HEMATOCRIT. 29.7 % (42.0-52.0); HEMOGLOBIN. 9.2 g/dL (14.0-18.0); MEAN CORPUSCULAR HEMOGLOBIN 24.3 pg (28.0-32.0); MEAN CORPUSCULAR VOLUME 78.5 fL (80.0-94.0); MEAN PLATELET VOLUME 8.4 fl (7.4-10.4); PLATELET 286 x1000/uL (130-400); RED BLOOD CELL COUNT 3.78 mill/uL (4.7-6.1); RED CELL DISTRIBUTION WIDTH 19.5 % (11.6-14.6)
[2019-05-29 14:07] LABS: PLATELET ESTIMATE NORMAL
== END 2019-05-29 09:25 | disposition left against medical advice (07) | DRG 252 ==
LOC: OR 08:03 → 3WST 08:04
PROVIDERS: ADMIT Internal Medicine; ATTEND Internal Medicine
PROC: 041L0JS Bypass Left Femoral Artery to Lower Extremity Vein with Synthetic Substitute, Open Approach (ICD-10-PCS; principal; 2019-05-26)
PROC: 5A09357 Assistance with Respiratory Ventilation, Less than 24 Consecutive Hours, Continuous Positive Airway Pressure (ICD-10-PCS; 2019-05-26)
PROC: 5A1D70Z Performance of Urinary Filtration, Intermittent, Less than 6 Hours Per Day (ICD-10-PCS; 2019-05-27)
PROC: 5A1D70Z Performance of Urinary Filtration, Intermittent, Less than 6 Hours Per Day (ICD-10-PCS; 2019-05-28)
DX: T82.858A Stenosis of other vascular prosthetic devices, implants and grafts, initial encounter (principal); J96.01 Acute respiratory failure with hypoxia; N18.6 End stage renal disease; J69.0 Pneumonitis due to inhalation of food and vomit; J96.02 Acute respiratory failure with hypercapnia; I12.0 Hypertensive chronic kidney disease with stage 5 chronic kidney disease or end stage renal disease; E87.2 Acidosis; I69.351 Hemiplegia and hemiparesis following cerebral infarction affecting right dominant side; E03.9 Hypothyroidism, unspecified; R94.31 Abnormal electrocardiogram [ECG] [EKG]; D63.8 Anemia in other chronic diseases classified elsewhere; Z53.29 Procedure and treatment not carried out because of patient's decision for other reasons; Y83.2 Surgical operation with anastomosis, bypass or graft as the cause of abnormal reaction of the patient, or of later complication, without mention of misadventure at the time of the procedure; I95.9 Hypotension, unspecified; Z86.718 Personal history of other venous thrombosis and embolism; Z99.2 Dependence on renal dialysis; I69.320 Aphasia following cerebral infarction; Z86.19 Personal history of other infectious and parasitic diseases; Z87.891 Personal history of nicotine dependence; Y92.89 Other specified places as the place of occurrence of the external cause
CPT/HCPCS: 36415; 36600; 71045; 80048; 82375; 82550; 82553; 82805; 84443; 84484; 85025; 93005; 94640; 94660; 94667; 97161; C1768; C9113; J0330; J0692; J0696; J1644; J1650; J2250; J2704; J3010; J3370; J3490; J7050; J7060; J7608

== ENCOUNTER 2020-10-27 19:36 | Inpatient (IN) | payer MEDICARE, MEDICAID ==
[~2020-10-27] VITALS: Ht 162.6 cm; Wt 60.9 kg
[~2020-10-27 19:36] MED LIST changes: +AMI2 PO; -AMIO150P5 IV; -ATOR10TA MT; +LEVO25TA7 PO; -REN800 PO; -SEVE800T8 MT; -[UNRECOGNIZED DRUG - OTHER]
[2020-10-27 20:52] LABS: HEMATOCRIT. 36.1 % (42.0-52.0); MEAN CORPUSCULAR HEMOGLOBIN 27.7 pg (28.0-32.0); MEAN CORPUSCULAR VOLUME 83.5 fL (80.0-94.0); MEAN PLATELET VOLUME 7.6 fl (7.4-10.4); PLATELET 254 x1000/uL (130-400); RED BLOOD CELL COUNT 4.33 mill/uL (4.7-6.1); RED CELL DISTRIBUTION WIDTH 14.7 % (11.6-14.6)
[2020-10-27 21:04] LABS: CHLORIDE 95 mEq/L (98-107)
[2020-10-27 21:21] LABS: PLATELET ESTIMATE NORMAL
[2020-10-27] MEDS ORDERED: SODIUM CHLORIDE 0.9% 500 ML IV ONE (22:00)
[2020-10-27] MEDS ORDERED: SODIUM CHLORIDE 0.9% 250 ML IV ONE (23:30)
[2020-10-28] VITALS (33 sets, daily range): BP systolic 60–200; BP diastolic 23–103
[2020-10-28] MEDS ORDERED: NOREPINEPHRINE 8 MG in DEXT 5% WATER 242 ML IV PRN (00:15)
[2020-10-28] MEDS ORDERED: VANCOMYCIN 1 G PREMIX 200 ML IV ONE (00:45)
[2020-10-28] MEDS ORDERED: PIPERACILLIN/TAZ 3.375G PREMIX 50 ML IV ONE (00:45)
[2020-10-28] MEDS: NOREPINEPHRINE 8 MG in DEXT 5% WATER 242 ML IV PRN ×2 (02:15→08:51)
[2020-10-28] MEDS ORDERED: ACETAMINOPHEN 325MG TABLET PO PRN (09:30)
[2020-10-28] MEDS ORDERED: ONDANSETRON HCL 4MG/2ML INJ IV PRN (09:30)
[2020-10-28] MEDS: ENOXAPARIN 30MG/0.3ML SYR SUBCUT SCH (10:12)
[2020-10-28] MEDS ORDERED: NOREPINEPHRINE 8MG/250ML PMX 250 ML IV PRN ×3 (11:30→16:30)
[2020-10-28 12:58] LABS: HEMATOCRIT. 39.1 % (42.0-52.0); HEMOGLOBIN. 12.6 g/dL (14.0-18.0); MEAN CORPUSCULAR HEMOGLOBIN 27.4 pg (28.0-32.0); MEAN PLATELET VOLUME 8.1 fl (7.4-10.4); PLATELET 349 x1000/uL (130-400); RED CELL DISTRIBUTION WIDTH 15.2 % (11.6-14.6)
[2020-10-28 13:26] LABS: PLATELET ESTIMATE NORMAL
[2020-10-28 13:31] LABS: HEPATITIS B SURFACE ANTIGEN NEGATIVE
[2020-10-28] MEDS ORDERED: NOREPINEPHRINE 8 MG in DEXTROSE 5% WATER 250 ML IV PRN (16:30)
[2020-10-28] MEDS ORDERED: NOREPINEPHRINE 8MG/250ML PMX 250 ML IV ONE (16:30)
[2020-10-28] MEDS: PIPERACILLIN/TAZOBACTAM 3.375 G in DEXTROSE 5% WATER 50 ML IV SCH (17:24)
[2020-10-28] MEDS ORDERED: PIPERACILLIN/TAZOBACTAM 3.375 G in DEXTROSE 5% WATER 50 ML IV SCH (18:00)
[2020-10-28] MEDS ORDERED: OMEP40CA20 MT (20:24)
[2020-10-28] MEDS: NOREPINEPHRINE 32 MG in DEXT 5% WATER 218 ML IV PRN (20:29)
[2020-10-28] MEDS ORDERED: MIDO5TAB4 PO (20:32)
[2020-10-28] MEDS ORDERED: MIDO2.5T MT (20:32)
[2020-10-28] MEDS ORDERED: LEVO125T8 MT (20:33)
[2020-10-29] VITALS (83 sets, daily range): BP systolic 57–149; BP diastolic 19–86
[2020-10-29 06:40] LABS: BASOPHILS % 1.3 % (0.0-2.0); EOSINOPHILS % 3.7 % (0.0-5.0); HEMATOCRIT. 37.2 % (42.0-52.0); HEMOGLOBIN. 12.4 g/dL (14.0-18.0); LYMPHOCYTES % 8.3 % (20.0-50.0); MEAN CORPUSCULAR HEMOGLOBIN 27.6 pg (28.0-32.0); MEAN PLATELET VOLUME 8.2 fl (7.4-10.4); MONOCYTES % 13.4 % (2.0-8.0); NEUTROPHILS % 73.3 % (40.0-76.0); PLATELET 310 x1000/uL (130-400); RED BLOOD CELL COUNT 4.48 mill/uL (4.7-6.1); RED CELL DISTRIBUTION WIDTH 15.2 % (11.6-14.6)
[2020-10-29] MEDS: ASPIRIN 81MG TABLET PO SCH (08:45)
[2020-10-29] MEDS: ENOXAPARIN 30MG/0.3ML SYR SUBCUT SCH (08:45)
[2020-10-29] MEDS: PIPERACILLIN/TAZOBACTAM 3.375 G in DEXTROSE 5% WATER 50 ML IV SCH ×2 (08:45→21:22)
[2020-10-29] MEDS: MIDODRINE HCL 5MG TABLET PO SCH ×3 (09:14→16:43)
[2020-10-29] MEDS: NOREPINEPHRINE 32 MG in DEXT 5% WATER 218 ML IV PRN (15:32)
[2020-10-30] VITALS (84 sets, daily range): BP systolic 71–152; BP diastolic 30–67
[2020-10-30 06:20] LABS: HEMATOCRIT. 34.3 % (42.0-52.0); HEMOGLOBIN. 11.3 g/dL (14.0-18.0); MEAN CORPUSCULAR HEMOGLOBIN 27.5 pg (28.0-32.0); MEAN CORPUSCULAR VOLUME 83.4 fL (80.0-94.0); PLATELET 229 x1000/uL (130-400); RED BLOOD CELL COUNT 4.11 mill/uL (4.7-6.1); RED CELL DISTRIBUTION WIDTH 14.8 % (11.6-14.6)
[2020-10-30 07:17] LABS: PHOSPHORUS 3.6 mg/dL (2.5-4.9)
[2020-10-30] MEDS: ASPIRIN 81MG TABLET PO SCH (08:46)
[2020-10-30] MEDS: PIPERACILLIN/TAZOBACTAM 3.375 G in DEXTROSE 5% WATER 50 ML IV SCH ×2 (08:46→21:42)
[2020-10-30] MEDS: ENOXAPARIN 30MG/0.3ML SYR SUBCUT SCH (08:47)
[2020-10-30] MEDS: MIDODRINE HCL 5MG TABLET PO SCH ×3 (08:48→16:19)
[2020-10-30 11:20] LABS: PLATELET ESTIMATE NORMAL
[2020-10-30] MEDS: ATORVASTATIN CALCIUM 40MG TABLET PO SCH (20:17)
[2020-10-31] VITALS (11 sets, daily range): BP systolic 77–134; BP diastolic 28–66
[2020-10-31 06:55] LABS: BASOPHILS % 2.5 % (0.0-2.0); EOSINOPHILS % 10.2 % (0.0-5.0); HEMATOCRIT. 35.4 % (42.0-52.0); HEMOGLOBIN. 11.4 g/dL (14.0-18.0); LYMPHOCYTES % 7.4 % (20.0-50.0); MEAN CORPUSCULAR HEMOGLOBIN 27.1 pg (28.0-32.0); MEAN CORPUSCULAR VOLUME 84.1 fL (80.0-94.0); MEAN PLATELET VOLUME 8.6 fl (7.4-10.4); MONOCYTES % 12.8 % (2.0-8.0); NEUTROPHILS % 67.1 % (40.0-76.0); PLATELET 203 x1000/uL (130-400); RED BLOOD CELL COUNT 4.22 mill/uL (4.7-6.1); RED CELL DISTRIBUTION WIDTH 14.9 % (11.6-14.6)
[2020-10-31] MEDS: ASPIRIN 81MG TABLET PO SCH (09:17)
[2020-10-31] MEDS: ENOXAPARIN 30MG/0.3ML SYR SUBCUT SCH (09:17)
[2020-10-31] MEDS: PIPERACILLIN/TAZOBACTAM 3.375 G in DEXTROSE 5% WATER 50 ML IV SCH ×2 (09:17→20:12)
[2020-10-31] MEDS: MIDODRINE HCL 5MG TABLET PO SCH ×3 (09:18→17:34)
[2020-10-31] MEDS: ATORVASTATIN CALCIUM 40MG TABLET PO SCH (20:12)
[2020-11-01] VITALS (8 sets, daily range): BP systolic 90–120; BP diastolic 39–56
[2020-11-01] MEDS: MIDODRINE HCL 5MG TABLET PO SCH (05:23)
[2020-11-01] MEDS: ASPIRIN 81MG TABLET PO SCH (08:15)
[2020-11-01] MEDS: PIPERACILLIN/TAZOBACTAM 3.375 G in DEXTROSE 5% WATER 50 ML IV SCH (08:15)
[2020-11-01] MEDS: ENOXAPARIN 30MG/0.3ML SYR SUBCUT SCH (08:16)
[2020-11-01] MEDS ORDERED: LEVO250T58 MT (09:25)
== END 2020-11-01 11:20 | disposition home or self-care (01) | DRG 871 ==
LOC: ER 19:36 → MICUSO 10-28 00:40 → EDBEDREQTM 10-28 00:43 → EDBEDREQ 10-28 00:43 → EDBEDREQDT 10-28 00:43 → EDBEDREQSVC 10-28 00:43 → CVICU 10-28 15:04 → 3WST 10-30 21:30
PROVIDERS: ADMIT Internal Medicine; ATTEND Internal Medicine
PROC: B544ZZA Ultrasonography of Left Jugular Veins, Guidance (ICD-10-PCS; principal; 2020-10-28)
PROC: 05HN33Z Insertion of Infusion Device into Left Internal Jugular Vein, Percutaneous Approach (ICD-10-PCS; 2020-10-28)
PROC: 5A1D70Z Performance of Urinary Filtration, Intermittent, Less than 6 Hours Per Day (ICD-10-PCS; 2020-10-29)
PROC: 5A1D70Z Performance of Urinary Filtration, Intermittent, Less than 6 Hours Per Day (ICD-10-PCS; 2020-10-31)
PROC: 5A1D70Z Performance of Urinary Filtration, Intermittent, Less than 6 Hours Per Day (ICD-10-PCS; 2020-11-01)
DX: A41.9 Sepsis, unspecified organism (principal); I63.9 Cerebral infarction, unspecified; N18.6 End stage renal disease; R65.21 Severe sepsis with septic shock; J18.9 Pneumonia, unspecified organism; E87.1 Hypo-osmolality and hyponatremia; I13.11 Hypertensive heart and chronic kidney disease without heart failure, with stage 5 chronic kidney disease, or end stage renal disease; D64.9 Anemia, unspecified; E87.6 Hypokalemia; K21.9 Gastro-esophageal reflux disease without esophagitis; Z20.822 Contact with and (suspected) exposure to COVID-19; K59.00 Constipation, unspecified; R77.8 Other specified abnormalities of plasma proteins; E87.8 Other disorders of electrolyte and fluid balance, not elsewhere classified; Z99.2 Dependence on renal dialysis; Z79.82 Long term (current) use of aspirin; Z79.899 Other long term (current) drug therapy
CPT/HCPCS: 36415; 70551; 71045; 80048; 80053; 80061; 82140; 83605; 84100; 84145; 84484; 85025; 86705; 86709; 86803; 87340; 87426; 92610; 93005; 93306; 93880; 97162; 97166; 97530; 99291; J1650; J2543; J3370; J3490; J7040; J7050; J7060

== ENCOUNTER → 2022-06-14 | Day surgery (SDC) | payer MEDICARE, MEDICAID ==
[~2022-06-14] VITALS: Ht 172.7 cm; Wt 67.0 kg
[~2022-06-14] MED LIST changes: +ALBU18HF2 IH; +APIX2.5T PO; -ASPI-1497 PO; +ATOR20TA65 PO; +BACITRACIN 15GM TUBE TOP ONE; +BUPIVACAINE HCL/PF 0.5% (5MG/ML) 10ML ONE; +CEFAZOLIN SODIUM 1000MG/VIAL ONE; -CINA30 PO; +ETOMIDATE 2MG/ML 10ML VIAL IV ONE; +FENTANYL CITRATE/PF 50MCG/ML 2ML VIAL ONE; -FOLI1TAB63 PO; +GENTAMICIN SULF 40MG/ML 2ML VIAL ONE; +HYDROMORPHONE HCL/PF 2MG/ML CPJ IV PRN; +KETAMINE HCL 50 MG/ML 10ML ONE; +LABETALOL 5MG/ML SYR 20 MG/4 ML SYRINGE IV PRN; +LEVO125T8 MT; +LEVO250T74 MT; +LIDOCAINE HCL 1% 10 MG/ML 10ML VIAL ONE; +MEPERIDINE HCL/PF 25MG/ML CPJ IV PRN; +MIDAZOLAM HCL 2 MG/2 ML VIAL ONE; -MIDO10TA PO; +MIDO2.5T MT; +MIDO5TAB4 PO; +OMEP40CA20 MT; +ONDANSETRON HCL 4MG/2ML INJ IV PRN; +PHENYLEPHRINE HCL 10 MG/ML 1ML (IV VIAL) IV ONE; +POLYMYXIN B SULFATE 500000 UNITS/VIAL ONE; +PROPOFOL 200MG/20ML VIAL IV ONE; +VANCOMYCIN HCL 1 GM/VIAL ONE
[2022-06-14 07:46] LABS: HEMATOCRIT. 25.7 % (42.0-52.0); HEMOGLOBIN. 8.2 g/dL (14.0-18.0); MEAN CORPUSCULAR HEMOGLOBIN 22.1 pg (28.0-32.0); MEAN CORPUSCULAR VOLUME 68.9 fL (80.0-94.0); MEAN PLATELET VOLUME 7.4 fl (7.4-10.4); PLATELET 397 x1000/uL (130-400); RED BLOOD CELL COUNT 3.73 mill/uL (4.7-6.1); RED CELL DISTRIBUTION WIDTH 20.2 % (11.6-14.6)
[2022-06-14 07:52] LABS: INR 1.2; PARTIAL THROMBOPLASTIN TIME 29.2 sec (23.4-31.0); PROTHROMBIN TIME 12.4 sec (9.6-11.0)
[2022-06-14 10:44] LABS: PLATELET ESTIMATE NORMAL
== END | disposition home or self-care (01) ==
LOC: OR 06:47
PROVIDERS: ATTEND Podiatrist Foot & Ankle Surgery
DX: I96 Gangrene, not elsewhere classified (principal); I48.91 Unspecified atrial fibrillation; D64.9 Anemia, unspecified; E03.9 Hypothyroidism, unspecified; N18.6 End stage renal disease; I95.89 Other hypotension; Z99.2 Dependence on renal dialysis; Z86.73 Personal history of transient ischemic attack (TIA), and cerebral infarction without residual deficits; Z79.899 Other long term (current) drug therapy; Z98.890 Other specified postprocedural states; Z20.822 Contact with and (suspected) exposure to COVID-19
CPT/HCPCS: 28805; 36415; 80048; 85025; 85610; 85730; 87070; 87075; 87077; 87186; 87205; 87426; 88305; 88311; 93005; A4217; C1893; C9803; J0690; J2250; J2370; J2704; J3010; J3490; Z7610; J1580; J3370